=== PATIENT | female | born 1940 | race Caucasian/White ===

== ENCOUNTER 2016-10-26 10:37 | Inpatient (IN) | payer OTHER ==
[2016-10-26 11:14] VITALS: BMI 36.8
[2016-10-26 12:50] LABS: BASOPHILS % (AUTO) 0.5 % (0.0-3.0); EOSINOPHILS # (AUTO) 0.3 K/ul (0.0-0.7); HEMATOCRIT 30.8 % (37.0-47.0); HEMOGLOBIN 9.2 g/dl (12.0-16.0); IMMATURE GRANULOCYTE % (AUTO) 0.4 % (0.0-5.0); LYMPHOCYTES # (AUTO) 1.9 K/uL (0.60-3.4); LYMPHOCYTES % (AUTO) 23.7 (10.0-50.0); MEAN CORPUSCULAR HEMOGLOBIN 24.5 pg (27.0-31.0); MEAN CORPUSCULAR HGB CONC 29.9 (31.8-35.4); MEAN CORPUSCULAR VOLUME 81.9 fl (81.0-99.0); MONOCYTES # (AUTO) 0.5 K/uL (0.4-2.0); MONOCYTES % (AUTO) 6.1 (0-10); NEUTROPHILS # (AUTO) 5.4 K/ul (2.0-6.9); NEUTROPHILS % (AUTO) 66.3; PLATELET COUNT 232 10^3/uL (140-440); RED BLOOD COUNT 3.76 10^6/ul (4.20-5.40)
[2016-10-26 13:17] LABS: ALBUMIN 3.5 g/dL (3.4-5.0); ALBUMIN/GLOBULIN RATIO 0.73; ANION GAP 13.2; BILIRUBIN,TOTAL 0.58 mg/dL (0.00-1.20); BUN/CREATININE RATIO 16.3; CREATININE 0.92 mg/dL (0.60-1.30); POTASSIUM 4.2 mmol/L (3.5-5.10); TOTAL PROTEIN 8.3 g/dL (5.8-8.1)
--- NOTE | 2016-10-26 13:37 | DI ---
EXAM: Chest two view, frontal and lateral views. HISTORY: Shortness of air. COMPARISON: 05/10/2016. FINDINGS: The heart size is normal. There has been previous CABG. There is no pulmonary vascular congestion. The lungs are clear. No pleural effusion or pneumothorax is seen. No acute osseous ab normality identified. Since the prior study, there has been no significant interval change. IMPRESSION: No acute cardiopulmonary process.
--- NOTE | 2016-10-26 13:39 | DI ---
EXAM: Acute abdomen series. HISTORY: Abdominal pain. COMPARISON: CT 08/02/2015. TECHNIQUE: Supine and upright views of the abdomen. FINDINGS: Visualized lungs are clear. Air and stool noted throughout the colon. Staple line seen in the rectum. Air seen within a few mildly distended small bowel loops. No air-fluid levels or fr ee air identified. Calcifications seen over the right renal silhouette. Phleboliths noted in the l ower abdomen and pelvis. Degenerative changes present in the spine.. IMPRESSION: 1. Nonspecific bowel gas pattern. 2. Right nephrolithiasis.
[2016-10-26] MEDS ORDERED: NON-FORMULARY MEDICATION (Calcium Carbonate [Calcium] 500 MG) PO SCH (13:45)
[2016-10-26] MEDS ORDERED: NON-FORMULARY MEDICATION (Losartan Potassium [Losartan Potassium] 100 MG) PO SCH ×22 (13:45)
[2016-10-26] MEDS ORDERED: ASPIRIN EC PO SCH (14:00)
[2016-10-26 15:01] LABS: BILIRUBIN,URINE Negative (NEGATIVE); KETONES,URINE Negative (NEGATIVE); LEUKOCYTE ESTERASE ,URINE Negative (NEGATIVE); NITRITE,URINE Negative (NEGATIVE); PROTEIN,URINE Negative (NEGATIVE); URINE, BLOOD Negative (NEGATIVE)
[2016-10-26 15:15] LABS: ADD URINE MICROSCOPIC NO
[2016-10-26] MEDS: COZAAR PO SCH (15:34)
[2016-10-26] MEDS: CALCIUM 500 + VIT D 200 MG TABLET PO SCH (15:34)
[2016-10-26] MEDS: ASPIRIN EC PO SCH (15:34)
[2016-10-26] MEDS: LOPRESSOR PO SCH ×2 (15:34→21:01)
[2016-10-26] MEDS ORDERED: SITAGLIPTIN PHOS PO SCH (17:30)
[2016-10-26] MEDS ORDERED: [UNRECOGNIZED DRUG - OTHER] PO SCH (17:30)
[2016-10-26] MEDS ORDERED: METFORMIN HCL PO SCH (17:30)
[2016-10-26] MEDS ORDERED: LANTUS SUBCUT SCH ×2 (18:15→21:00)
[2016-10-26] MEDS: GLUCOPHAGE PO SCH (18:25)
[2016-10-26] MEDS: JANUVIA PO SCH (18:25)
[2016-10-26] MEDS ORDERED: MORPHINE 2 MG/ML SYRINGE IVP PRN (18:42)
[2016-10-26] MEDS ORDERED: PROTONIX IV IVP SCH (19:00)
[2016-10-26] MEDS ORDERED: POTASSIUM CHLORIDE 20 MEQ VIAL-ADDITIVE ONLY IV ONE (20:35)
[2016-10-26] MEDS ORDERED: PROTONIX IV ONE (20:35)
[2016-10-26] MEDS: POTASSIUM CHLORIDE 10 MEQ VIAL-ADDITIVE ONLY 20 MEQ in SODIUM CHLORIDE 1,000 ML IV SCH (20:45)
[2016-10-26] MEDS: CLARITIN PO SCH (21:00)
[2016-10-26] MEDS ORDERED: NAPROSYN PO SCH (21:00)
[2016-10-27 05:18] LABS: CHOL/HDL RATIO 7.3 (4.5-5.5)
[2016-10-27] MEDS: ASPIRIN EC PO SCH (08:58)
[2016-10-27] MEDS: LOPRESSOR PO SCH ×2 (08:58→21:43)
[2016-10-27] MEDS: CALCIUM 500 + VIT D 200 MG TABLET PO SCH (08:59)
[2016-10-27] MEDS: JANUVIA PO SCH ×2 (08:59→17:28)
[2016-10-27] MEDS: COZAAR PO SCH (08:59)
[2016-10-27] MEDS: GLUCOPHAGE PO SCH (08:59)
[2016-10-27] MEDS: POTASSIUM CHLORIDE 20 MEQ VIAL-ADDITIVE ONLY 20 MEQ in SODIUM CHLORIDE 1,000 ML IV SCH ×2 (09:35→23:39)
--- NOTE | 2016-10-27 09:59 | HP ---
CHIEF COMPLAINT: Epigastric and right upper quadrant pain. SOURCE OF HISTORY: Patient. HISTORY OF PRESENT ILLNESS: The patient, since about two weeks ago, had experienced aching epigastric pain upon waking up in the morning with increasing intensity towards evening. The patient had been eating less because of the exacerbation of the pain. The pain eases through the night since she takes two Aleve, which partly relieves the discomfort and pain. The pain has increased in intensity prompting her visit to the office today. The patient denied any fever and denied any change in bowel habits. She had no fever or chills. The patient on palpation of the stomach had a markedly tender epigastric area with a mass, which may be liver since she also has tenderness in the right subcostal area. The mass seemed to extend to the midportion of the area between the umbilicus and xiphoid process. The patient was then admitted and because of the abdominal pain and the palpation of the mass for further diagnosis. The patient also is diabetic and had been uncontrolled in the past and the patient was advised Insulin, but refuses to use Insulin and wanted a longer time to see if she can control it with the oral medication. The patient had lost about 4 pounds in a short length of time. 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 The patient had colonoscopy 2015. FAMILY HISTORY: Mother with some heart disease and some members of the family on the maternal side had stroke. Father had congestive heart failure and history of diabetes in the paternal side. Father's side also had diabetes mellitus. SOCIAL HISTORY: The patient is and resides with her . She never did smoke and does not drink any alcoholic beverages. MEDICATIONS: Prior to this admission. Naproxen 250 mg, two tablets at bedtime Losartan 100 mg tablet daily Loratadine 10 mg daily Metoprolol Tartrate 50 mg twice a day Aspirin 81 mg daily Janumet 50/500 mg one twice a day Calcium Carbonate 500 mg tablet daily ALLERGIES: Dilaudid, Penicillin, Sulfa and adhesive tape. REVIEW OF SYSTEMS: CONSTITUTIONAL: The patient has no fever or chills, but is fatigued. She had been feeling tired for sometime. 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 VISUAL: Denies any blurred vision, double vision or transient loss of vision. AUDITORY: The patient's hearing is adequate. No tinnitus, no pain or drainage. Hearing loss on the left side. RESPIRATORY: Denies any shortness of breath with usual exertion and no cough. CARDIOVASCULAR: Denies any chest pain. This patient is known to have coronary artery disease and had a bypass surgery 2009. GASTROINTESTINAL: The patient's appetite is maybe slightly less. The patient had not been eating since food aggravates the pain. She does have pain in the epigastric area, as well as right upper quadrant with marked tenderness to palpation and a palpable mass. The patient on the other parts of the abdomen causes discomfort in the epigastric and right upper quadrant. GENITOURINARY: The patient does have some frequency, but no pain and no urgency. MUSCULOSKELETAL: The patient does have some joint pains. ENDOCRINE: The patient is known to have diabetes mellitus for some time. INTEGUMENT: No rash or pruritus. HEMATOLOGIC: No history of prolonged bleeding. PSYCHIATRIC: Affect is normal. PHYSICAL EXAMINATION: GENERAL: We have a 75 year old female admitted to the hospital because of epigastric pain increasing in intensity with a palpable mass in the epigastric area. VITAL SIGNS: Temperature 97.4, pulse 79, blood pressure left 148/82, right 146/ 78, respiratory rate 18, oxygen saturation 97 on room air. 5'4", 214 pounds and 8 ounces, BMI 36.8. HEAD: Unremarkable. FACE: Symmetrical and equal with no facial weakness. No tenderness in the frontal or maxillary sinus areas to palpation under pressure. EYES: Pupils equal/reactive to light about 3 mm in size. Conjunctivae not pale. Sclerae not icteric. EARS: No drainage. The patient has hearing loss on the left side. MOUTH: Unremarkable. THROAT: No inflammation, no tumors or exudate. NECK: No masses. No bruit. No tenderness. No rigidity. CHEST: Symmetrical and equal with good expansion. No remarkable tenderness. LUNGS: Breath sounds are heard in both sides. No rales or wheezing. HEART: Audible and regular with good tones. No murmurs. ABDOMEN: Flat to slightly protuberant with marked tenderness in the epigastric area, as well as the right upper quadrant. A palpable mass in the epigastric, as well as the medial right subcostal. Mass in of unknown nature and could be liver. Palpation of the lower abdomen revealed no significant tenderness, but does produce discomfort in the upper quadrant of the abdomen. Scar from previous surgeries noted. EXTERNAL GENITALIA: Not examined. PELVIC AND RECTAL: Not done. LOWER EXTREMITIES: Symmetrical and equal and with some ankle edema. Posterior tibial pulses are present. Anterior tibials are absent. UPPER EXTREMITIES: Symmetrical and equal. ASSESSMENT: 1. EPIGASTRIC AND RIGHT UPPER QUADRANT PAIN WITH PALPABLE MASS NATURE UNDETERMINED 2. DIABETES MELLITUS, UNCONTROLLED 3. HYPERTENSION 4. CORONARY ARTERY DISEASE, STATUS POST BYPASS 2009 5. PERIPHERAL ARTERIAL DISEASE, ABSENT ANTERIOR TIBIAL PULSES 6. ELEVATED BMI 36.8 PLAN: 1. This patient will be placed on Insulin. 2. The patient also will have an ultrasound of the abdomen, particularly looking for the liver, pancreas and any abdominal masses in the upper abdomen. If this is not satisfactory, this patient should undergo a CT scan of the abdomen and pelvis with IV contrast. Her E GFR is 60. MTDD
--- NOTE | 2016-10-27 10:27 | US ---
EXAM: Ultrasound abdomen complete HISTORY: Abdominal pain and epigastric mass COMPARISON: None TECHNIQUE: Ultrasound abdomen complete was performed FINDINGS: Visualized pancreatic parenchyma appears normal. There is mild dilation of the pancreatic duct measuring up to 0.65 cm. Liver is coarsened in echogenicity with suggestion of nodular contou r. Liver is mildly enlarged. Gallbladder is fluid-filled without gallbladder wall thickening, aleaxndre cholecystic fluid, or shadowing gallstones. No biliary duct dilation with the common bile duct barbi uring 0.5 cm. Visualized portions aorta and inferior vena cava appear normal. Right kidney measure s 11.7 cm in length and left kidney measures 12.1 cm in length. Small echogenic focus left kidney , representing questionable left nephrolithiasis. No hydronephrosis. Spleen is enlarged, measures 1 4.3 cm in length. Bladder is only mildly distended and poorly evaluated. IMPRESSION: 1. Mild dilation of the pancreatic duct. This finding is indeterminate and CT with contrast is rec ommended for further evaluation. 2. Cirrhotic configuration of the liver suggested. Splenomegaly suggests portal hypertension. 3. Questionable left nephrolithiasis. No hydronephrosis.
[2016-10-27] MEDS: POTASSIUM CHLORIDE 10 MEQ VIAL-ADDITIVE ONLY 20 MEQ in SODIUM CHLORIDE 1,000 ML IV SCH (10:32)
[2016-10-27 12:05] LABS: ALBUMIN/GLOBULIN RATIO 0.75; ANION GAP 15.2; BILIRUBIN,DIRECT 0.22 mg/dL (0.00-0.30); BILIRUBIN,TOTAL 0.43 mg/dL (0.00-1.20); BUN/CREATININE RATIO 17.5; CALCIUM 9.2 mg/dL (8.2-10.2); CREATININE 0.8 mg/dL (0.60-1.30); POTASSIUM 4.2 mmol/L (3.5-5.10)
--- NOTE | 2016-10-27 15:05 | CT ---
EXAM: CT abdomen pelvis with contrast HISTORY: Abdominal pain COMPARISON: Ultrasound same day and CT 08/02/2015 TECHNIQUE: CT abdomen pelvis performed with intravenous contrast. Coronal and sagittal reformatted images obtained. The FINDINGS: Mild bibasilar atelectasis. No free air. No acute abnormalities of the bones. There i s degenerative change in the spine. Heart is normal in size. Liver is enlarged with enlargement o f the left hepatic lobe and caudate with nodular contour of the liver, suggesting cirrhotic configur ation. Gallbladder appears normal. Pancreas appears normal. No pancreatic duct dilation. The splee n is mildly enlarged. Adrenal glands appear normal. There are several small calculi in the right kidney measuring up to 3 mm. There is a 1 cm right renal cyst. No hydronephrosis. Bladder is only mildly distended and poorly evaluated, grossly unremarkable. Aorta normal in caliber with atherosc lerosis of the aorta and is branches. Small fat-containing umbilical hernia. Stomach appears alpesh l. No dilated loops small bowel. Appendix not visualized. There is colonic diverticulosis. There is a sigmoid anastomoses. Patient status post hysterectomy. There is suggestion of a recanalized p araumbilical vein. Redemonstration of stable prominent babak hepatic lymph nodes, grossly unchanged . IMPRESSION: 1. No acute inflammatory process identified in the abdomen or pelvis. 2. Pancreas appears normal without pancreatic duct dilation. The finding on ultrasound was likely t echnical/artifactual. 3. Configuration of the liver suggesting cirrhosis. Mild splenomegaly and suggestion of recanalize d paraumbilical vein suggests portal hypertension. Stable prominent babak hepatic lymph nodes, nons pecific, though likely related to underlying liver disease. 4. Colonic diverticulosis. 5. Right nephrolithiasis. 6. Sigmoid anastomoses.
[2016-10-27] MEDS: HUMALOG SUBCUT PRN ×2 (15:27→17:10)
[2016-10-27] MEDS: PRAVACHOL PO SCH (17:28)
[2016-10-27] MEDS ORDERED: MILK OF MAGNESIA PO STA (20:39)
[2016-10-27] MEDS: PROTONIX IV IVP SCH (20:52)
[2016-10-27] MEDS: LANTUS SUBCUT SCH (21:09)
[2016-10-27] MEDS: CLARITIN PO SCH (21:43)
[2016-10-28] MEDS: HUMALOG SUBCUT PRN ×4 (08:10→20:52)
[2016-10-28] MEDS: ASPIRIN EC PO SCH (09:30)
[2016-10-28] MEDS: CALCIUM 500 + VIT D 200 MG TABLET PO SCH (09:31)
[2016-10-28] MEDS: LOPRESSOR PO SCH ×2 (09:31→20:53)
[2016-10-28] MEDS: COZAAR PO SCH (09:31)
[2016-10-28] MEDS: JANUVIA PO SCH ×2 (09:32→16:54)
[2016-10-28] MEDS: MILK OF MAGNESIA PO SCH (09:33)
[2016-10-28 13:47] LABS: ALBUMIN 3.3 g/dL (3.4-5.0); ALBUMIN/GLOBULIN RATIO 0.72; ANION GAP 13.6; BILIRUBIN,DIRECT 0.24 mg/dL (0.00-0.30); BILIRUBIN,TOTAL 0.46 mg/dL (0.00-1.20); BUN/CREATININE RATIO 17.02; CREATININE 0.94 mg/dL (0.60-1.30); PHOSPHORUS 3.3 mg/dL (2.8-4.1); POTASSIUM 4.6 mmol/L (3.5-5.10); TOTAL PROTEIN 7.9 g/dL (5.8-8.1)
[2016-10-28] MEDS: PRAVACHOL PO SCH (16:54)
[2016-10-28] MEDS: LANTUS SUBCUT SCH (20:51)
[2016-10-28] MEDS: PROTONIX IV IVP SCH (20:52)
[2016-10-28] MEDS: CLARITIN PO SCH (20:53)
[2016-10-29 05:13] LABS: ALBUMIN/GLOBULIN RATIO 0.71; ANION GAP 13.1; BILIRUBIN,DIRECT 0.24 mg/dL (0.00-0.30); BILIRUBIN,TOTAL 0.53 mg/dL (0.00-1.20); BUN/CREATININE RATIO 18.82; CALCIUM 9.8 mg/dL (8.2-10.2); CREATININE 0.85 mg/dL (0.60-1.30); PHOSPHORUS 3.6 mg/dL (2.8-4.1); POTASSIUM 4.1 mmol/L (3.5-5.10); TOTAL PROTEIN 7.2 g/dL (5.8-8.1)
[2016-10-29] MEDS: JANUVIA PO SCH ×2 (08:36→16:32)
[2016-10-29] MEDS: ASPIRIN EC PO SCH (08:36)
[2016-10-29] MEDS: CALCIUM 500 + VIT D 200 MG TABLET PO SCH (08:36)
[2016-10-29] MEDS: MILK OF MAGNESIA PO SCH (08:37)
[2016-10-29] MEDS: LOPRESSOR PO SCH ×2 (08:37→20:15)
[2016-10-29] MEDS: COZAAR PO SCH (08:37)
[2016-10-29] MEDS: HUMALOG SUBCUT PRN ×4 (08:38→21:04)
[2016-10-29 13:00] LABS: H. PYLORI STOOL ANTIGEN NEGATIVE (NEGATIVE); H.PYLORI STOOL AG INTERNAL QC INTERNAL QC VALID
[2016-10-29] MEDS: PRAVACHOL PO SCH (16:32)
[2016-10-29] MEDS: GLUCOPHAGE PO SCH (17:04)
[2016-10-29] MEDS: CLARITIN PO SCH (20:15)
[2016-10-29] MEDS: PROTONIX IV IVP SCH (20:16)
[2016-10-29] MEDS: LANTUS SUBCUT SCH (20:17)
[2016-10-30 04:29] LABS: BASOPHILS % (AUTO) 0.6 % (0.0-3.0); EOSINOPHILS # (AUTO) 0.3 K/ul (0.0-0.7); EOSINOPHILS % (AUTO) 4.3 % (0.0-7.0); HEMATOCRIT 27.6 % (37.0-47.0); HEMOGLOBIN 8.3 g/dl (12.0-16.0); IMMATURE GRANULOCYTE % (AUTO) 0.3 % (0.0-5.0); LYMPHOCYTES # (AUTO) 1.8 K/uL (0.60-3.4); LYMPHOCYTES % (AUTO) 26.1 (10.0-50.0); MEAN CORPUSCULAR HEMOGLOBIN 24.6 pg (27.0-31.0); MEAN CORPUSCULAR HGB CONC 30.1 (31.8-35.4); MEAN CORPUSCULAR VOLUME 81.7 fl (81.0-99.0); MONOCYTES # (AUTO) 0.7 K/uL (0.4-2.0); MONOCYTES % (AUTO) 9.6 (0-10); NEUTROPHILS % (AUTO) 59.1; PLATELET COUNT 216 10^3/uL (140-440); RED BLOOD COUNT 3.38 10^6/ul (4.20-5.40); WHITE BLOOD COUNT 6.74 K/ul (4.6-10.2)
[2016-10-30 04:51] LABS: ALBUMIN/GLOBULIN RATIO 0.73; BILIRUBIN,TOTAL 0.48 mg/dL (0.00-1.20); BUN/CREATININE RATIO 20.68; CALCIUM 9.8 mg/dL (8.2-10.2); CHOL/HDL RATIO 6.4 (4.5-5.5); CREATININE 0.87 mg/dL (0.60-1.30); TOTAL PROTEIN 7.1 g/dL (5.8-8.1)
[2016-10-30] MEDS: HUMALOG SUBCUT PRN ×2 (08:00→12:20)
[2016-10-30] MEDS: ASPIRIN EC PO SCH (08:40)
[2016-10-30] MEDS: GLUCOPHAGE PO SCH (08:40)
[2016-10-30] MEDS: CALCIUM 500 + VIT D 200 MG TABLET PO SCH (08:41)
[2016-10-30] MEDS: JANUVIA PO SCH (08:41)
[2016-10-30] MEDS: COZAAR PO SCH (08:42)
[2016-10-30] MEDS: LOPRESSOR PO SCH (08:43)
--- NOTE | 2016-10-30 09:11 | PN ---
DATE OF VISIT: 10/29/16 SUBJECTIVE: The patient is alert, with a better humor today. I did tell her in the presents of her that her blood sugar is lower now below 200, 196. We will see how it is tomorrow. She does tell me that she knows how to give herself a shot with insulin and also knows about how much or how to draw the insulin from the vial. If her insurance would approve a FlexPen then we will prescribe her a FlexPen but we would need to know if the insurance would approve that and if not this patient will be given vials, plus needles but syringes in order to give herself insulin. Her appetite seems to be good. LABS: Chemistries today showed normal electrolytes, normal CO2, EGFR is 65, blood sugar fasting 196 from 278 yesterday and 221 the other day and was 368 on admission. [facility]
--- NOTE | 2016-10-30 09:16 | PN ---
DATE OF VISIT: 10/27/16 SUBJECTIVE: The patient is alert, oriented times four, not dyspneic or tachypneic. Her is present during the course of the conversation. I did tell her what we found on the ultrasound and CT scan. I told her that she has cirrhosis of the liver and most likely secondary to obesity since she doesn't drink alcohol. There is no indication of any tumor any inflammation in her abdomen. The liver is somewhat enlarged. I told her that the pain and tenderness in the pit of the stomach on the right side of the upper abdomen is due to the liver that is enlarged at this time. I informed her that the liver cirrhosis is most likely due to obesity. I did advise her that she needed to exercise and lose weight. We had discussed this for a long time previously. This patient had coronary artery disease and it is imperative also that she would need to lose some weight. She told me that she could not exercise because she gets short of breath and she has arthritic problems in the joints. I did tell her that the shortness of breath sometimes is due to multiple reasons, one most likely is deconditioning. We may have to start slowly and increasing. The asked me if an exercise gadget would help and I said yes. He was thinking about one that someone could just stand and move forward and backward like walking but not moving the legs and also using the arm at the same time. I did tell her that we probably will need to keep her for another 2 to 3 days to get a better handle on the diabetes. She now will be on insulin to get better control. Her diabetes is uncontrolled. The patient will be given diabetic teaching while in the hospital. OBJECTIVE: VITAL SIGNS: At 6 o'clock in the evening: Temperature 97.6, pulse 75, BP 108/62 , respiratory rate 20, oxygen saturation 95% on room air. MTDD
[2016-10-30] MEDS: MILK OF MAGNESIA PO SCH (09:17)
[2016-10-30 10:13] VITALS: BP 121/67; TEMP 97.8
--- NOTE | 2016-10-31 09:59 | DS ---
DATE OF ADMISSION: 10/26/16 DATE OF DISCHARGE: 10/30/16 PATIENT IDENTIFICATION: The patient is a 75 year old female was seen at the office complaining of epigastric pain for about 2 weeks. The pain begins upon waking up in the morning with increasing intensity towards the evening. She does take two Aleve to help the pain in the evening. The pain is increasing in intensity prompting the office visit. The patient during the examination is alert and oriented with movement of all extremities, not dyspneic or tachypneic and no obvious distress. Palpation of the abdomen revealed a mass beginning from the midline and extending about 4 fingerbreadths. It is markedly tender and the epigastric area is also tender. The patient has tenderness also on the subcostal area. The tenderness is elicited by palpating the palpable mass. The patient was then admitted to the hospital because of the persistent pain and the palpable mass with tenderness. HOSPITAL COURSE: The patient during this admission had the following investigation; CBC on admission and also on discharge 10/26 and 10/30 respectively or essentially unchanged showing moderate anemia 9.2hgb and 8.3 on discharge. MCV 81.9 and 81.7 , MCHC 24.5 and 24.6 respectively, RDW 15.9 and 15.9. Chemistries were ordered 10/26, 10/27, 10/28,10/29 and 10/30. Electrolytes and CO2 were essentially unremarkable and were normal. BUN was normal, Creatinine within normal, EGFR 60 to 70. Blood sugar on admission 368, hgb A1c 11.3. AST 51, ALT 50, Total protein 8.3 on admission but has decreased during the hospital stay probably secondary to hydration. Albumin 3.5 subsequently below normal at 3.0. Lipid is normal except for the markedly low HDL 22, ratio elevated 7.3. Amylase and Lipase normal. The patient's fasting blood sugar had gradually in a downward tend on 368, 221, 278, 196 and 200. This patient is receiving Lantus insulin and Humalog sliding scale. Chest X-ray on admission showed no acute cardiopulmonary process supine and abdominal x-rays non-specific gas bowel pattern and right nephrolithiasis. Abdominal ultrasound showed mild dilation of the pancreatic duct, finding is indeterminate and CT with contrast recommended, Cirrhotic configuration of the liver suggested. Splenomegaly suggests portal hypertension and Questionable left nephrolithiasis and Hydronephrosis. CAT scan of the abdomen and pelvis with IV contrast No acute inflammatory process identified in the abdomen and pelvis, pancreas appears normal without pancreatic duct dilation, configuration of the liver suggesting cirrhosis, mild splenomegaly and suggestion of recanalized paraumbilical vein suggesting protal hypertension, stable prominent babak hepatic lymph nodes, nonspecific though likely related to underlying liver disease, Colonic diverticulosis and Right nephrolithiasis. The patient during this hospital stay showed a normal temperature, blood pressure within normal and no wide fluctuation, pulse ranged from 69 to 80, respiratory rate 14 to 20 and oxygen saturation ranged from 94 to 97% at room air. The patient's BMI at this admission is 36.7. The patient's medication from home consisted on Naproxen 250mg two at night, Losartan 100mg daily, Loratadine 10mg daily, Metoprolol 50mg twice a day tartrate, Aspirin 81mg daily, Janumet 50-500mg one twice a day and Calcium carbonate 500mg daily. Drug Allergies: Hydromorphone, Penicillin, Sulfonamide and TAPE. The patient was continued on the home medication except the Naproxen and one half sodium Chloride 1,000cc pulse potassium 20meq running at 12 hours per 1, 000. She also was given Protonix intervenously daily and initiated on Lantus insulin at 10 units SUBCUT at bedtime increased to 30. The patient was also placed on sliding scale using the formula of blood sugar determined minus 100 divided by 20 equals the number of units to be given at breakfast, at lunch and at supper time. No coverage for the evening. The patient has tolerated the insulin injection and she was education on how to do the injection. She already does the Accu-check at home and the patient was instructed to have the Accu- check done before breakfast, before lunch and before supper. I did ask her to write down the numbers that she had obtained from testing. I did advise her to come and see me a week from today and should bring the number or the recordings. She was given a prescription of the Protonix 40mg daily, Pravastatin 40mg daily at bedtime, Lantus Solostar 30units SUBCUT at 9:00 in the evening and Humalog for sliding scale Kwikpen. Also prescribed is [employer] breeze test strips and Lancets for the sugar monitoring. The patient at discharge is alert, ambulatory with movement of all extremities and cheerful with no facial weakness. LUNGS: clear to auscultation in both side HEART: Audible and regular with good tones ABDOMEN: Markedly less tender including the mass which is the liver enlargement. The was present in the course of the instruction. I did advise the patient to pursue a slow increasing exercise to be done several times a day and to avoid simple carbohydrates such as bread, white potato or anything that has wheat. Diet should consist mostly of vegetables, meat and fish. Calories should also be limited to about 1,800. She is advised to drink water instead of any soda either diet or non-diet. To resume the Janumet. FINAL DIAGNOSES: 1. Mass GIBSON (non-alcoholic steatohepatitis) 2. Diabetes Mellitus, uncontrolled 3. Elevated BMI 4. Coronary artery disease, post bypass MTDD
--- NOTE | 2017-01-11 08:47 | PN ---
DATE OF VISIT: 10/28/16 The patient's blood sugar this morning is 278. The AST is slightly higher than admission 62 from 51. The GFR has fluctuated and it was 60 and then on the second day was 70 and now down to 58. VITALS SIGNS: At 5:32 p.m. 10/28/2016 showed a temperature of 97, pulse 72, blood pressure 127/66, respiratory rate 18, oxygen saturation 97 at room air. The patient is able to consume about 100% of her snack, as well as lunch. Accuchecks were 242 and 248 respectively. LUNGS: Breath sounds are heard in both sides. No rales or wheezing. HEART: Audible and regular with good tones. No murmurs. ABDOMEN: No tenderness. LOWER EXTREMITIES: No tenderness in the calf muscles. Condition: Stable. MTDD
== END 2016-10-30 14:49 | disposition home or self-care (01) | DRG 442 ==
LOC: MEDSURG B 10:37
PROVIDERS: ADMIT General Practice; ATTEND General Practice
DX: K75.81 Nonalcoholic steatohepatitis (NASH) (principal); K76.6 Portal hypertension; E11.65 Type 2 diabetes mellitus with hyperglycemia; R63.8 Other symptoms and signs concerning food and fluid intake; I25.10 Atherosclerotic heart disease of native coronary artery without angina pectoris; N20.0 Calculus of kidney; K74.60 Unspecified cirrhosis of liver; R16.1 Splenomegaly, not elsewhere classified; K57.30 Diverticulosis of large intestine without perforation or abscess without bleeding; E66.9 Obesity, unspecified; Z79.84 Long term (current) use of oral hypoglycemic drugs; Z95.1 Presence of aortocoronary bypass graft; Z79.899 Other long term (current) drug therapy; Z71.89 Other specified counseling
CPT/HCPCS: 36415; 80053; 80061; 81001; 82150; 82248; 82378; 82962; 83036; 83519; 83525; 83690; 84100; 84681; 85025; 87338; 97802; 99223; 99232; 99239

== ENCOUNTER 2016-12-29 16:46 | Emergency (ER) ==
[2016-12-29] MEDS ORDERED: ASPIRIN CHEWABLE ONE (16:50)
[2016-12-29] MEDS ORDERED: ASPIRIN CHEWABLE PO STA ×2 (16:59→17:34)
[2016-12-29 17:00] VITALS: BP 178/84; TEMP 98.5; BMI 30.9
[2016-12-29] MEDS ORDERED: LOPRESSOR IVP STA (17:00)
[2016-12-29 17:06] LABS: BASOPHILS % (AUTO) 0.3 % (0.0-3.0); EOSINOPHILS # (AUTO) 0.2 K/ul (0.0-0.7); EOSINOPHILS % (AUTO) 2.4 % (0.0-7.0); HEMOGLOBIN 9.2 g/dl (12.0-16.0); IMMATURE GRANULOCYTE % (AUTO) 0.3 % (0.0-5.0); LYMPHOCYTES % (AUTO) 22.1 (10.0-50.0); MEAN CORPUSCULAR HEMOGLOBIN 24.1 pg (27.0-31.0); MEAN CORPUSCULAR HGB CONC 30.7 (31.8-35.4); MEAN CORPUSCULAR VOLUME 78.7 fl (81.0-99.0); MONOCYTES # (AUTO) 0.7 K/uL (0.4-2.0); MONOCYTES % (AUTO) 7.7 (0-10); NEUTROPHILS # (AUTO) 5.9 K/ul (2.0-6.9); NEUTROPHILS % (AUTO) 67.2; PLATELET COUNT 228 10^3/uL (140-440); RED BLOOD COUNT 3.81 10^6/ul (4.20-5.40); WHITE BLOOD COUNT 8.85 K/ul (4.6-10.2)
--- NOTE | 2016-12-29 17:14 | ED.PDOC ---
General ED Provider: Dr. GREYSON JIMENEZ Chief Complaint: Chest Pain Stated Complaint: chest pain Time Seen by Physician: 16:50 (chest pain) Information Source: Patient Exam Limitations: No limitations [facility] and Triage Documentation Reviewed and Agree: Yes (took one asprin 81mg this morning) Cardiovascular Complaint Exam - Chest Pain Complaint/Exam Onset: Sudden Duration: 2 hrs ago Symptoms Are: Still present (but resolved about 5pm) Timing: Intermittent Initial Severity: Moderate Current Severity: None Location: Reports: Midsternal Pain Radiates: Reports: None Character: Reports: Aching Aggravating: Reports: None Alleviating: Reports: Rest, Spontaneous resolution Associated Signs and Symptoms: Denies: Diaphoresis, Nausea, Vomiting, Fever, Palpitations, Cough, Hemoptysis, Back pain, Abdominal pain, Dizziness, Short of air, Calf pain, Calf swelling AMI/ACS Risk Factors: Reports: Sedentary, Diabetes, Hypertension, Dyslipidemia TAD Risk Factors: Reports: Hypertension Pulmonary Embolism Risk Factors: Reports: None Prior Care for this Complaint: No Recent Stress Test: No Recent Echo/LV Function: No JVD Present: No Subcutaneous Emphysema Present: No Diminshed Breath Sounds: No Reproducible Chest Wall Pain: No Bilateral Pulses Present: No Unequal Pulses Noted: No If Risk Factors for AMI/ACS Consider: EKG, Cardiac Enzymes Differential Diagnoses: Acute VT Quality Indicators For Acute VT or Cardiac Chest Pain: EKG in 10min. Review of Systems - Review Of Systems Constitutional: Reports: No symptoms Eyes: Reports: No symptoms Ears, Nose, Mouth, Throat: Reports: No symptoms Respiratory: Reports: No symptoms Cardiac: Reports: Chest pain GI: Reports: No symptoms : Reports: No symptoms Musculoskeletal: Reports: No symptoms Skin: Reports: No symptoms Neurological: Reports: No symptoms Endocrine: Reports: No symptoms Hematologic/Lymphatic: Reports: No symptoms All Other Systems: Reviewed and Negative Past Medical History - Past Medical History Previously Healthy: No Endocrine: Reports: DM 2, Dyslipidemia Cardiovascular: Reports: CAD, Hypertension Respiratory: Reports: None Hematological: Reports: None Gastrointestinal: Reports: None Genitourinary: Reports: None Neuro/Psych: Reports: None Musculoskeletal: Reports: None Cancer: Reports: None Last Menstrual Period: unknown - Surgical History General Surgical History: Reports: CABG, Unknown (colon surgery for diverticular disease ) - Family History Family History: Reports: Unknown - Social History Smoking Status: Never smoker Hx Substance Use: No Alcohol Screening: None Physical Exam - Physical Exam Appearance: Well-appearing, No pain distress, Well-nourished Eyes: RENATA, EOMI, Conjunctiva clear ENT: Ears normal, Nose normal, Oropharynx normal Respiratory: Airway patent, Breath sounds clear, Breath sounds equal, Respirations nonlabored Cardiovascular: RRR, Pulses normal, No rub, No murmur GI/: Soft, Nontender, No masses, Bowel sounds normal, No Organomegaly Musculoskeletal: Normal strength, ROM intact, No edema, No calf tenderness Skin: Warm, Dry, Normal color Neurological: Sensation intact, Motor intact, Reflexes intact, Cranial nerves intact, Alert, Oriented Psychiatric: Affect appropriate, Mood appropriate Interpretation - Radiology Interpretation Radiology Interpretation By: Radiologist (normal sinus with st elevation anterior leads) Critical Care Note - Critical Care Note Total Time (mins): 1 Course - Course Hematology/Chemistry: 12/29/16 16:45 Orders, Labs, Meds: Lab Review 12/29/16 16:45 WBC 8.85 RBC 3.81 L Hgb 9.2 L Hct 30.0 L MCV 78.7 L MCH 24.1 L MCHC 30.7 L RDW Coeff of Tawanna 17.0 H Plt Count 228 Immature Gran % (Auto) 0.3 Neut % (Auto) 67.2 Lymph % (Auto) 22.1 [place] % (Auto) 7.7 Eos % (Auto) 2.4 Baso % (Auto) 0.3 Immature Gran # (Auto) 0.0 Neut # 5.9 Lymph # 2.0 [place] # 0.7 Eos # 0.2 Baso # 0.0 Orders Category Date Time Status EKG-(ED ONLY) Stat CARDIO 12/29/16 16:59 Ordered ED IV/MEDIPORT/POWERPORT .ONCE EMERGENCY 12/29/16 16:58 Active CBC W/ AUTO DIFF Stat LAB 12/29/16 16:45 Completed COMPREHENSIVE METABOLIC PANEL Stat LAB 12/29/16 16:45 Received CREATINE KINASE Stat LAB 12/29/16 16:45 Received PARTIAL THROMBOPLASTIN TIME Stat LAB 12/29/16 16:45 Received PT WITH INR Stat LAB 12/29/16 16:45 Received TROPONIN I Stat LAB 12/29/16 16:45 Received 0.9 % Sodium Chloride [Saline Flush] MEDS 12/29/16 16:58 Ordered 1 syr IVF PRN PRN Aspirin [Aspirin Chewable] MEDS 12/29/16 16:50 Discontinued 324 mg .ROUTE .STK-MED ONE Aspirin [Aspirin Chewable] MEDS 12/29/16 16:59 Discontinued 324 mg PO ONCE STA Metoprolol Tartrate [Lopressor] MEDS 12/29/16 17:00 Discontinued 5 mg IVP ONCE STA CHEST, 1V AP ONLY Stat RADS 12/29/16 16:58 Ordered Medications Generic Name Dose Route Start Last Admin Trade Name Freq PRN Reason Stop Dose Admin Sodium Chloride 1 syr 12/29/16 16:58 Saline Flush IVF PRN PRN To flush IV Discontinued Medications Generic Name Dose Route Start Last Admin Trade Name Freq PRN Reason Stop Dose Admin Aspirin 324 mg 12/29/16 16:59 Aspirin Chewable PO 12/29/16 17:00 ONCE STA Metoprolol Tartrate 5 mg 12/29/16 17:00 Lopressor IVP 12/29/16 17:01 ONCE STA Vital Signs: Temp Pulse Resp BP Pulse Ox 12/29/16 16:47 98.5 F 79 20 178/84 H 98 DRAGAN Risk Score DRAGAN Risk Score: Risk Score Odds of by 30D 0 0.1 (0.1-0.2) 1 0.3 (0.2-0.3) 2 0.4 (0.3-0.5) 3 0.7 (0.6-0.9) 4 1.2 (1.0-1.5) 5 2.2 (1.9-2.6) 6 3.0 (2.5-3.6) 7 4.8 (3.8-6.1) Departure - Departure Time of Disposition: 17:00 Disposition: TSF SHORT-TRM HOSP Discharge Problem: Chest pain, Acute VT Instructions: Chest Pain (ED) Condition: Good Pt referred to PMD for follow-up: Yes ([facility] [employer]SF[employer] TO [employer]) Allergies/Adverse Reactions: Allergies hydromorphone HCl [From Dilaudid] Allergy (Unverified 11/06/16 14:09) Flushed and very nauseated, dizzy. Penicillins Allergy (Unverified 11/06/16 14:09) Sulfa (Sulfonamide Antibiotics) Allergy (Unverified 11/06/16 14:09) TAPE Adverse Reaction (Uncoded 10/25/15 15:15) Home Medications: Ambulatory Orders Aspirin [Aspir 81] 81 mg PO DAILY 08/02/15 Loratadine [Allergy Relief] 10 mg PO BEDTIME 08/02/15 Losartan Potassium 100 mg PO DAILY 08/02/15 Metoprolol Tartrate 50 mg PO BID 08/02/15 Sitagliptin Phos/Metformin HCl [Janumet 50-500 mg Tablet] 1 each PO BID #60 tab- cap 08/18/15 Calcium Carbonate [Calcium] 500 mg PO DAILY 10/26/16 Insulin Glargine,Hum.rec.anlog [Lantus Solostar] 30 unit SQ BEDTIME #1 insuln.pen 10/30/16 Insulin Lispro [Humalog Kwikpen] 100 unit SQ TIDWM #1 insuln.pen 10/30/16 Pantoprazole Sodium [Protonix] 40 mg PO QDAC #30 tablet. 10/30/16 Pravastatin Sodium [Pravachol] 40 mg PO QPM #30 tablet 10/30/16 Disposition Discussed With: Patient
[2016-12-29 17:18] LABS: PARTIAL THROMBOPLASTIN TIME 23.9 SEC (23.9-40.0); PROTHROMBIN TIME 11.2 SEC (9.3-11.0)
[2016-12-29 17:27] LABS: ALBUMIN 3.7 g/dL (3.4-5.0); ALBUMIN/GLOBULIN RATIO 0.8; ANION GAP 11.8; BILIRUBIN,TOTAL 0.45 mg/dL (0.00-1.20); BUN/CREATININE RATIO 18.36; CALCIUM 10.1 mg/dL (8.2-10.2); CREATININE 0.98 mg/dL (0.60-1.30); POTASSIUM 3.8 mmol/L (3.5-5.10); TOTAL PROTEIN 8.3 g/dL (5.8-8.1); TROPONIN I 0.015 ng/ml (0.0000-0.4000)
--- NOTE | 2016-12-29 17:36 | DI ---
Examination: Single radiographic image of the chest. Comparison: 10/26/2016. Reason for study: Pain. FINDINGS: No pneumothorax, pleural effusion, or focal consolidation. The cardiac silhouette is pro minent in size. Operative changes are seen after midline sternotomy. Increased lung markings are see n in both lung bases likely accentuated by summation and positioning. Impression: Cardiomegaly with increased lung markings bilaterally consistent with pulmonary edema. Findings may be accentuated by positioning and summation artifact.
== END 2016-12-29 17:59 | disposition short-term general hospital (02) ==
LOC: ED 16:46
DX: I21.3 ST elevation (STEMI) myocardial infarction of unspecified site (principal); I10 Essential (primary) hypertension; E11.9 Type 2 diabetes mellitus without complications; E78.5 Hyperlipidemia, unspecified; I25.810 Atherosclerosis of coronary artery bypass graft(s) without angina pectoris; Z79.899 Other long term (current) drug therapy
CPT/HCPCS: 36415; 80053; 82550; 84484; 85025; 85610; 85730; 93005; 93010; 96374; 99285

== ENCOUNTER 2016-12-29 17:57 | Outpatient (CLI) ==
[2016-12-29 17:00] VITALS: BMI 30.9
== END 2016-12-29 17:58 ==
LOC: AMBL 17:57
PROVIDERS: ATTEND Internal Medicine
DX: R07.9 Chest pain, unspecified (principal); R94.31 Abnormal electrocardiogram [ECG] [EKG]

== ENCOUNTER 2017-01-07 05:13 | Emergency (ER) ==
[2017-01-07 05:32] VITALS: BP 168/81; TEMP 98.9; BMI 34.3
[2017-01-07 05:49] LABS: BASOPHILS % (AUTO) 0.3 % (0.0-3.0); EOSINOPHILS # (AUTO) 0.3 K/ul (0.0-0.7); EOSINOPHILS % (AUTO) 2.3 % (0.0-7.0); HEMATOCRIT 34.8 % (37.0-47.0); IMMATURE GRANULOCYTE % (AUTO) 0.4 % (0.0-5.0); LYMPHOCYTES # (AUTO) 1.4 K/uL (0.60-3.4); LYMPHOCYTES % (AUTO) 12.4 (10.0-50.0); MEAN CORPUSCULAR HEMOGLOBIN 25.2 pg (27.0-31.0); MEAN CORPUSCULAR HGB CONC 31.6 (31.8-35.4); MEAN CORPUSCULAR VOLUME 79.6 fl (81.0-99.0); MONOCYTES # (AUTO) 0.6 K/uL (0.4-2.0); MONOCYTES % (AUTO) 5.3 (0-10); NEUTROPHILS # (AUTO) 8.8 K/ul (2.0-6.9); NEUTROPHILS % (AUTO) 79.3; PLATELET COUNT 236 10^3/uL (140-440); RED BLOOD COUNT 4.37 10^6/ul (4.20-5.40); WHITE BLOOD COUNT 11.09 K/ul (4.6-10.2)
[2017-01-07 05:53] LABS: BILIRUBIN,URINE Negative (NEGATIVE); KETONES,URINE Negative (NEGATIVE); LEUKOCYTE ESTERASE ,URINE Negative (NEGATIVE); NITRITE,URINE Negative (NEGATIVE); PROTEIN,URINE Negative (NEGATIVE); URINE, BLOOD 3+ (NEGATIVE)
[2017-01-07 05:58] LABS: ADD URINE MICROSCOPIC YES
--- NOTE | 2017-01-07 06:01 | CT ---
EXAM: CT of the abdomen and pelvis without contrast. HISTORY: Flank pain. PROCEDURE: Contiguous axial CT images of the abdomen and pelvis without contrast with coronal and s agittal reformats. FINDINGS: The liver is normal in appearance. The gallbladder is enlarged measuring 4.7 cm in diamet er. The pancreas, spleen, adrenal glands and left kidney are normal in appearance. There is a 0.4 c m calcification in the distal right ureter just proximal to the ureterovesicle junction with mild ri ght hydronephrosis and hydroureter. There are nonobstructive calcifications in the right kidney. T he abdominal aorta is within normal limits in diameter. There is diverticulosis of the colon with no evidence of diverticulitis. There are surgical sutures along the margin of the sigmoid colon. The a ppendix is not visualized. No free fluid or free air in the abdomen or pelvis. The bladder is minim ally filled which limits the evaluation. Uterus is surgically absent. There is a small umbilical h ernia containing only fat. There are degenerative changes in the spine. There is minimal stranding o f the subcutaneous fat in the right inguinal region. Impression: Right ureterolithiasis as described with mild right hydronephrosis and hydroureter. Nonobstructive right nephrolithiasis. Enlarged gallbladder as described. Diverticulosis of the colon. Small umbilical hernia as described. Hysterectomy. Minimal inflammatory stranding of the subcutaneous fat in the right inguinal region.
[2017-01-07] MEDS ORDERED: TORADOL IM STA (06:06)
[2017-01-07 06:10] LABS: ALBUMIN 3.2 g/dL (3.4-5.0); ALBUMIN/GLOBULIN RATIO 0.73; ANION GAP 13.6; BILIRUBIN,TOTAL 0.55 mg/dL (0.00-1.20); BUN/CREATININE RATIO 15.05; CALCIUM 10.3 mg/dL (8.2-10.2); CREATININE 0.93 mg/dL (0.60-1.30); POTASSIUM 4.6 mmol/L (3.5-5.10); TOTAL PROTEIN 7.6 g/dL (5.8-8.1)
[2017-01-07 06:21] LABS: ERYTHROCYTE SEDIMENTATION RATE 60 mm/hr (0-20); ESR INTERNAL QC INTERNAL QC VALID
--- NOTE | 2017-01-07 06:51 | ED.PDOC ---
General ED Provider: Dr. KARLOS MEREDITH-ER Chief Complaint: Urinary Problem Stated Complaint: im hurting--i think i have a kidney stone Time Seen by Physician: 05:25 Mode of Arrival: Walk-In Information Source: Patient Exam Limitations: No limitations Primary [facility] Nursing and Triage Documentation Reviewed and Agree: Yes GI Complaint Exam - Abdominal Pain Complaint/Exam Onset: Gradual Duration: 4hrs Symptoms Are: Still present Timing: Constant Initial Severity: Mild Current Severity: Moderate Location of Pain: Discrete, RLQ Radiates To: Reports: Flank, RLQ Character: Reports: Dull, Aching Aggravating: Reports: None Alleviating: Reports: None Associated Signs and Symptoms: Reports: Back pain, Nausea. Denies: Diaphoresis , Fever, Cough, Chest pain, Dizziness, Constipation, Blood in stool, Dysuria, Urinary frequency, Decreased urine output, Decreased appetite, Vaginal bleeding , Vaginal discharge, Vomiting, Diarrhea, Sore throat Related History: Reports: Similar episode Patient Rh Status: Unknown Abdominal Findings: Present: None Differential Diagnoses: Renal Colic, Ureteral Stone Review of Systems - Review Of Systems Constitutional: Reports: No symptoms Eyes: Reports: No symptoms Ears, Nose, Mouth, Throat: Reports: No symptoms Respiratory: Reports: No symptoms Cardiac: Reports: No symptoms GI: Reports: Abdominal pain, Nausea : Reports: No symptoms Musculoskeletal: Reports: No symptoms Skin: Reports: No symptoms Neurological: Reports: No symptoms Endocrine: Reports: No symptoms Hematologic/Lymphatic: Reports: No symptoms All Other Systems: Reviewed and Negative Past Medical History - Past Medical History Previously Healthy: No Endocrine: Reports: DM 2, Dyslipidemia Cardiovascular: Reports: CAD, Hypertension Respiratory: Reports: None Hematological: Reports: None Gastrointestinal: Reports: None Genitourinary: Reports: None Neuro/Psych: Reports: None Musculoskeletal: Reports: None Cancer: Reports: None Last Menstrual Period: post menopausal - Surgical History General Surgical History: Reports: CABG, Unknown (colon surgery for diverticular disease ) - Family History Family History: Reports: Unknown - Social History Smoking Status: Never smoker Hx Substance Use: No Alcohol Screening: None Lives: With family - Immunizations Tetanus Shot up to Date: Yes Physical Exam - Physical Exam Appearance: Well-appearing, No pain distress, Well-nourished Pain Distress: Moderate Eyes: RENATA, EOMI, Conjunctiva clear ENT: Ears normal, Nose normal, Oropharynx normal Neck: Supple Respiratory: Airway patent Cardiovascular: RRR, Pulses normal, No rub, No murmur GI/: Soft, Nontender, No masses, Bowel sounds normal, No Organomegaly Musculoskeletal: Normal strength, ROM intact, No edema, No calf tenderness Skin: Warm, Dry, Normal color Neurological: Sensation intact, Motor intact, Reflexes intact, Cranial nerves intact, Alert, Oriented Psychiatric: Affect appropriate Interpretation - Radiology Interpretation Radiology Interpretation By: Radiologist Radiology Results: Positive Exam Interpreted: CT Scan ("right ureteral stone") Re-Evaluation - Re-Evaluation Time of Re-Evaluation: 06:51 Status: Improved Vital Signs Stable: Yes Pain Level: 1 Appearance: NAD Lungs: Clear Skin: Warm and Dry Neuro: Alert and Oriented X3 CV: RRR Critical Care Note - Critical Care Note Total Time (mins): 0 Course - Course Hematology/Chemistry: 01/07/17 05:48 01/07/17 05:48 Orders, Labs, Meds: Lab Review 01/07/17 01/07/17 05:41 05:48 WBC 11.09 H RBC 4.37 Hgb 11.0 L Hct 34.8 L MCV 79.6 L MCH 25.2 L MCHC 31.6 L RDW Coeff of Tawanna 18.7 H Plt Count 236 Immature Gran % (Auto) 0.4 Neut % (Auto) 79.3 Lymph % (Auto) 12.4 [place] % (Auto) 5.3 Eos % (Auto) 2.3 Baso % (Auto) 0.3 Immature Gran # (Auto) 0.0 Neut # 8.8 H Lymph # 1.4 [place] # 0.6 Eos # 0.3 Baso # 0.0 ESR 60 H Sodium 138 Potassium 4.6 Chloride 103 Carbon Dioxide 26 Anion Gap 13.6 BUN 14 Creatinine 0.93 Estimated GFR (MDRD) 59.00 BUN/Creatinine Ratio 15.05 Glucose 126 H Calcium 10.3 H Total Bilirubin 0.55 AST 25 ALT 25 Alkaline Phosphatase 80 Total Protein 7.6 Albumin 3.2 L Globulin 4.4 Albumin/Globulin Ratio 0.73 Amylase 41 Lipase 78 Urine Color Yellow Urine Clarity Slightly Urine pH 5.0 Ur Specific [place] 1.015 Urine Protein Negative Urine Glucose (UA) Negative Urine Ketones Negative Urine Blood 3+ Urine Nitrite Negative Urine Bilirubin Negative Urine Urobilinogen 0.2 Ur Leukocyte Esterase Negative Urine Microscopic RBC 50-100 Urine Microscopic WBC 0-2 Ur Squamous Epith Cells 0-2 Orders Category Date Time Status AMYLASE Stat LAB 01/07/17 05:48 Completed CBC W/ AUTO DIFF Stat LAB 01/07/17 05:48 Completed COMPREHENSIVE METABOLIC PANEL Stat LAB 01/07/17 05:48 Completed ESR Stat LAB 01/07/17 05:48 Completed LIPASE Stat LAB 01/07/17 05:48 Completed URINALYSIS C & S IF INDICATED Stat LAB 01/07/17 05:41 Completed Ketorolac Tromethamine [Toradol] MEDS 01/07/17 06:06 Discontinued 60 mg IM ONCE STA CT ABDOMEN/PELVIS WO CONTRAST Stat RADS 01/07/17 05:15 Completed Medications Discontinued Medications Generic Name Dose Route Start Last Admin Trade Name Freq PRN Reason Stop Dose Admin Ketorolac Tromethamine 60 mg 01/07/17 06:06 01/07/17 06:15 Toradol IM 01/07/17 06:07 60 mg ONCE STA Administration Vital Signs: Temp Pulse Resp BP Pulse Ox 01/07/17 05:22 98.9 F 68 20 168/81 H 98 Departure - Departure Time of Disposition: 06:52 Disposition: HOME SELF-CARE Discharge Problem: Ureteral stone Instructions: Ureteral Stones (ED), Renal Colic (ED) Condition: Good Pt referred to PMD for follow-up: Yes Additional Instructions: strain all urine--norco 7.mg q 4hrs prn pain #10--flomax 0.4mg q daily #3-- fluids--recheck in pcp in 48hrs if not passed Allergies/Adverse Reactions: Allergies hydromorphone HCl [From Dilaudid] Allergy (Verified 01/07/17 05:32) Flushed and very nauseated, dizzy. Penicillins Allergy (Verified 01/07/17 05:32) Sulfa (Sulfonamide Antibiotics) Allergy (Verified 01/07/17 05:32) TAPE Adverse Reaction (Uncoded 01/07/17 05:32) Home Medications: Ambulatory Orders Aspirin [Aspir 81] 81 mg PO DAILY 08/02/15 Loratadine [Allergy Relief] 10 mg PO BEDTIME 08/02/15 Losartan Potassium 100 mg PO DAILY 08/02/15 Metoprolol Tartrate 50 mg PO BID 08/02/15 Sitagliptin Phos/Metformin HCl [Janumet 50-500 mg Tablet] 1 each PO BID #60 tab- cap 08/18/15 Insulin Lispro [Humalog Kwikpen] 100 unit SQ TIDWM #1 insuln.pen 10/30/16 Pantoprazole Sodium [Protonix] 40 mg PO QDAC #30 tablet. 10/30/16 Pravastatin Sodium [Pravachol] 40 mg PO QPM #30 tablet 10/30/16 Calcium Carbonate/Vitamin D3 [Calcium 600-Vit D3 800 Tablet] 600 - 800 mg PO DAILY 01/07/17 Ferrous Sulfate 325 mg PO DAILY 01/07/17 Isosorbide Mononitrate [Isosorbide Mononitrate ER] 60 mg PO DAILY 01/07/17 Disposition Discussed With: Patient, Family
[2017-01-07] MEDS ORDERED: FLOMAX PO STA (06:54)
== END 2017-01-07 07:07 | disposition home or self-care (01) ==
LOC: ED 05:13
DX: N20.1 Calculus of ureter (principal); E11.9 Type 2 diabetes mellitus without complications; E78.5 Hyperlipidemia, unspecified; I25.810 Atherosclerosis of coronary artery bypass graft(s) without angina pectoris; I10 Essential (primary) hypertension; Z79.899 Other long term (current) drug therapy
CPT/HCPCS: 36415; 80053; 81001; 82150; 83690; 85025; 85651; 96372; 99283

== ENCOUNTER 2017-01-29 09:40 | Outpatient (RCR) ==
[2017-01-29 10:04] VITALS: BP 106/52; TEMP 97.9
== END 2017-02-04 ==
LOC: CAR.REHAB 09:40
PROVIDERS: ATTEND Internal Medicine
DX: I21.3 ST elevation (STEMI) myocardial infarction of unspecified site (principal); Z95.1 Presence of aortocoronary bypass graft

== ENCOUNTER 2017-02-05 12:26 | Outpatient (RCR) ==
[2017-03-07 10:49] VITALS: BP 112/62
== END 2017-03-07 ==
LOC: CAR.REHAB 12:26
PROVIDERS: ATTEND Internal Medicine
DX: Z95.1 Presence of aortocoronary bypass graft (principal); I21.3 ST elevation (STEMI) myocardial infarction of unspecified site
CPT/HCPCS: 93798

== ENCOUNTER 2017-03-08 11:05 | Outpatient (RCR) ==
[2017-04-06 11:03] VITALS: BP 118/52
== END 2017-04-06 ==
LOC: CAR.REHAB 11:05
PROVIDERS: ATTEND Internal Medicine
DX: I21.3 ST elevation (STEMI) myocardial infarction of unspecified site (principal); Z95.1 Presence of aortocoronary bypass graft
CPT/HCPCS: 93798

== ENCOUNTER 2017-03-15 09:13 | Outpatient (CLI) | payer OTHER ==
[2017-03-15 14:23] LABS: BILIRUBIN,URINE Negative (NEGATIVE); KETONES,URINE Negative (NEGATIVE); LEUKOCYTE ESTERASE ,URINE Negative (NEGATIVE); NITRITE,URINE Negative (NEGATIVE); PH,URINE 5.5 (5-9); PROTEIN,URINE Negative (NEGATIVE); URINE, BLOOD Negative (NEGATIVE)
[2017-03-15 14:25] LABS: BASOPHILS % (AUTO) 0.6 % (0.0-3.0); EOSINOPHILS # (AUTO) 0.2 K/ul (0.0-0.7); EOSINOPHILS % (AUTO) 2.4 % (0.0-7.0); HEMATOCRIT 33.2 % (37.0-47.0); HEMOGLOBIN 10.4 g/dl (12.0-16.0); IMMATURE GRANULOCYTE % (AUTO) 0.2 % (0.0-5.0); LYMPHOCYTES # (AUTO) 1.4 K/uL (0.60-3.4); MEAN CORPUSCULAR HEMOGLOBIN 26.3 pg (27.0-31.0); MEAN CORPUSCULAR HGB CONC 31.3 (31.8-35.4); MEAN CORPUSCULAR VOLUME 83.8 fl (81.0-99.0); MONOCYTES # (AUTO) 0.5 K/uL (0.4-2.0); MONOCYTES % (AUTO) 7.5 (0-10); NEUTROPHILS # (AUTO) 4.5 K/ul (2.0-6.9); NEUTROPHILS % (AUTO) 68.3; PLATELET COUNT 211 10^3/uL (140-440); RED BLOOD COUNT 3.96 10^6/ul (4.20-5.40); WHITE BLOOD COUNT 6.56 K/ul (4.6-10.2)
[2017-03-15 14:29] LABS: ADD URINE MICROSCOPIC NO
[2017-03-15 14:36] LABS: ALBUMIN 3.8 g/dL (3.4-5.0); ALBUMIN/GLOBULIN RATIO 0.84; ANION GAP 11.8; BILIRUBIN,TOTAL 0.57 mg/dL (0.00-1.20); BUN/CREATININE RATIO 19.27; CALCIUM 10.5 mg/dL (8.2-10.2); CHOL/HDL RATIO 4.4 (4.5-5.5); CREATININE 0.83 mg/dL (0.60-1.30); PHOSPHORUS 3.2 mg/dL (2.8-4.1); POTASSIUM 3.8 mmol/L (3.5-5.10); TOTAL PROTEIN 8.3 g/dL (5.8-8.1)
== END 2017-03-15 09:14 | disposition home or self-care (01) ==
LOC: LAB 09:13
PROVIDERS: ATTEND General Practice
DX: E11.9 Type 2 diabetes mellitus without complications (principal); I10 Essential (primary) hypertension; I21.3 ST elevation (STEMI) myocardial infarction of unspecified site; N20.0 Calculus of kidney; Z79.899 Other long term (current) drug therapy
CPT/HCPCS: 36415; 80053; 80061; 81001; 83036; 84100; 85025

== ENCOUNTER 2017-04-09 07:01 | Outpatient (RCR) ==
[2017-05-07 10:59] VITALS: BP 122/58
== END 2017-05-07 ==
LOC: CAR.REHAB 07:01
PROVIDERS: ATTEND Internal Medicine
DX: I21.3 ST elevation (STEMI) myocardial infarction of unspecified site (principal); Z95.1 Presence of aortocoronary bypass graft
CPT/HCPCS: 93798

== ENCOUNTER 2017-04-23 15:58 | Outpatient (CLI) | END 2017-04-23 15:59 | disposition home or self-care (01) | LOC: LAB 15:58 | PROVIDERS: ATTEND General Practice | DX: J02.9 Acute pharyngitis, unspecified (principal) | CPT/HCPCS: 87651; 87880 ==

== ENCOUNTER 2017-05-08 08:07 | Outpatient (RCR) ==
[2017-06-06 10:47] VITALS: BP 116/58
== END 2017-06-07 ==
LOC: CAR.REHAB 08:07
PROVIDERS: ATTEND Internal Medicine
DX: Z95.1 Presence of aortocoronary bypass graft (principal); I25.2 Old myocardial infarction
CPT/HCPCS: 93798

== ENCOUNTER 2017-05-22 15:41 | Outpatient (CLI) | payer OTHER ==
[2017-05-22 15:56] LABS: BASOPHILS % (AUTO) 0.6 % (0.0-3.0); EOSINOPHILS # (AUTO) 0.2 K/ul (0.0-0.7); EOSINOPHILS % (AUTO) 2.4 % (0.0-7.0); HEMATOCRIT 31.9 % (37.0-47.0); HEMOGLOBIN 10.2 g/dl (12.0-16.0); IMMATURE GRANULOCYTE % (AUTO) 0.2 % (0.0-5.0); LYMPHOCYTES # (AUTO) 1.9 K/uL (0.60-3.4); MEAN CORPUSCULAR HEMOGLOBIN 25.6 pg (27.0-31.0); MEAN CORPUSCULAR VOLUME 80.2 fl (81.0-99.0); MONOCYTES # (AUTO) 0.4 K/uL (0.4-2.0); MONOCYTES % (AUTO) 6.5 (0-10); NEUTROPHILS # (AUTO) 4.1 K/ul (2.0-6.9); NEUTROPHILS % (AUTO) 62.3; PLATELET COUNT 179 10^3/uL (140-440); RED BLOOD COUNT 3.98 10^6/ul (4.20-5.40); WHITE BLOOD COUNT 6.61 K/ul (4.6-10.2)
[2017-05-22 15:59] LABS: BILIRUBIN,URINE Negative (NEGATIVE); KETONES,URINE Negative (NEGATIVE); LEUKOCYTE ESTERASE ,URINE Negative (NEGATIVE); NITRITE,URINE Negative (NEGATIVE); PH,URINE 5.5 (5-9); PROTEIN,URINE Negative (NEGATIVE); URINE, BLOOD Negative (NEGATIVE)
[2017-05-22 16:04] LABS: ADD URINE MICROSCOPIC NO
[2017-05-22 16:13] LABS: ALBUMIN 3.6 g/dL (3.4-5.0); ALBUMIN/GLOBULIN RATIO 0.82; ANION GAP 14.1; BILIRUBIN,TOTAL 0.44 mg/dL (0.00-1.20); BUN/CREATININE RATIO 16.86; CHOL/HDL RATIO 4.3 (4.5-5.5); CREATININE 0.83 mg/dL (0.60-1.30); POTASSIUM 4.1 mmol/L (3.5-5.10)
--- NOTE | 2017-05-22 16:16 | CT ---
EXAM: CT chest without contrast HISTORY: Productive cough for multiple months COMPARISON: Multiple prior chest x-rays most recent 01/01/2017 TECHNIQUE: Serial axial images of the chest were obtained from the lung apices to the upper abdomen without contrast. These were viewed in multiple planes. FINDINGS: The thyroid is normal. Sternotomy wires are in place. The visualized vessels demonstrat e mild atherosclerotic disease without aneurysm or stenosis. The heart is normal in size without pe ricardial effusion. There are calcifications of the coronary arteries. There are no pathologically enlarged mediastinal or hilar lymph nodes. There is no pneumothorax or pleural effusion. There is no consolidation, nodule or mass. The airway s are patent. There is no abnormal ground-glass. The soft tissues in the upper abdomen are unremarkable. There is mild scattered degenerative diseas e of the spine. IMPRESSION: 1. No acute cardiopulmonary process or abnormality to account for patient's symptoms. 2. Changes consistent with previous cardiothoracic surgery.
== END 2017-05-22 15:42 | disposition home or self-care (01) ==
LOC: RAD 15:41
PROVIDERS: ATTEND General Practice
DX: I10 Essential (primary) hypertension (principal); Z79.899 Other long term (current) drug therapy; R06.02 Shortness of breath; R05 Cough; E11.9 Type 2 diabetes mellitus without complications
CPT/HCPCS: 36415; 80053; 80061; 81001; 83036; 83880; 85025

== ENCOUNTER 2017-06-08 07:28 | Outpatient (RCR) ==
[2017-06-08 11:29] VITALS: BP 126/58
== END 2017-06-13 12:29 | disposition home or self-care (01) ==
LOC: CAR.REHAB 07:28
PROVIDERS: ATTEND Internal Medicine
DX: Z95.1 Presence of aortocoronary bypass graft (principal); I25.2 Old myocardial infarction
CPT/HCPCS: 93798

== ENCOUNTER 2017-11-05 08:56 | Outpatient (CLI) ==
--- NOTE | 2017-11-05 09:54 | US ---
EXAM: Right upper quadrant abdominal ultrasound. History: Liver cirrhosis. Comparison: CT abdomen pelvis 01/07/2017 Technique: Multiple sonographic images through the abdomen were obtained. Color duplex Doppler was used to interrogate vascular flow. Findings: Nodular cirrhotic liver. No focal liver lesions identified sonographically. No abdominal ascites. Visualized pancreas demonstrates no gross abnormality. No shadowing gallstones. Gallbladd er wall is not thickened. Common bile duct measures 0.4 cm in caliber. Limited visualization of the right kidney demonstrates no evidence for hydronephrosis. There is antegrade flow within the main p ortal vein. Impression: Cirrhotic liver. No focal liver lesions identified sonographically.
== END 2017-11-05 08:57 | disposition home or self-care (01) ==
LOC: RAD 08:56
PROVIDERS: ATTEND Nurse Practitioner Family
DX: K74.69 Other cirrhosis of liver (principal)

== ENCOUNTER 2017-11-16 13:28 | Emergency (ER) ==
[2017-11-16 13:28] VITALS: BMI 34.3
[2017-11-16 13:37] VITALS: BP 126/71; TEMP 98.7
--- NOTE | 2017-11-16 14:34 | DI ---
EXAM: Two views of the chest. History: Cough. Comparison: Chest radiograph 12/29/2016, chest CT 05/22/2017 Findings: Heart size is upper limits of normal. Sternotomy wires. No focal consolidation. No appr eciable pleural fluid and no pneumothorax. No acute osseous abnormalities. Impression: No acute cardiopulmonary process.
--- NOTE | 2017-11-16 15:35 | ED.PDOC ---
General ED Provider: Dr. GREYSON JIMENEZ Chief Complaint: Non-specific Complaint Stated Complaint: CHEST PAIN Time Seen by Physician: 13:30 (PT IS REPORTING JAW PAIN WELL X 5 DAYS RATED 8 /10 ) Mode of Arrival: Walk-In Information Source: Patient Exam Limitations: No limitations Primary Care Provider: TRUPTI GILBERT Referred to ED by: Other (TOOK 1 81 MG ASPRIN TODAY) Nursing and Triage Documentation Reviewed and Agree: Yes Reviewed sepsis parameters & appropriate labs ordered?: Yes System Inflammatory Response Syndrome: Not Applicable Sepsis Protocol: For patient's 13 years and over: Temp is 96.8 and below OR 101 and greater Pulse >90 BPM Resp >20/minute Acutely Altered Mental Status Are patient's symptoms suggestive of a new infection, such as: -Pneumonia -Skin, Soft Tissue -Endocarditis -UTI -Bone, Joint Infection -Implantable Device -Acute Abdominal Infection -Wound Infection -Meningitis -Blood Stream Catheter Infection -Unknown System Inflammatory Response Syndrome: Not Applicable Cardiovascular Complaint Exam - Chest Pain Complaint/Exam Onset: Gradual Duration: 5 DAYS Symptoms Are: Still present Timing: Intermittent Length of Chest Pain Episodes: ALL DAY DULL BUT MAINLY HAS RIGHT SIDED JAW PAIN NO TRAUMA Initial Severity: Moderate Current Severity: Mild Location: Reports: Discrete, Midsternal Pain Radiates: Reports: Jaw (PAIN MORE THAN CHEST PAIN) Character: Reports: Dull Aggravating: Reports: None Alleviating: Reports: None Associated Signs and Symptoms: Denies: Diaphoresis, Nausea, Vomiting, Fever, Palpitations, Cough, Hemoptysis, Back pain, Abdominal pain, Dizziness, Short of air, Calf pain, Calf swelling Related History: Reports: Similar episode Related Surgical History: Reports: None History of Healthcare-Acquired Pneumonia: Reports: No AMI/ACS Risk Factors: Reports: Myocardial Infarction, Sedentary, Diabetes, Obesity, Hypertension, Dyslipidemia TAD Risk Factors: Reports: Hypertension Pulmonary Embolism Risk Factors: Reports: None Prior Care for this Complaint: No Recent Stress Test: No Recent Echo/LV Function: No JVD Present: No Subcutaneous Emphysema Present: No Diminshed Breath Sounds: No Reproducible Chest Wall Pain: No Bilateral Pulses Present: No If Risk Factors for AMI/ACS Consider: EKG, Cardiac Enzymes Differential Diagnoses: ACS, Unstable Angina Quality Indicator For Non-Traumatic Chest Pain/Syncope: EKG Performed Review of Systems - Review Of Systems Constitutional: Reports: No symptoms Eyes: Reports: No symptoms Ears, Nose, Mouth, Throat: Reports: No symptoms Respiratory: Reports: Cough Cardiac: Reports: Chest pain GI: Reports: No symptoms : Reports: No symptoms Musculoskeletal: Reports: No symptoms Skin: Reports: No symptoms Neurological: Reports: No symptoms Endocrine: Reports: No symptoms Hematologic/Lymphatic: Reports: No symptoms All Other Systems: Reviewed and Negative Past Medical History - Past Medical History Previously Healthy: No Endocrine: Reports: DM 2, Dyslipidemia Cardiovascular: Reports: CAD, Hypertension Respiratory: Reports: None Hematological: Reports: None Gastrointestinal: Reports: None Genitourinary: Reports: None Neuro/Psych: Reports: None Musculoskeletal: Reports: None Cancer: Reports: None Last Menstrual Period: NA - Surgical History General Surgical History: Reports: CABG, Unknown (colon surgery for diverticular disease ) - Family History Family History: Reports: Unknown - Social History Smoking Status: Never smoker Hx Substance Use: No Alcohol Screening: None Physical Exam - Physical Exam Appearance: Well-appearing, No pain distress, Well-nourished Eyes: RENATA, EOMI, Conjunctiva clear ENT: Ears normal, Nose normal, Oropharynx normal Respiratory: Airway patent, Breath sounds clear, Breath sounds equal, Respirations nonlabored Cardiovascular: RRR, Pulses normal, No rub, No murmur GI/: Soft, Nontender, No masses, Bowel sounds normal, No Organomegaly Musculoskeletal: Normal strength, ROM intact, No edema, No calf tenderness Skin: Warm, Dry, Normal color Neurological: Sensation intact, Motor intact, Reflexes intact, Cranial nerves intact, Alert, Oriented Psychiatric: Affect appropriate, Mood appropriate Interpretation - Radiology Interpretation Radiology Interpretation By: Radiologist Radiology Results: No 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 Rate: Normal Rhythm: Sinus (T[place] CARROLL ON THE avl on second ekg t inversion in the inf leads noted) - EKG Interpretation Rate: Normal Rhythm: Sinus Physician Notification - Case Discussed Physician Notified: KIRILL ALEXANDRA Time of Notification: 16:14 Critical Care Note - Critical Care Note Total Time (mins): 0 Course - Course Hematology/Chemistry: 11/16/17 14:00 11/16/17 14:00 Orders, Labs, Meds: Lab Review 11/16/17 11/16/17 11/16/17 14:00 14:00 14:00 WBC 6.95 RBC 3.88 L Hgb 9.3 L Hct 30.4 L MCV 78.4 L MCH 24.0 L MCHC 30.6 L RDW Coeff of Tawanna 16.3 H Plt Count 183 Immature Gran % (Auto) 0.3 Neut % (Auto) 61.3 Lymph % (Auto) 27.2 [place] % (Auto) 8.3 Eos % (Auto) 2.3 Baso % (Auto) 0.6 Immature Gran # (Auto) 0.0 Neut # 4.3 Lymph # 1.9 [place] # 0.6 Eos # 0.2 Baso # 0.0 D-Dimer (Manual) Sodium 140 Potassium 4.2 Chloride 106 Carbon Dioxide 27 Anion Gap 11.2 BUN 16 Creatinine 0.77 Estimated GFR (MDRD) 73.00 BUN/Creatinine Ratio 20.77 Glucose 122 H Calcium 9.9 Total Bilirubin 0.5 AST 24 ALT 21 Alkaline Phosphatase 94 Total Creatine Kinase 43 Troponin I Total Protein 7.6 Albumin 3.4 Globulin 4.2 Albumin/Globulin Ratio 0.81 11/16/17 11/16/17 14:00 14:00 WBC RBC Hgb Hct MCV MCH MCHC RDW Coeff of Tawanna Plt Count Immature Gran % (Auto) Neut % (Auto) Lymph % (Auto) [place] % (Auto) Eos % (Auto) Baso % (Auto) Immature Gran # (Auto) Neut # Lymph # [place] # Eos # Baso # D-Dimer (Manual) 362.00 Sodium Potassium Chloride Carbon Dioxide Anion Gap BUN Creatinine Estimated GFR (MDRD) BUN/Creatinine Ratio Glucose Calcium Total Bilirubin AST ALT Alkaline Phosphatase Total Creatine Kinase Troponin I < 0.0100 Total Protein Albumin Globulin Albumin/Globulin Ratio Orders Category Date Time Status EKG-(ED ONLY) Stat CARDIO 11/16/17 13:42 Completed EKG-(ED ONLY) Stat CARDIO 11/16/17 14:35 Completed ED IV/MEDIPORT/POWERPORT .ONCE EMERGENCY 11/16/17 15:41 Active CBC W/ AUTO DIFF Stat LAB 11/16/17 14:00 Completed COMPREHENSIVE METABOLIC PANEL Stat LAB 11/16/17 14:00 Completed CREATINE KINASE Stat LAB 11/16/17 14:00 Completed D-DIMER Stat LAB 11/16/17 14:00 Completed TROPONIN I Stat LAB 11/16/17 14:00 Completed 0.9 % Sodium Chloride [Saline Flush] MEDS 11/16/17 15:41 Active 1 syr IVF PRN PRN Aspirin [Aspirin Chewable] MEDS 11/16/17 15:40 Discontinued 243 mg PO ONCE STA CHEST, 2 VIEWS PA & LAT Stat RADS 11/16/17 13:42 Completed Medications Generic Name Dose Route Start Last Admin Trade Name Freq PRN Reason Stop Dose Admin Sodium Chloride 1 syr 11/16/17 15:41 Saline Flush IVF PRN PRN To flush IV Discontinued Medications Generic Name Dose Route Start Last Admin Trade Name Freq PRN Reason Stop Dose Admin Aspirin 243 mg 11/16/17 15:40 11/16/17 15:53 Aspirin Chewable PO 11/16/17 15:41 243 mg ONCE STA Administration Vital Signs: Temp Pulse Resp BP Pulse Ox 11/16/17 13:31 98.7 F 67 16 126/71 97 DRAGAN Risk Score DRAGAN Risk Score: Risk Score Odds of by 30D 0 0.1 (0.1-0.2) 1 0.3 (0.2-0.3) 2 0.4 (0.3-0.5) 3 0.7 (0.6-0.9) 4 1.2 (1.0-1.5) 5 2.2 (1.9-2.6) 6 3.0 (2.5-3.6) 7 4.8 (3.8-6.1) Departure - Departure Time of Disposition: 16:20 (KIRILL ALEXANDRA ACCEPTED PT WHILE AT [facility] PT STABLE) Disposition: TSF SHORT-TRM HOSP Discharge Problem: Angina at rest Anemia Qualifiers: Anemia type: unspecified type Qualified Code(s): D64.9 - Anemia, unspecified Instructions: Angina (ED), Chest Pain (ED) Condition: Good Pt referred to PMD for follow-up: Yes IPMP verified?: No Additional Instructions: Please call your Family Physician as soon as possible to schedule a follow-up appointment. Allergies/Adverse Reactions: Allergies hydromorphone HCl [From Dilaudid] Allergy (Unverified 11/16/17 13:30) Flushed and very nauseated, dizzy. Penicillins Allergy (Unverified 11/16/17 13:30) Sulfa (Sulfonamide Antibiotics) Allergy (Unverified 11/16/17 13:30) TAPE Adverse Reaction (Uncoded 11/16/17 13:30) Home Medications: Ambulatory Orders Aspirin [Aspir 81] 81 mg PO DAILY 10/26/15 Loratadine [Allergy Relief] 10 mg PO BEDTIME 08/02/15 Insulin Lispro [Humalog Kwikpen] 100 unit SQ TIDWM #1 insuln.pen 10/30/16 Pantoprazole Sodium [Protonix] 40 mg PO QDAC #30 tablet. 10/30/16 Calcium Carbonate/Vitamin D3 [Calcium 600-Vit D3 800 Tablet] 600 - 800 mg PO DAILY 01/07/17 Ferrous Sulfate 325 mg PO DAILY 01/07/17 Isosorbide Mononitrate [Isosorbide Mononitrate ER] 60 mg PO DAILY 01/07/17 Disposition Discussed With: Patient
[2017-11-16] MEDS ORDERED: ASPIRIN CHEWABLE PO STA (15:40)
== END 2017-11-16 16:50 | disposition short-term general hospital (02) ==
LOC: ED 13:28
DX: I20.9 Angina pectoris, unspecified (principal); I11.9 Hypertensive heart disease without heart failure; D64.9 Anemia, unspecified; E78.5 Hyperlipidemia, unspecified; I25.810 Atherosclerosis of coronary artery bypass graft(s) without angina pectoris; E11.9 Type 2 diabetes mellitus without complications; I25.2 Old myocardial infarction; E66.9 Obesity, unspecified; R05 Cough; Z79.899 Other long term (current) drug therapy; R68.84 Jaw pain
CPT/HCPCS: 36415; 80053; 82550; 84484; 85025; 85379; 93005; 93010; 99285

== ENCOUNTER 2018-01-01 14:09 | Outpatient (CLI) ==
--- NOTE | 2018-01-01 14:40 | DI ---
EXAM: CHEST FRONTAL AND LATERAL VIEWS HISTORY: Cough. COMPARISON: 11/16/2017 FINDINGS: Heart size is within normal limits. Sternotomy wires are noted. There appears to be at l east mild aortic atherosclerosis. No acute infiltrates are seen. No vascular congestion. There is n o consolidation, visible pleural fluid or pneumothorax. Bones reveal no acute fracture. IMPRESSION: No acute cardiopulmonary process.
== END 2018-01-01 14:10 | disposition home or self-care (01) ==
LOC: RAD 14:09
PROVIDERS: ATTEND General Practice
DX: R05 Cough (principal); J02.9 Acute pharyngitis, unspecified; M79.1 Myalgia; R51 Headache; R68.83 Chills (without fever)
CPT/HCPCS: 36415; 80053; 85025; 86710; 87651; 87804

== ENCOUNTER 2018-04-12 10:07 | Outpatient (CLI) | payer OTHER | END 2018-04-12 10:08 | disposition home or self-care (01) | LOC: FCC-LAB 10:07 | PROVIDERS: ATTEND General Practice | DX: E11.9 Type 2 diabetes mellitus without complications (principal); I10 Essential (primary) hypertension; K75.81 Nonalcoholic steatohepatitis (NASH); D50.9 Iron deficiency anemia, unspecified; Z79.899 Other long term (current) drug therapy | CPT/HCPCS: 36415; 80053; 80061; 81001; 83036; 85025 ==

== ENCOUNTER 2018-06-12 11:37 | Outpatient (CLI) | payer OTHER | END 2018-06-12 11:38 | disposition home or self-care (01) | LOC: FCC-LAB 11:37 | PROVIDERS: ATTEND General Practice | DX: E11.9 Type 2 diabetes mellitus without complications (principal); I10 Essential (primary) hypertension | CPT/HCPCS: 36415; 80069; 83036; 85008; 85025 ==

== ENCOUNTER 2019-01-08 20:16 | Emergency (ER) ==
[2019-01-08 20:21] VITALS: BMI 37.0
--- NOTE | 2019-01-08 21:33 | CT ---
EXAM: CT of the chest without contrast History: Fever and chest pain, left lateral chest pain. Comparison: Chest radiograph 06/17/2018, chest CT 05/22/2017 Technique: Multiplanar CT images through the thorax were obtained without the administration of IV c ontrast Findings: Heart size is normal. Coronary calcifications. No pericardial effusion. Dense mitral selin ve calcifications. No pathologically enlarged thoracic lymph nodes. No thoracic aortic aneurysm. N o consolidation. No pleural fluid and no pneumothorax. Sternotomy wires. No suspicious lung masses or lung nodules. Subsegmental atelectasis seen within the lower lungs. Within the visualized upper abdomen, nodular cirrhotic liver. No acute osseous abnormalities. Impression: 1. No acute intrathoracic process. 2. Coronary artery disease and valvular calcifications of the heart. 3. Cirrhotic liver
--- NOTE | 2019-01-08 22:00 | ED.PDOC ---
General ED Provider: Dr. KARLOS MEREDITH-ER Chief Complaint: Fever Stated Complaint: my chest hurts Time Seen by Physician: 21:58 Mode of Arrival: Walk-In Information Source: Patient Exam Limitations: No limitations Primary Care Provider: [facility] Nursing and Triage Documentation Reviewed and Agree: Yes Does patient meet sepsis criteria?: No System Inflammatory Response Syndrome: Not Applicable Sepsis Protocol: For patient's 13 years and over: Temp is 96.8 and below OR 101 and greater Pulse >90 BPM Resp >20/minute Acutely Altered Mental Status Are patient's symptoms suggestive of a new infection, such as: -Pneumonia -Skin, Soft Tissue -Endocarditis -UTI -Bone, Joint Infection -Implantable Device -Acute Abdominal Infection -Wound Infection -Meningitis -Blood Stream Catheter Infection -Unknown Cardiovascular Complaint Exam - Chest Pain Complaint/Exam Onset: Gradual Duration: several days Symptoms Are: Still present Initial Severity: Mild Current Severity: Mild Location: Reports: Discrete, Left anterior Character: Reports: Dull, Aching Alleviating: Reports: Oxygen Associated Signs and Symptoms: Denies: Diaphoresis, Nausea, Vomiting, Fever, Palpitations, Cough, Hemoptysis, Back pain, Abdominal pain, Dizziness, Short of air, Calf pain, Calf swelling Prior Care for this Complaint: No Recent Stress Test: No Recent Echo/LV Function: No JVD Present: No Subcutaneous Emphysema Present: No Reproducible Chest Wall Pain: Yes Bilateral Pulses Present: Yes Unequal Pulses Noted: No Differential Diagnoses: Acute ME, ACS Quality Indicator For Non-Traumatic Chest Pain/Syncope: EKG Performed Review of Systems - Review Of Systems Constitutional: Reports: Fever Eyes: Reports: No symptoms Ears, Nose, Mouth, Throat: Reports: No symptoms Respiratory: Reports: No symptoms Cardiac: Reports: Chest pain GI: Reports: No symptoms : Reports: No symptoms Musculoskeletal: Reports: No symptoms Skin: Reports: No symptoms Neurological: Reports: No symptoms Endocrine: Reports: No symptoms Hematologic/Lymphatic: Reports: No symptoms All Other Systems: Reviewed and Negative Past Medical History - Past Medical History Previously Healthy: No Endocrine: Reports: DM 2, Dyslipidemia Cardiovascular: Reports: CAD, Hypertension Respiratory: Reports: None Hematological: Reports: None Gastrointestinal: Reports: None Genitourinary: Reports: None Neuro/Psych: Reports: None Musculoskeletal: Reports: None Cancer: Reports: None Last Menstrual Period: none - Surgical History General Surgical History: Reports: CABG, Unknown (colon surgery for diverticular disease ) - Family History Family History: Reports: Unknown - Social History Smoking Status: Never smoker Hx Substance Use: No Alcohol Screening: None Physical Exam - Physical Exam Appearance: Well-appearing, No pain distress, Well-nourished Pain Distress: Mild Eyes: RENATA ENT: Ears normal, Nose normal, Oropharynx normal Neck: Supple Respiratory: Airway patent, Breath sounds clear, Breath sounds equal, Respirations nonlabored Cardiovascular: RRR, Pulses normal, No rub, No murmur GI/: Soft, Nontender, No masses, Bowel sounds normal, No Organomegaly Musculoskeletal: Normal strength Skin: Warm, Dry, Normal color Neurological: Sensation intact, Motor intact, Reflexes intact, Cranial nerves intact, Alert, Oriented Psychiatric: Affect appropriate, Mood appropriate Interpretation - Radiology Interpretation Radiology Interpretation By: Radiologist Radiology Results: Negative Exam Interpreted: CT Scan - EKG Interpretation Time of EKG #1: 21:59 Rate: Normal Rhythm: Sinus Ectopy: None Sutton: NL ST Segment: Normal Interpretation: nsr Critical Care Note - Critical Care Note Total Time (mins): 0 Course - Course Hematology/Chemistry: 01/08/19 20:23 01/08/19 20:23 Orders, Labs, Meds: Lab Review 01/08/19 01/08/19 01/08/19 20:23 20:23 20:38 WBC 10.40 H RBC 3.78 L Hgb 8.8 L Hct 29.2 L MCV 77.2 L MCH 23.3 L MCHC 30.1 L RDW Coeff of Tawanna 17.3 H Plt Count 192 Immature Gran % (Auto) 0.3 Neut % (Auto) 75.5 Lymph % (Auto) 14.5 [place] % (Auto) 7.8 Eos % (Auto) 1.6 Baso % (Auto) 0.3 Immature Gran # (Auto) 0.0 Neut # (Auto) 7.9 H Lymph # (Auto) 1.5 [place] # (Auto) 0.8 Eos # (Auto) 0.2 Baso # (Auto) 0.0 ESR 54 H Sodium 137.2 Potassium 4.23 Chloride 104.1 Carbon Dioxide 23.4 Anion Gap 13.93 BUN 15.6 Creatinine 0.66 Estimated GFR (MDRD) 87.00 BUN/Creatinine Ratio 23.63 Glucose 186.9 H Lactic Acid Calcium 9.71 Total Bilirubin 0.50 AST 37.0 H ALT 23.1 Alkaline Phosphatase 114.3 Total Creatine Kinase Troponin I Total Protein 7.88 Albumin 4.42 Globulin 3.46 Albumin/Globulin Ratio 1.27 Procalcitonin Urine Color Urine Clarity Urine pH Ur Specific [place] Urine Protein Urine Glucose (UA) Urine Ketones Urine Blood Urine Nitrite Urine Bilirubin Urine Urobilinogen Ur Leukocyte Esterase Urine Microscopic WBC Ur Squamous Epith Cells Ur Transition Epith Cell Hyaline Casts Influ A Molecular Assay Negative by naat Influ B Molecular Assay Negative by naat 01/08/19 01/08/19 01/08/19 20:43 20:43 20:43 WBC RBC Hgb Hct MCV MCH MCHC RDW Coeff of Tawanna Plt Count Immature Gran % (Auto) Neut % (Auto) Lymph % (Auto) [place] % (Auto) Eos % (Auto) Baso % (Auto) Immature Gran # (Auto) Neut # (Auto) Lymph # (Auto) [place] # (Auto) Eos # (Auto) Baso # (Auto) ESR Sodium Potassium Chloride Carbon Dioxide Anion Gap BUN Creatinine Estimated GFR (MDRD) BUN/Creatinine Ratio Glucose Lactic Acid 1.40 Calcium Total Bilirubin AST ALT Alkaline Phosphatase Total Creatine Kinase 52.1 Troponin I 0.335 H Total Protein Albumin Globulin Albumin/Globulin Ratio Procalcitonin 0.13 Urine Color Urine Clarity Urine pH Ur Specific [place] Urine Protein Urine Glucose (UA) Urine Ketones Urine Blood Urine Nitrite Urine Bilirubin Urine Urobilinogen Ur Leukocyte Esterase Urine Microscopic WBC Ur Squamous Epith Cells Ur Transition Epith Cell Hyaline Casts Influ A Molecular Assay Influ B Molecular Assay 01/08/19 20:54 WBC RBC Hgb Hct MCV MCH MCHC RDW Coeff of Tawanna Plt Count Immature Gran % (Auto) Neut % (Auto) Lymph % (Auto) [place] % (Auto) Eos % (Auto) Baso % (Auto) Immature Gran # (Auto) Neut # (Auto) Lymph # (Auto) [place] # (Auto) Eos # (Auto) Baso # (Auto) ESR Sodium Potassium Chloride Carbon Dioxide Anion Gap BUN Creatinine Estimated GFR (MDRD) BUN/Creatinine Ratio Glucose Lactic Acid Calcium Total Bilirubin AST ALT Alkaline Phosphatase Total Creatine Kinase Troponin I Total Protein Albumin Globulin Albumin/Globulin Ratio Procalcitonin Urine Color Yellow Urine Clarity Clear Urine pH 6.5 Ur Specific [place] 1.010 Urine Protein Negative Urine Glucose (UA) Negative Urine Ketones Negative Urine Blood Negative Urine Nitrite Negative Urine Bilirubin Negative Urine Urobilinogen 0.2 Ur Leukocyte Esterase Trace Urine Microscopic WBC 2-5 Ur Squamous Epith Cells 5-10 Ur Transition Epith Cell 2-5 Hyaline Casts 0-2 Influ A Molecular Assay Influ B Molecular Assay Orders Category Date Time Status EKG-(ED ONLY) Stat CARDIO 01/08/19 20:26 Completed TRANSFER TO OUTSIDE FACILITY .TO [facility] ( CARE 01/08/19 22:01 Active ALEX RUBALCAVA) WRITE TRANSFER/SBAR NOTE ONCE CARE 01/08/19 22:01 Completed DISCHARGE ASSESSMENT ONCE DISCHARGE 01/08/19 22:01 Completed WRITE DISCHARGE NOTE ONCE DISCHARGE 01/08/19 22:01 Completed Distribution Center Associate [ED TOWING PILOT APPLIED] .ONCE EMERGENCY 01/08/19 20:31 Active ED IV/MEDIPORT/POWERPORT .ONCE EMERGENCY 01/08/19 20:26 Active BLOOD CULTURE (ED ONLY) Stat LAB 01/08/19 20:43 Received CBC W/ AUTO DIFF Stat LAB 01/08/19 20:23 Completed COMPREHENSIVE METABOLIC PANEL Stat LAB 01/08/19 20:23 Completed CREATINE KINASE Stat LAB 01/08/19 20:43 Completed ESR Stat LAB 01/08/19 20:23 Completed FLU A/B MOLECULAR Stat LAB 01/08/19 20:38 Completed LACTIC ACID Stat LAB 01/08/19 20:43 Completed MOLECULAR GROUP A STREP Stat LAB 01/08/19 20:38 Completed PROCALCITONIN Stat LAB 01/08/19 20:43 Completed TROPONIN I Stat LAB 01/08/19 20:43 Completed URINALYSIS C & S IF INDICATED Stat LAB 01/08/19 20:54 Completed 0.9 % Sodium Chloride [Saline Flush] MEDS 01/08/19 20:26 Discontinued 1 syr IVF PRN PRN CT CHEST W/O CONTRAST Stat RADS 01/08/19 20:28 Completed Medications Discontinued Medications Generic Name Dose Route Start Last Admin Trade Name Freq PRN Reason Stop Dose Admin Sodium Chloride 1 syr 01/08/19 20:26 Saline Flush IVF PRN PRN To flush IV Vital Signs: Temp Pulse Resp BP Pulse Ox 01/08/19 22:50 100.9 F H 96 H 24 137/69 99 01/08/19 22:14 98.9 F 95 H 18 111/66 99 01/08/19 20:18 101.6 F H 104 H 20 166/74 H 96 DRAGAN Risk Score DRAGAN Risk Score: Risk Score Odds of by 30D 0 0.1 (0.1-0.2) 1 0.3 (0.2-0.3) 2 0.4 (0.3-0.5) 3 0.7 (0.6-0.9) 4 1.2 (1.0-1.5) 5 2.2 (1.9-2.6) 6 3.0 (2.5-3.6) 7 4.8 (3.8-6.1) Departure - Departure Time of Disposition: 22:00 Disposition: TSF SHORT-TRM HOSP Discharge Problem: Elevated troponin Chest pain Qualifiers: Chest pain type: other chest pain Qualified Code(s): R07.89 - Other chest pain Instructions: Chest Pain (ED) Condition: Good Pt referred to PMD for follow-up: Yes IPMP verified?: No Allergies/Adverse Reactions: Allergies hydromorphone HCl [From Dilaudid] Allergy (Verified 01/08/19 20:21) Flushed and very nauseated, dizzy. iron Allergy (Verified 01/08/19 20:21) Penicillins Allergy (Verified 01/08/19 20:21) Sulfa (Sulfonamide Antibiotics) Allergy (Verified 01/08/19 20:21) TAPE Adverse Reaction (Uncoded 11/16/17 13:30) Home Medications: Ambulatory Orders Aspirin [Aspir 81] 81 mg PO DAILY 08/02/15 Loratadine [Allergy Relief] 10 mg PO BEDTIME 08/02/15 Calcium Carbonate/Vitamin D3 [Calcium 600-Vit D3 800 Tablet] 600 - 800 mg PO BID 01/07/17 Isosorbide Mononitrate [Isosorbide Mononitrate ER] 60 mg PO DAILY 01/07/17 Insulin Aspart [Novolog Flexpen] See Protocol SQ TID 01/08/19 Insulin Glargine,Hum.rec.anlog [Lantus] 40 unit SQ BEDTIME 01/08/19 Transfer Form Completed: Yes Disposition Discussed With: Patient, Family
[2019-01-08 22:51] VITALS: BP 137/69; TEMP 100.9
== END 2019-01-08 23:06 | disposition short-term general hospital (02) ==
LOC: ED 20:16
DX: R07.89 Other chest pain (principal); R79.89 Other specified abnormal findings of blood chemistry; R50.9 Fever, unspecified; E11.9 Type 2 diabetes mellitus without complications; E78.5 Hyperlipidemia, unspecified; I10 Essential (primary) hypertension; I25.810 Atherosclerosis of coronary artery bypass graft(s) without angina pectoris; Z79.4 Long term (current) use of insulin; R00.0 Tachycardia, unspecified
CPT/HCPCS: 36415; 80053; 81001; 82550; 83605; 84145; 84484; 85025; 85651; 87040; 87502; 87651; 93005; 93010; 99285

== ENCOUNTER 2019-01-08 23:16 | Outpatient (CLI) | payer OTHER ==
[2019-01-08 20:21] VITALS: BMI 37.0
== END 2019-01-08 23:35 | disposition short-term general hospital (02) ==
LOC: AMBL 23:16
PROVIDERS: ATTEND Family Medicine
DX: R07.9 Chest pain, unspecified (principal); R50.9 Fever, unspecified; R79.89 Other specified abnormal findings of blood chemistry; R00.0 Tachycardia, unspecified

== ENCOUNTER 2019-02-22 08:48 | Observation (INO) ==
[2019-02-22 09:29] VITALS: BMI 36.4
[2019-02-22] MEDS ORDERED: NON-FORMULARY MEDICATION (Nitroglycerin [Nitroglycerin] 0.4 MG) SL PRN (10:45)
[2019-02-22] MEDS ORDERED: INSULIN ASPART SQ PRN ×3 (10:56→17:27)
[2019-02-22] MEDS ORDERED: INSULIN ASPART SQ SCH (12:00)
--- NOTE | 2019-02-22 12:12 | DI ---
EXAM: Chest two views HISTORY: Shortness of air COMPARISON: 06/17/2018 TECHNIQUE: Two views of the chest were performed FINDINGS: Heart is enlarged, unchanged. Mediastinal contour unchanged. Median sternotomy wires. N o visible pneumothorax. Small left pleural effusion. Linear subsegmental atelectasis left mid lung. Possible mild pulmonary vascular congestion. IMPRESSION: Cardiomegaly with possible mild pulmonary vascular congestion. Small left pleural effus ion.
[2019-02-22] MEDS ORDERED: NON-FORMULARY MEDICATION (Pravastatin Sodium [Pravastatin Sodium] 40 MG) PO SCH (17:00)
[2019-02-22] MEDS ORDERED: INSULIN GLARGINE HUM REC ANLOG 40 UNIT SQ SCH (21:00)
[2019-02-22] MEDS ORDERED: NON-FORMULARY MEDICATION (Pravastatin Sodium [Pravachol] 40 MG) PO SCH (21:00)
[2019-02-22] MEDS ORDERED: NON-FORMULARY MEDICATION (Losartan Potassium [Cozaar] 50 MG) PO SCH (21:00)
[2019-02-22] MEDS: VITAMIN D3 PO SCH (21:48)
[2019-02-22] MEDS: CALCIUM CARBONATE PO SCH (21:48)
[2019-02-22] MEDS: [UNRECOGNIZED DRUG - OTHER] PO SCH (21:48)
[2019-02-22] MEDS: NON-FORMULARY MEDICATION (Metoprolol Tartrate [Metoprolol Tartrate] 50 MG) PO SCH (21:50)
[2019-02-22] MEDS: NON-FORMULARY MEDICATION (Apixaban [Eliquis] 5 MG) PO SCH (21:52)
[2019-02-23] MEDS ORDERED: NON-FORMULARY MEDICATION (Pantoprazole Sodium [Pantoprazole Sodium] 40 MG) PO SCH (06:30)
[2019-02-23] MEDS: NON-FORMULARY MEDICATION (Apixaban [Eliquis] 5 MG) PO SCH (08:15)
[2019-02-23] MEDS: VITAMIN D3 PO SCH (08:16)
[2019-02-23] MEDS: [UNRECOGNIZED DRUG - OTHER] PO SCH (08:16)
[2019-02-23] MEDS: CALCIUM CARBONATE PO SCH (08:16)
[2019-02-23] MEDS: NON-FORMULARY MEDICATION (Metoprolol Tartrate [Metoprolol Tartrate] 50 MG) PO SCH (08:17)
[2019-02-23] MEDS ORDERED: NON-FORMULARY MEDICATION (Ascorbate Calcium [Vitamin C] 500 MG) PO SCH (09:00)
[2019-02-23] MEDS ORDERED: ISOSORBIDE MONONITRATE 30 MG PO SCH (09:00)
[2019-02-23] MEDS ORDERED: NON-FORMULARY MEDICATION (Clopidogrel Bisulfate [Clopidogrel] 75 MG) PO SCH (09:00)
[2019-02-23 13:23] VITALS: BP 119/64; TEMP 97.8
[2019-02-23] MEDS ORDERED: NON-FORMULARY MEDICATION (Pravastatin Sodium [Pravachol] 40 MG) PO SCH (21:00)
--- NOTE | 2019-02-25 15:14 | HP ---
DATE OF SERVICE: 02/22/19 CHIEF COMPLAINT: Generalized weakness, legs not holding up very well, fatigue, shortness of breath on exertion. HISTORY OF PRESENT ILLNESS: The patient had been to the lighting technician last , three days ago, and did a blood test. The hemoglobin was noted to be 7.7 and the lighting technician office touch base with us yesterday at the clinic telling us about the low hemoglobin and hematocrit and they were somewhat concerned. This patient had been complaining of weakness and that her legs are not holding her up and concerned about falling and shortness of breath with just minimal exertion and extreme fatigue. She denies any chest pain. This patient had been to the lighting technician and had a cardiac catheterization and stent application. She also had congestive heart failure and was given a diuretic prior to that. Because of the patient's symptoms and low hemoglobin, the patient is admitted under observation for initial work-up and possibly blood transfusion. The patient denied any chest pain. PAST PERSONAL HISTORY: On 06/17/2018 the patient was admitted because of severe anemia, fatigue and chest pain. She was kept for a day 06/17/2018 and transferred on 06/18/2018 and transfused blood when her hemoglobin was 10.5 on discharge with a hematocrit of 34.2. 01/08/2019 because of chest pain. She also had edema of both lower extremities. She was given a diagnosis of atrial fibrillation. The new medications after that admission on 01/08/2019 consisted of Apixaban or Eliquis 5 mg twice a day, Plavix 75 mg daily, Digoxin 0.125 mg daily, Diltiazem 60 mg every 8 hours, Vitamin C 500 mg daily. The patient had a Stew scan done 12/25/2018 and there was no evidence of ischemia both exercise and rest. The patient on 02/07/2019 at [facility] had a left lower lobe pneumonia and was admitted to the hospital. CTA of chest done 02/07/2019 showed small to moderate left pleural effusion with compressive atelectasis. No pulmonary emboli. A previous coronary artery bypass graft, tonsillectomy, appendectomy, hysterectomy and colon resection secondary to diverticulitis and diverticular disease. Her last colonoscopy 2016. She also has osteoarthritis and hepatitis B positive with liver cirrhosis. The alpha fetoprotein measure was normal. FAMILY HISTORY: Brother of cancer, mother had congestive heart failure, as well as heart disease and diabetes. History of diabetes in the family both maternal and paternal sides. History of cerebral vascular accident in the family. SOCIAL HISTORY: The patient is and resides with her . All of the children are grown. She does not smoke, nor drink any alcoholic beverages. MEDICATIONS: Prior to this admission: Calcium 600 mg plus Vitamin D Isosorbide Mononitrate 60 mg reduced to 30 mg daily Nitroglycerin 0.4 mg prn SL times three, if no better go to the emergency room Pravastatin 40 mg daily Pantoprazole 40 mg daily Metoprolol Tartrate 50 mg twice a day Lantus 40 units subcutaneously at bedtime Eliquis 5 mg twice a day Plavix 75 mg daily Vitamin C 500 mg daily Losartan 25 mg, 50 mg at bedtime daily The patient's Cardizem was reduced from 60 to 30 and the Digoxin was discontinued to be resumed later. The Cardizem was discontinued completely. ALLERGIES: Hydromorphone, iron, Penicillin, Sulfa. REVIEW OF SYSTEMS: CONSTITUTIONAL: No fever, no chills, but extreme fatigue. 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 No syncopal episode, no seizure events. VISUAL: Denies any blurred vision, transient loss of vision or double vision. AUDITORY: The patient has hearing aid. She denies any tinnitus, pain or drainage. RESPIRATORY: Shortness of breath with minimal exertion. No hemoptysis. No significant cough. CARDIOVASCULAR: She denies any chest pain. She had a recent stent put in and this patient is on anticoagulant medication, plus antiplatelet aggregator. GASTROINTESTINAL: The patient had been experiencing nausea and some of the medications were discontinued hoping that this would relieve some of the nausea according to the lighting technician and helper. Most of the medications were discontinued because of the hypotension that this patient has. She denies any dysphagia or abdominal pain. No gross blood in the stool or in the urine. GENITOURINARY: The patient denies any pain or burning on urination or urgency or blood in the urine. MUSCULOSKELETAL: The patient does have some joint pain secondary to osteoarthritis. The patient's legs are markedly weak, but no pain. ENDOCRINE: The patient has diabetes mellitus with elevated BMI, but no polyuria or polydipsia. INTEGUMENT: Denies any rash, pruritus or ecchymosis. HEMATOLOGIC: The patient has severe anemia, but denies any prolonged bleeding or spontaneous bleeding. PSYCHIATRIC: Affect is normal and judgement is normal or good. PHYSICAL EXAMINATION: GENERAL: We have a 78 year old female admitted to the hosptial because of shortness of breath with exertion, extreme fatigue, severe anemia. The patient was seen by the lighting technician three days prior to this admission. We were advised about the low hemoglobin and hematocrit 02/21/2019. The patient was advised admission to the hospital because of the severe anemia, shortness of breath on exertion, extreme fatigue and nausea. The patient was alert, oriented, not dyspneic, nor tachypneic at rest and cooperative. She has no cyanosis. VITAL SIGNS: At 09:07 a.m. on 02/22/2019 showed a temperature 97.7, pulse 66, blood pressure left 136/61, respiratory rate 20, oxygen saturation 97 on room air. 5'4", 212 pounds and 4 ounces. HEAD: Unremarkable. Scalp with no active dermatitis. Face symmetrical and equal with no facial weakness. Some tenderness to palpation in the maxillary and frontal sinus areas, but not severe. There is no redness on the sides. EYES: Pupils equal/reactive to light about 3 mm in size and round. Conjunctivae pale. Sclerae not icteric. MOUTH: Unremarkable. THROAT: No inflammation, tumors or exudates. NECK: No masses. No bruit. No tenderness. No rigidity. CHEST: Symmetrical and equal with good expansion with no tenderness. LUNGS: Breath sounds are heard in both sides. No rales or wheezing. HEART: Audible and regular with good tones with a soft systolic ejection murmur , apical. ABDOMEN: Slightly protuberant, soft with no remarkable tenderness. No guarding. Bowel sounds are active. No masses palpable. No bruit. EXTERNAL GENITALIA: Not examined. PELVIC AND RECTAL: Not performed. LOWER EXTREMITIES: 1+ pitting edema on both legs. The posterior tibial on the right is palpable, but the rest are not. UPPER EXTREMITIES: Symmetrical and equal. ASSESSMENT: 1. SEVERE ANEMIA 2. FATIGUE SECONDARY PROBABLY TO #1 3. EXERTIONAL DYSPNEA PROBABLY SECONDARY TO #1 4. HISTORY OF CORONARY ARTERY DISEASE, STATUS POST BYPASS 5. RECENT CARDIAC CATHETERIZATION SHOWING CORONARY ARTERY STENOSIS TREATED WITH STENT 6. TYPE II DIABETES MELLITUS OR 1 ONE AND A HALF 7. ELEVATED BMI, PERSISTENT 8. PERIPHERAL ARTERIAL DISEASE, ABSENT RIGHT ANTERIOR TIBIAL LEFT ANTERIOR AND POSTERIOR TIBIALS 9. BILATERAL LEG EDEMA PROBABLY SECONDARY TO DEPENDENCY 10. HEPATITIS B, CHRONIC 11. LIVER CIRRHOSIS WITH NORMAL TOYA FETOPROTEIN. PLAN: 1. The patient will be continued on the same medication. 2. Labs were reviewed and she had a hemoglobin 7.2, hematocrit 25. BUN is elevated, so the numbers for the hemoglobin and hematocrit with hydration would probably be much lower. Coagulation profile is normal. Electrolytes normal. BUN 17.2, elevated, creatinine 0.66 and E GFR 87. Blood sugar 144. Total kinase normal. Troponin normal at less than 0.012. NT-Pro BNP borderline 671. 3. Probably will give a Lasix in the evening after the blood transfusion. We will transfuse 1 unit now and 1 unit tomorrow. We need to look at the records from Dr. Mcmahon. I certainly could not find it today as to whether she had a colonoscopy and endoscopy to find the source of the anemia. TIME SPENT: GREATER THAN 65 MINUTES MTDD
--- NOTE | 2019-02-26 13:27 | DS ---
DATE OF SERVICE: 02/23/19 PATIENT IDENTIFICATION: 78 year old female complaining of extreme fatigue and exertional dyspnea. The patient had seen her risk control manager last , three days prior to admission and their blood test did show severe anemia, 7.7. The patient was advised admission to observation plus blood transfusion because of the exertional dyspnea and fatigue. The patient on admission was alert, oriented times four, not dyspneic or tachypneic at rest. LUNGS: clear HEART: Normal sinus rhythm PUPILS: Conjunctivae palpebral markedly pale, sclerae icteric. ABDOMEN: Protuberant, soft with no remarkably tenderness. LOWER EXTREMITIES: She does have some 1+ pitting edema. VITALS SIGNS: Temperature 97.7, pulse 66, blood pressure 136/61, respiratory rate 20, oxygen saturation 97% at room air. 5'4, 212 pounds and 4.8 ounces. HOSPITAL COURSE: The patient's CBC showed normal WBC 7.2 on admission, Plt count 205,000, chemistries had some slight abnormalities but not clinically significant, BUN slightly elevated 17.2, blood sugar 144, GFR 87, CK 29.8, Troponin less than 0.012, NT Pro BNP 671, total protein normal. Urinalysis normal. Serum digoxin level 0.45 or subtherapeutic. The patient on the day of discharge after the second unit was finished had a hgb 9.5. The patient is alert, oriented times four, not dyspneic or tachypneic at rest and claimed to be feeling better. She had seen Dr. Mcmahon and since then had surgery to the hemorrhoid and no further bleeding done by Dr. Vigil. In spite of the fact that the patient had the hemorrhoid surgery which was blamed as the reason for the anemia and during that time the hgb was down to 6.2 and did received three units of transfusion. This patient had a recent stent deployed about a month ago and this patient is now on Eliquis as well as Plavix. No aspirin. Coagulation profile was normal. Chest x-ray done on admission showed cardiomegaly with possible mild pulmonary vascular congestion, small left pleural effusion. The patient just before discharge again was alert and ambulator with movement of all extremities. LUNGS: Clear to auscultation HEART: Audible and regular with good tones VITAL SIGNS: Temperature 97.8, pulse 77, blood pressure 119/64, respiratory rate 18 and oxygen saturation 95% at room air. The patient weighs 207 pounds and 10 ounces. She lost approximately 4.75 pounds. The patient had not been given a diuretic but had a good urine output probably accounting for the weight loss. The patient is advised to resume all her previous medications. I did advise them that I would get in touch with Dr. Mcmahon because of the recurrent anemia in spite of the surgery to the hemorrhoid. The patient always claims that it was her hemorrhoid that was the reason for the anemia. The patient's stool is brown in color and never had any blood or any dark stool at all during this period since the surgery to the hemorrhoids. It seems that the anemia is secondary to iron deficiency. Microcytic hypochromic. MCV 76.2, MCH 22. MCHC low 28.8 and RDW elevated 16.6. FINAL DIAGNOSES: 1. Severe Anemia, source undetermined microcytic hypochromic 2. Coronary artery disease, status post bypass 3. Recent chest pain with cardiac catheterization and stent deployment one month ago 4. Type 2 Diabetes Mellitus 5. Hypertension 6. GERD 7. Elevated BMI PROGNOSIS: Guarded TIME SPENT: GREATER THAN 30 MINUTES MTDD
== END 2019-02-23 17:13 | disposition home or self-care (01) ==
LOC: MEDSURG B 08:48
PROVIDERS: ADMIT General Practice; ATTEND General Practice
DX: D64.9 Anemia, unspecified (principal); I25.10 Atherosclerotic heart disease of native coronary artery without angina pectoris; E11.9 Type 2 diabetes mellitus without complications; I10 Essential (primary) hypertension; K21.9 Gastro-esophageal reflux disease without esophagitis; R53.83 Other fatigue; R06.00 Dyspnea, unspecified; I73.9 Peripheral vascular disease, unspecified; R60.0 Localized edema; K74.60 Unspecified cirrhosis of liver; B18.1 Chronic viral hepatitis B without delta-agent
CPT/HCPCS: 36415; 36430; 80053; 80162; 81001; 82550; 82962; 83880; 84484; 85008; 85014; 85018; 85025; 85610; 85730; 86850; 86900; 86922; 93005; 93010

== ENCOUNTER 2019-03-04 09:47 | Day surgery (SDC) ==
[2019-03-04 11:14] VITALS: TEMP 98.6
[2019-03-04] MEDS ORDERED: LIDOCAINE 1% 20 ML MDV ID STA (11:15)
[2019-03-04] MEDS ORDERED: LIDOCAINE HCL 2% LUER-JET ONE (12:00)
[2019-03-04] MEDS ORDERED: DIPRIVAN 20 ML VIAL IVP ONE (12:00)
[2019-03-04] MEDS ORDERED: VERSED ONE (12:00)
[2019-03-04] MEDS ORDERED: EPINEPHRINE 1 MG/10 ML SYRINGE IV STA (12:37)
[2019-03-05 10:33] VITALS: BP 124/68
--- NOTE | 2019-03-05 11:31 | OP ---
INDICATIONS FOR PROCEDURE: 78 year old female presents for endoscopy evaluation. She has a long history of chronic anemia. Recently her hgb dropped to 7.7 on 02/20. It had been as low as 7.6 on 01/02 and was 8.3 on 02/10. She was transfused two units of packed RBC by Dr. Malone and her hgb afterwards was 9.5. The patient had a stent placed at [facility] in December and has been on Plavix and Eliquis since then. She has moderate aortic stenosis. She presents today for endoscopy for evaluation of anemia. MEDICATIONS: SEE ANESTHESIA NOTES. PROCEDURE: ENDOSCOPY. BIOPSY. EPINEPHRINE INJECTION. REPORT: The risks, benefits, alternatives and limitations were discussed in detail with the patient. Informed consent was obtained. After adequate sedation was achieved, the video endoscope was introduced in the posterior pharynx and esophagus under direct vision and easily advanced down to the second portion of the duodenum. I then slowly withdrew. The duodenal mucosa appeared unremarkable in the bulb there was a small 6mm raised polyp. It appeared benign. I withdrew the scope back into the antrum. There is minimal erythema suggesting minimal portal hypertensive gastropathy. There was a small antral superficial nodule. The body appeared unremarkable. The scope was retroflexed to look at the cardia and fundus which was unremarkable. The scope was anteflexed and withdrawn back through the esophagus. In the distal 1/3 of the esophagus there was small 1+ varices. These were no bigger than 5mm in size. I advanced the scope back down the gastric lumen and to the duodenum bulb. I decision was made to obtain a small biopsy of the polyp even then she was on Plavix. It was decided to obtain the biopsy for histological review and treat with epinephrine injection to control bleeding. The biopsy was done and 1cc of epinephrine was injection into the base of the biopsy. I would estimate that there was less than 2ml of bleeding noted. This area was watched and no blood was coming into view with observation. There was no signs of bleeding. Therefore the duodenum was decompressed, the stomach decompressed and the scope withdrawn. The patient tolerated the procedure well with stable vital signs and pulse oximetry throughout. IMPRESSION: 1. Small distal esophageal varices 2. Small 6mm polyp in the bulb, biopsied as above 3. Small benign appearing antral nodule 4. Minima portal hypertensive gastropathy. 5. No obvious to account for her anemia but she does have a chronic history of anemia which maybe secondary done to underline liver disease and blood loss anemia. She is at increased risk for blood loss anemia with anticoagulation used. RECOMMENDATIONS: 1. Await pathology results. If the polyp is benign and adenomatous then I recommend polypectomy when she can come off Plavix. This have to wait 10 months due to recent stenting. 2. With her underline cirrhosis felt to be due to GIBSON, weight loss once again stressed 3. We will see her in the office in 6 months 4. She is not a candidate for colonoscopy examination secondary need for anticoagulation per cardiology recommendation 5. She will continue to followup with primary care regarding her anemia CC: Dr. Faisal JJ
== END 2019-03-04 13:15 | disposition home or self-care (01) ==
LOC: SURG 09:47
PROVIDERS: ATTEND Internal Medicine Gastroenterology
DX: D64.9 Anemia, unspecified (principal); I85.00 Esophageal varices without bleeding; K31.7 Polyp of stomach and duodenum; K76.6 Portal hypertension; K31.89 Other diseases of stomach and duodenum

== ENCOUNTER 2019-03-24 12:40 | Outpatient (CLI) | END 2019-03-24 12:41 | disposition home or self-care (01) | LOC: RHC-LAB 12:40 | PROVIDERS: ATTEND General Practice | DX: D50.9 Iron deficiency anemia, unspecified (principal); E11.9 Type 2 diabetes mellitus without complications; I10 Essential (primary) hypertension | CPT/HCPCS: 36415; 83037 ==

== ENCOUNTER 2019-06-16 08:53 | Outpatient (CLI) | payer OTHER | END 2019-06-16 08:54 | disposition home or self-care (01) | LOC: RHC-LAB 08:53 | PROVIDERS: ATTEND General Practice | DX: E11.9 Type 2 diabetes mellitus without complications (principal); I10 Essential (primary) hypertension; K21.9 Gastro-esophageal reflux disease without esophagitis; Z79.899 Other long term (current) drug therapy | CPT/HCPCS: 36415; 80053; 80061; 81001; 83036; 85025 ==

== ENCOUNTER 2025-04-30 11:59 | Inpatient (IN) ==
[2025-04-30] MEDS ORDERED: DUONEB NEB STA (12:17)
[2025-04-30] MEDS ORDERED: SOLU-MEDROL 125 MG IVP ONE (12:17)
--- NOTE | 2025-04-30 12:19 | ED.PDOC ---
General [facility] ED Provider: Dr. EVELIN PLUMMER MD Chief Complaint: Respiratory Complaint Stated Complaint: Patient is an 84-year-old female that reported to the emergency department for nausea and vomiting. Patient stated that this has been going on for the past day. Patient stated that she has also not been feeling well. Patient stated that a week ago she was discharged from the ER with a diagnosis of pneumonia and was treated with Levaquin and given albuterol treatments. Patient stated that since that time she just not felt well and now has started having nausea and vomiting. Patient stated that she has not been outside the country recently. Patient stated that she has not drink from any impure water sources. Patient denied being around any other sick contacts recently. Patient stated that she has had some chills and has felt feverish however she has not checked her temperature. Patient denies any other acute symptoms at the current time. Patient's vital signs are stable. Patient's GCS is 15. Patient is alert and oriented person, place, and time. Time Seen by Provider: 04/30/25 12:06 Mode of Arrival: Walk-In Information Source: Patient Exam Limitations: No limitations Primary Care Provider: JANNETH STACY MD Nursing and Triage Documentation Reviewed and Agree: Yes Opioid Naive vs. Tolerant What is Opioid Naive?: *Opioid Naive implies the patient is not already taking opioids or not chronically receiving opioids on a daily basis. *PRN dosing is not "usually" associated with tolerance. *Patients are at higher risk of over-sedation and aspiration. What is Opioid Tolerant?: *Opioid Tolerance implies less than the expected response to an opioid. *Acquired tolerance is defined by the patient taking 60mg of oral morphine daily (or equianalgesic dose of another opioid) for 1 week or more. *Often associated with chronic pain. *May take more than usual dose to achieve desired pain control. Review of Systems Review Of Systems Constitutional: Reports No symptoms Respiratory: Reports Shortness of Breath GI: Reports Nausea and Vomiting All Other Systems: Reviewed and Negative [facility] Medical History Myocardial infarction 12/29/16 I21.9 - Acute myocardial infarction, unspecified (ICD-10) Lumbar pain M54.5 - Low back pain (ICD-10) CAD (coronary artery disease) I25.10 - Atherosclerotic heart disease of [place] coronary artery without angina pectoris (ICD-10) Family History Mother , overdose of medication No problems noted. FATHER , in his sleep CHF (congestive heart failure) BROTHER , Cancer Lung cancer BROTHER , heart failure Cancer BROTHER , cancer and substance abuse Cancer Social History Smoking and tobacco status: Never smoker Passive smoking exposure: No Second hand smoke exposure: No Alcohol intake: never Counseling given: No Substance use type: does not use Counseling given: No Aye/moravian: NONE Agree to transfusion: Yes Adopted: No Caregiver/support person: No Foster care: No Household members: spouse Housing: house Marital status: M Lives independently: Yes Number of children: 3 Number of grandchildren: 3 Highest education level completed: high school graduate service: No Current occupational status: retired Current occupational exposures/hazards: No 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 Pets and animals: Yes (one old female dog) Leisure activites: other History of recent travel: No Sexually active: No Do you think of yourself as: straight/heterosexual Current gender identity: female Seatbelt use: always Drives intoxicated or rides with intoxicated car pick up driver: No Current diet type/program: regular Well-balanced diet: about half the time Caffeine: Yes Eating out: 1-3 times/week Reads food labels: sometimes During the past year weight has: remained stable Water heater temperature set < 120 degrees: Yes Working smoke detector in home: Yes Fire extinguisher in home: Yes Carbon monoxide detector in home: Yes Firearms in home: Yes What type of physical activity do you participate in?: none Physical activity functional status: independent ambulation How many days of moderate to strenuous exercise, like a brisk walk, did you do in the last 7 days: 0 Surgical History H/O: hemorrhoidectomy Z98.890 - Other specified postprocedural states (ICD-10) H/O colonoscopy with polypectomy Z98.890 - Other specified postprocedural states (ICD-10) Z86.010 - Personal history of colonic polyps (ICD-10) 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 - Presence of xenogenic heart valve (ICD-10) H/O coronary artery bypass surgery Z95.1 - Presence of aortocoronary bypass graft (ICD-10) H/O colectomy Z90.49 - Acquired absence of other specified parts of digestive tract (ICD- 10) History of cardiac cath Z98.890 - Other specified postprocedural states (ICD-10) endoscopy (03/04/19) Status post tonsillectomy Z90.89 - Acquired absence of other organs (ICD-10) Status post hysterectomy Z90.710 - Acquired absence of both cervix and uterus (ICD-10) Status post appendectomy Z90.49 - Acquired absence of other specified parts of digestive tract (ICD- 10) Female Reproductive History Menstrual Age of Menarche: 14 Hx Hysterectomy: Yes (roughly > 30+ years ago) Hx Tubal Ligation: No Physical Exam Physical Exam Appearance: Reports Ill-appearing and Obese Ill-appearing: None Eyes: Reports RENATA, EOMI and Conjunctiva clear ENT: Reports Nose normal and Oropharynx normal Neck: Supple Respiratory: Reports Airway patent, Breath sounds clear, Breath sounds equal and Respirations nonlabored Cardiovascular: Reports RRR, Pulses normal, No rub and No murmur GI/: Reports Soft, Nontender, No masses and Bowel sounds normal Musculoskeletal: Reports Normal strength, ROM intact and No edema Skin: Reports Warm and Normal color Neurological: Reports Sensation intact, Motor intact, Alert and Oriented Psychiatric: Reports Affect appropriate Physician Progress Note Physician Progress Note: Patient is an 84-year-old female that reported to the emergency department for nausea and vomiting. Patient stated that this has been going on for the past day. Patient stated that she has also not been feeling well. Patient stated that a week ago she was discharged from the ER with a diagnosis of pneumonia and was treated with Levaquin and given albuterol treatments. Patient stated that since that time she just not felt well and now has started having nausea and vomiting. Patient stated that she has not been outside the country recently. Patient stated that she has not drink from any impure water sources. Patient denied being around any other sick contacts recently. Patient stated that she has had some chills and has felt feverish however she has not checked her temperature. Patient denies any other acute symptoms at the current time. Patient's vital signs are stable. Patient's GCS is 15. Patient is alert and oriented person, place, and time. - Will order IV normal saline 1 L bolus for dehydration. - Will order IV Reglan 10 mg for nausea and vomiting. - Will order chest x-ray due to patient's mild shortness of breath and recent history of pneumonia. - Will order baseline labs. - Will order an EKG and a troponin and proBNP. - Will order COVID, RSV, strep, and flu test. -Will replace patient's potassium with 20 mEq of potassium IV. - Chest x-ray shows stable pneumonia versus atelectasis of the left base, and small left pleural effusion. This radiograph was interpreted by the ER physician and over read by radiology. - Will give the patient IV doxycycline 100 mg for pneumonia. Will give the patient IV methylprednisolone 125 mg. Will contact hospitalist for admission. -(1400) spoke to hospitalistCamryn who is agreed to accept this patient for pneumonia to be placed in observational admission. Patient has failed outpatient treatment for pneumonia. Patient stable at time of admission. Course Course 04/30/25 13:39 04/30/25 13:39 Orders, Labs, Meds: Lab Review 04/30/25 04/30/25 12:35 13:39 WBC 4.59 L RBC 4.05 L Hgb 11.4 L Hct 38.1 MCV 94.1 MCH 28.1 MCHC 29.9 L RDW Coeff of [place] 15.6 H Plt Count 100 L Immature Gran % (Auto) 0.2 Neut % (Auto) 66.8 Lymph % (Auto) 20.9 [place] % (Auto) 9.2 Eos % (Auto) 2.2 Baso % (Auto) 0.7 Neut # (Auto) 3.1 Lymph # (Auto) 1.0 [place] # (Auto) 0.4 Eos # (Auto) 0.1 Baso # (Auto) 0.0 Immature Gran # (Auto) 0.0 Sodium 141.5 Potassium 3.04 L Chloride 104.3 Carbon Dioxide 28.3 Anion Gap 11.94 BUN 8.7 Creatinine 0.66 Estimated GFR (MDRD) 85.00 BUN/Creatinine Ratio 13.18 Glucose 162.0 H Lactic Acid 1.26 Calcium 9.83 Magnesium 2.06 Total Bilirubin 1.52 H AST 49.8 H ALT 22.9 Alkaline Phosphatase 83.2 Troponin I Pending NT-Pro-B Natriuret Pep Pending Total Protein 7.29 Albumin 3.54 Globulin 3.75 Albumin/Globulin Ratio 0.94 Influ A Molecular Assay Negative by naat Influ B Molecular Assay Negative by naat RSV Antigen Negative by naat SARS CoV-2 RNA Rapid DEB Negative Orders Category Date Time Status EKG-(ED ONLY) Stat CARDIO 04/30/25 12:19 Completed CBC W/ AUTO DIFF Stat LAB 04/30/25 13:39 Completed CMP [COMPREHENSIVE METABOLIC PANEL] Stat LAB 04/30/25 13:39 Results COVID [SARS COV-2 RNA RAPID DEB] Stat LAB 04/30/25 12:35 Completed FLU A & B MOLECULAR [FLU A/B MOLECULAR] Stat LAB 04/30/25 12:35 Completed LACTIC ACID Stat LAB 04/30/25 13:39 Completed MAGNESIUM Stat LAB 04/30/25 13:39 Results NT-PROBNP(ED) Stat LAB 04/30/25 13:39 Results RAPID STREP SCREEN [MOLECULAR GROUP A STREP] Stat LAB 04/30/25 12:35 Completed RSV Stat LAB 04/30/25 12:35 Completed TROPONIN I Stat LAB 04/30/25 13:39 Results Doxycycline Hyclate Inj [Doxy-100] 100 mg Meds 04/30/25 13:58 Active 0.9 % Sodium Chloride [Sodium Chloride 100Ml] 100 ml IV ONCE Methylprednisolone Sod Succ/Pf [Solu-Medrol 125 mg] Meds 04/30/25 13:58 Discontinued 125 mg IVP ONCE ONE Metoclopramide HCl [Reglan] Meds 04/30/25 12:26 Discontinued 10 mg IVP ONCE STA Potassium Chloride [Potassium Chloride 20 Meq/100 ml Meds 04/30/25 14:01 Active Premix] 20 meq in 100 ml IV ONCE Sodium Chloride 0.9% [Sodium Chloride] 1,000 ml Meds 04/30/25 12:26 Discontinued IV BOLUS CHEST, 2 VIEWS PA & LAT Stat RADS 04/30/25 12:14 Completed Medications Generic Name Dose Route Start Last Admin Trade Name Freq PRN Reason Stop Dose Admin Doxycycline Hyclate 100 mg/ 100 mls @ 50 mls/hr 04/30/25 13:58 Sodium Chloride IV 04/30/25 15:57 ONCE ONE Potassium Chloride 20 meq in 100 mls @ 50 mls/hr 04/30/25 14:01 Potassium Chloride 20 Meq/100 Ml Premix IV 04/30/25 16:00 ONCE ONE Discontinued Medications Generic Name Dose Route Start Last Admin Trade Name Mariana PRN Reason Stop Dose Admin Sodium Chloride 1,000 mls @ 1,000 mls/hr 04/30/25 12:26 04/30/25 13:29 Sodium Chloride IV 04/30/25 13:25 1,000 mls/hr BOLUS ONE Administration Methylprednisolone Sodium Succinate 125 mg 04/30/25 13:58 Methylprednisolone Sod Succ/Pf 125 Mg/2 Ml Vial IVP 04/30/25 13:59 ONCE ONE Metoclopramide HCl 10 mg 04/30/25 12:26 04/30/25 13:29 Metoclopramide Hcl 10 Mg/2 Ml IVP 04/30/25 12:27 10 mg ONCE STA Administration Vital Signs: Temp Pulse Resp BP Pulse Ox 04/30/25 12:22 96.0 F L 63 16 167/76 H 96 Discharge Plan Discharge Patient Disposition: PLACED OBSERVATION Discharge Problem: Hypokalemia, Dehydration CAP (community acquired pneumonia) Qualifiers: Laterality: left Lung location: lower lobe of lung Qualified Code(s): J18.9 - Pneumonia, unspecified organism Did you review [place] [employer] for ALL controlled substances?: Not Applicable ED Provider: EVELIN PLUMMER Condition: Stable
[2025-04-30 12:56] LABS: MOLECULAR FLU A NEGATIVE BY NAAT (NEGATIVE); MOLECULAR FLU B NEGATIVE BY NAAT (NEGATIVE); RSV MOLECULAR NEGATIVE BY NAAT (NEGATIVE); SARS COV-2 RNA RAPID NAAT NEGATIVE (NEGATIVE)
[2025-04-30] MEDS: REGLAN IVP STA (13:29)
[2025-04-30] MEDS: SODIUM CHLORIDE 1,000 ML IV ONE (13:29)
[2025-04-30 13:41] LABS: IMMATURE GRANULOCYTE # (AUTO) 0.0 (0.0-1.0); IMMATURE GRANULOCYTE % (AUTO) 0.2 % (0.0-5.0); RDW COEFFICIENT OF VARIATION 15.6 % (11.6-14.8)
[2025-04-30 13:52] LABS: CREATININE 0.66 mg/dL (0.60-1.30)
--- NOTE | 2025-04-30 13:54 | DI ---
EXAM: CHEST RADIOGRAPH TECHNIQUE: Two views. Frontal and lateral. HISTORY: Pneumonia. COMPARISON: 04/20/2025 and older studies. FINDINGS: The patient is rotated to the right. Sternotomy, CABG, and prosthetic heart valve with stent, again noted. Stable pneumonia versus atelectasis of the left base, and small left pleural effusion. No pleural effusion or pneumothorax is seen. Stable cardiomegaly. Coarse calcification of the mitral valve annulus, again noted. No acute displaced rib fractures are identified. IMPRESSION: 1. Stable pneumonia versus atelectasis of the left base, and small left pleural effusion.
--- NOTE | 2025-04-30 14:06 | PCM ---
Date of Service Date Seen by Provider: 04/30/25 Time Seen by Provider: 14:10 Admit Day/Time Admission Date: 04/30/25 Admission Time: 14:07 Reason for Admission Chief Complaint: COMMUNITY ACQUIRED PNEUMONIA, DEHYDRATION Hospital Provider Hospital Provider: Isaias Rosenberg PA-C, [facility] Primary Care Physician Primary Care Physician: JANNETH STACY MD History of Present Illness History of Present Illness: Patient is an 84 year old from home who presents to ER with overall not feeling well. She was diagnosed with left sided pneumonia on 04/20. Was prescribed 7 days of levaquin, which she states she finished. However she's continued to not feel well, has a cough, no fever. Has had some n/v associated. States sometimes diarrhea but this is not unusual for her. Feet have been more swollen, was started on lasix by pcp recently as well. In ER, CXR showing LLL pneumonia. K 3.0. She was given potassium and doxy. Will admit to [facility] for pneumonia with failed outpatient antibiotics. Case Discussed With Case Discussed With: Patient's case was discussed with the ER Physicians, Dr. Alves. [facility] Medical History Myocardial infarction 12/29/16 I21.9 - Acute myocardial infarction, unspecified (ICD-10) Lumbar pain M54.5 - Low back pain (ICD-10) CAD (coronary artery disease) I25.10 - Atherosclerotic heart disease of [place] coronary artery without angina pectoris (ICD-10) Surgical History H/O: hemorrhoidectomy Z98.890 - Other specified postprocedural states (ICD-10) H/O colonoscopy with polypectomy Z98.890 - Other specified postprocedural states (ICD-10) Z86.010 - Personal history of colonic polyps (ICD-10) 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 - Presence of xenogenic heart valve (ICD-10) H/O coronary artery bypass surgery Z95.1 - Presence of aortocoronary bypass graft (ICD-10) H/O colectomy Z90.49 - Acquired absence of other specified parts of digestive tract (ICD- 10) History of cardiac cath Z98.890 - Other specified postprocedural states (ICD-10) endoscopy (03/04/19) Status post tonsillectomy Z90.89 - Acquired absence of other organs (ICD-10) Status post hysterectomy Z90.710 - Acquired absence of both cervix and uterus (ICD-10) Status post appendectomy Z90.49 - Acquired absence of other specified parts of digestive tract (ICD- 10) Family History Mother , overdose of medication No problems noted. FATHER , in his sleep CHF (congestive heart failure) BROTHER , Cancer Lung cancer BROTHER , heart failure Cancer BROTHER , cancer and substance abuse Cancer Social History Smoking and tobacco status: Never smoker Passive smoking exposure: No Second hand smoke exposure: No Alcohol intake: never Counseling given: No Substance use type: does not use Counseling given: No Aye/pentecostal: NONE Agree to transfusion: Yes Adopted: No Caregiver/support person: No Foster care: No Household members: spouse Housing: house Marital status: M Lives independently: Yes Number of children: 3 Number of grandchildren: 3 Highest education level completed: high school graduate service: No Current occupational status: retired Current occupational exposures/hazards: No 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 Pets and animals: Yes (one old female dog) Leisure activites: other History of recent travel: No Sexually active: No Do you think of yourself as: straight/heterosexual Current gender identity: female Seatbelt use: always Drives intoxicated or rides with intoxicated pizza 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: No Current diet type/program: regular Well-balanced diet: about half the time Caffeine: Yes Eating out: 1-3 times/week Reads food labels: sometimes During the past year weight has: remained stable Water heater temperature set < 120 degrees: Yes Working smoke detector in home: Yes Fire extinguisher in home: Yes Carbon monoxide detector in home: Yes Firearms in home: Yes What type of physical activity do you participate in?: none Physical activity functional status: independent ambulation How many days of moderate to strenuous exercise, like a brisk walk, did you do in the last 7 days: 0 Allergies Allergies Allergy/AdvReac Type Severity Reaction Status Date / Time Penicillins Allergy Mild Unknown Verified 04/22/25 11:02 hydromorphone HCl (From Allergy Flushing, Verified 04/22/25 11:02 Dilaudid) Nauseated, Dizzy iron Allergy Diarrhea Verified 04/22/25 11:02 Sulfa (Sulfonamide Allergy Unknown Verified 04/22/25 11:02 Antibiotics) morphine AdvReac jittery Verified 04/22/25 11:02 TAPE Allergy Mild Unknown Uncoded 04/22/25 11:02 Current Medications Home Medications Acetaminophen (Acetaminophen 325 Mg Tablet) 650 mg PO Q4H PRN PRN Reason: Mild Pain Albuterol/Ipratropium (Ipratropium/Albuterol Vial.Neb) 3 ml NEB RTQ6H PRN PRN Reason: Wheezing Dextrose (Dextrose 50 % In Water 50 Ml Disp.Syrin) 50 ml IVP ONCE PRN; Protocol PRN Reason: Unconscious Hypoglycemia Doxycycline Hyclate (Doxycycline Hyclate 100 Mg Capsule) 100 mg PO Q12HR YANET Stop: 05/03/25 20:59 Doxycycline Hyclate 100 mg/ (Sodium Chloride) 100 mls @ 50 mls/hr IV ONCE ONE Stop: 04/30/25 15:57 Last Admin: 04/30/25 15:01 Dose: 50 mls/hr Potassium Chloride (Potassium Chloride 20 Meq/100 Ml Premix) 20 meq in 100 mls @ 50 mls/hr IV ONCE ONE Stop: 04/30/25 16:00 CEFTRIAXONE/D5W 1 GM PREMIX (Rocephin 1 Gm/50 Ml D5w) 1 gm in 50 mls @ 100 mls/hr IV DAILY YANET Stop: 05/03/25 14:24 Potassium Chloride (Potassium Chloride 20 Meq/100 Ml Premix) 20 meq in 100 mls @ 50 mls/hr IV ONCE ONE Stop: 04/30/25 16:27 Ondansetron HCl (Ondansetron Hcl/Pf 4 Mg/2 Ml Sdv) 4 mg IVP Q6H PRN PRN Reason: Nausea / Vomiting apixaban 5 mg tablet (Eliquis) 5 mg PO BID 30 days #60 tab-caps 04/21/19 [Rx Confirmed 04/30/25] nitroglycerin 0.4 mg sublingual tablet 0.4 mg sublingual PRN chest pain #60 tab-caps 03/21/23 [Rx Confirmed 04/30/25] lancets 30 gauge (ZertoTouch Delica Plus Lancet) #100 ea 02/11/24 [Rx Confirmed 04/30/25] diclofenac sodium 1 % topical gel (Arthritis Pain (diclofenac)) 2 g topical QID #100 grams 06/06/24 [Rx Confirmed 04/30/25] pen needle, diabetic 31 gauge x 3/16" (BD Ultra-Fine Mini Pen Needle) #200 ea 11/24/24 [Rx Confirmed 04/30/25] blood sugar diagnostic ([employer] Ultra Test strips) #100 strips 11/25/24 [Rx Confirmed 04/30/25] rosuvastatin 40 mg tablet See Rx Instructions .Route .COMPLEX #90 tabs 12/16/24 [Rx Confirmed 04/30/25] losartan 25 mg tablet 25 mg PO QDAY #90 tabs 01/20/25 [Rx Confirmed 04/30/25] triamcinolone acetonide 0.1 % topical cream 1 applic topical BID #80 grams 01/20/25 [Rx Confirmed 04/30/25] lidocaine 5 % topical patch 2 patch topical QDAY #30 ea 03/19/25 [Rx Confirmed 04/30/25] insulin glargine 100 unit/mL (3 mL) subcutaneous pen (Basaglar KwikPen U-100 Insulin) See Rx Instructions subcut BID #30 mL 03/23/25 [Rx Confirmed 04/30/25] albuterol sulfate 2.5 mg/0.5 mL solution for nebulization 2.5 mg (0.5 mL) inhalation 3-4XD PRN shortness of breath or wheezing #30 ea 04/20/25 [Rx Confirmed 04/30/25] nebulizer accessories #1 ea 04/20/25 [Rx Confirmed 04/30/25] nebulizer and compressor #1 ea 04/20/25 [Rx Confirmed 04/30/25] furosemide 20 mg tablet (Lasix) 20 mg PO QAM #30 tabs 04/22/25 [Rx Confirmed 04/30/25] nadolol 40 mg tablet 40 mg PO DAILY #30 tabs 04/22/25 [Rx Confirmed 04/30/25] potassium chloride 10 mEq capsule,extended release 10 meq PO QDAY #30 caps 04/22/25 [Rx Confirmed 04/30/25] sucralfate 1 gram tablet (Carafate) 1 g PO BID #60 tabs 04/22/25 [Rx Confirmed 04/30/25] Opioid Naive vs. Tolerant Does Patient Take Opioids?: No Is Patient Opioid Naive?: Yes What is Opioid Naive?: *Opioid Naive implies the patient is not already taking opioids or not chronically receiving opioids on a daily basis. *PRN dosing is not "usually" associated with tolerance. *Patients are at higher risk of over-sedation and aspiration. Is Patient Opioid Tolerant?: No What is Opioid Tolerant?: *Opioid Tolerance implies less than the expected response to an opioid. *Acquired tolerance is defined by the patient taking 60mg of oral morphine daily (or equianalgesic dose of another opioid) for 1 week or more. *Often associated with chronic pain. *May take more than usual dose to achieve desired pain control. Review of Systems Constitutional: Reports Fatigue, Weakness and Loss of appetite; Denies Fever Head: Reports Normocephalic and Atraumatic Cardiovascular: Reports Edema; Denies Chest pain or Chest Pressure Respiratory: Reports Cough and Shortness of air Gastrointestinal: Reports Nausea, Vomiting and Diarrhea; Denies Abdominal pain or Melena Genitourinary: Denies Dysuria or Frequency Neurological: Reports Weakness; Denies Dizziness or Syncope Physical examination Most Recent Vital Signs: Most Recent Vital Signs Temperature 96.0 F L 04/30/25 12:22 Temperature Source Temporal Artery Scan 04/30/25 12:22 Pulse Rate 63 04/30/25 12:22 Respiratory Rate 16 04/30/25 12:22 Blood Pressure 167/76 H 04/30/25 12:22 O2 Sat by Pulse Oximetry 96 04/30/25 12:22 Height 5 ft 4 in 04/30/25 12:22 Weight 97.6 kg 04/30/25 12:22 Telemetry Heart Rate 58 L 04/30/20 10:31 Appearance: Positive Alert and Oriented x3 and Ill-Appearing Skin: Positive Grubbs, Warm, Good Turgor and Good Color HEENT: Positive Normocephalic and Atraumatic Neck: Positive Midline Trachea Chest/Lungs: Positive Clear to Auscultation Bilaterally; Negative Rales, Rhonci or Wheezes Heart: Positive RRR GI/: Positive Soft, Nontender, Bowel Sounds Normal and No Distention Extremities: Positive Edema (1+ edema of feet severo ) Neurological: Positive Cranial Nerves Intact, Alert, Oriented and Other (+generalized weakness ) Psychiatric: Positive Oriented x4, Appropriate Mood and Appropriate Affect Labs This Visit Labs This Visit: Labs This Visit 04/30/25 04/30/25 12:35 13:39 WBC 4.59 L RBC 4.05 L Hgb 11.4 L Hct 38.1 MCV 94.1 MCH 28.1 MCHC 29.9 L RDW Coeff of [place] 15.6 H Plt Count 100 L Immature Gran % (Auto) 0.2 Neut % (Auto) 66.8 Lymph % (Auto) 20.9 [place] % (Auto) 9.2 Eos % (Auto) 2.2 Baso % (Auto) 0.7 Neut # (Auto) 3.1 Lymph # (Auto) 1.0 [place] # (Auto) 0.4 Eos # (Auto) 0.1 Baso # (Auto) 0.0 Immature Gran # (Auto) 0.0 Sodium 141.5 Potassium 3.04 L Chloride 104.3 Carbon Dioxide 28.3 Anion Gap 11.94 BUN 8.7 Creatinine 0.66 Estimated GFR (MDRD) 85.00 BUN/Creatinine Ratio 13.18 Glucose 162.0 H Lactic Acid 1.26 Calcium 9.83 Magnesium 2.06 Total Bilirubin 1.52 H AST 49.8 H ALT 22.9 Alkaline Phosphatase 83.2 Troponin I < 0.012 NT-Pro-B Natriuret Pep 704 H Total Protein 7.29 Albumin 3.54 Globulin 3.75 Albumin/Globulin Ratio 0.94 Influ A Molecular Assay Negative by naat Influ B Molecular Assay Negative by naat RSV Antigen Negative by naat SARS CoV-2 RNA Rapid DEB Negative Microbiology This Visit 04/30/25 12:35 Throat Group A Strep Molecular Assay - Final Imaging Imaging: EXAM: CHEST RADIOGRAPH TECHNIQUE: Two views. Frontal and lateral. HISTORY: Pneumonia. COMPARISON: 04/20/2025 and older studies. FINDINGS: The patient is rotated to the right. Sternotomy, CABG, and prosthetic heart valve with stent, again noted. Stable pneumonia versus atelectasis of the left base, and small left pleural effusion. No pleural effusion or pneumothorax is seen. Stable cardiomegaly. Coarse calcification of the mitral valve annulus, again noted. No acute displaced rib fractures are identified. IMPRESSION: 1. Stable pneumonia versus atelectasis of the left base, and small left pleural effusion. EXAM: CHEST RADIOGRAPH TECHNIQUE: Single frontal chest radiograph. HISTORY: Shortness of breath. COMPARISON: 05/14/2024 FINDINGS: Or sternotomy and prosthetic heart valve, again noted. Oxygen tubing projects over the patient's chest. Mild pneumonia versus atelectasis of the left base and small left pleural effusion. No visible pneumothorax. Stable cardiomegaly. Coarse calcification of the mitral valve annulus, again noted. No acute displaced rib fractures are identified. IMPRESSION: 1. Mild pneumonia versus atelectasis of the left base, with small left pleural effusion. 2. Stable cardiomegaly. Review Statement Review Statement: I have independently reviewed and interpreted the labs/EKGs/imaging that were ordered by the ER provider. I have reviewed all outside records that are available currently in our EMR including imaging/notes/labs from previous visits. Plan Plan: 1. CAP, left, failed outpatient antibiotics - PSI 104, risk class IV, hospitalization recommended. Completed 7 days of levaquin. Will do doxy and rocephin. Duonebs prn. Add legionella due to GI symptoms, will check mrsa and strep pneumo as well. 2. Elevated BNP and left pleural effusion - Lasix 20 mg IVP x1 given, pt recently started on oral lasix outpatient. Had TTE on 07/31 showing EF 55-60%, severely dilated atrium. Will repeat echo. 3. Hypokalemia - in setting of n/v/d and recent lasix use, replace with 40 meq IV. Mag normal. 4. 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 Mcmahon. She is s/p variceal banding. 5. DMT2 - clear liquid diet for now, progress to diabetic diet, accuchecks achs. Will add sliding scale if needed. 6. Hypertension - Cont home meds 7. Hyperlipidemia - Cont home meds 8. GERD - Cont home meds 9. Severe aortic stenosis s/p TAVR (02/09/21) - Cont outpt f/u, sees Dr. Dominguez 10. PAF - Cont eliquis 11. CAD s/p CABG (2009) - Cont home meds 12. Thrombocytopenia, due to liver disease, chronic - Follows up with oncology at [facility]. DVT Prophylaxis: Eliquis Time Spent: Greater than 80 minutes spent with patient, 50% of the time spent with this patient was devoted to counseling and coordination of care. [facility] minutes spent discussing advance care planning. Admit to: Make inpatient Discussed Plan of Care with Dr. Yaritza Acevedo. Medications Medication Orders: Medications Ordered Category Date Time Status Doxycycline Hyclate Inj [Doxy-100] 100 mg Meds 04/30/25 13:58 Active 0.9 % Sodium Chloride [Sodium Chloride 100Ml] 100 ml IV ONCE Potassium Chloride [Potassium Chloride 20 Meq/100 ml Meds 04/30/25 14:01 Active Premix] 20 meq in 100 ml IV ONCE
[2025-04-30] MEDS ORDERED: DEXTROSE 50%-WATER ABBOJECT IVP PRN (14:21)
[2025-04-30] MEDS ORDERED: DUONEB NEB PRN (14:24)
[2025-04-30] MEDS: SOLU-MEDROL 125 MG IVP ONE (15:01)
[2025-04-30] MEDS: DOXY-100 100 MG in SODIUM CHLORIDE 100ML 100 ML IV ONE (15:01)
[2025-04-30] MEDS: LASIX IVP ONE (16:14)
[2025-04-30] MEDS: ZOFRAN SDV IVP PRN (16:18)
[2025-04-30 17:16] VITALS: BMI 41.4
[2025-04-30] MEDS: ROCEPHIN 1 GM/50 ML D5W 1 GM/50 ML BAG IV SCH (18:05)
[2025-04-30] MEDS: POTASSIUM CHLORIDE 20 MEQ/100 ML PREMIX 20 MEQ/100 ML BAG IV ONE (19:40)
[2025-04-30] MEDS: CARAFATE PO SCH (21:12)
[2025-04-30] MEDS: CRESTOR PO SCH (21:12)
[2025-04-30] MEDS: VIBRAMYCIN PO SCH (21:12)
[2025-04-30] MEDS: ELIQUIS PO SCH (21:12)
[2025-04-30] MEDS: TYLENOL PO PRN (21:17)
[2025-04-30] MEDS: HUMALOG (10 ML VIAL) SUBCUT PRN (22:29)
[2025-05-01] MEDS: POTASSIUM CHLORIDE 20 MEQ/100 ML PREMIX 20 MEQ/100 ML BAG IV ONE ×2 (03:45)
[2025-05-01 05:36] LABS: IMMATURE GRANULOCYTE # (AUTO) 0.0 (0.0-1.0); IMMATURE GRANULOCYTE % (AUTO) 0.3 % (0.0-5.0); RDW COEFFICIENT OF VARIATION 15.1 % (11.6-14.8)
[2025-05-01 06:09] LABS: CREATININE 0.57 mg/dL (0.60-1.30)
[2025-05-01] MEDS: MICRO-K CAP PO SCH (08:39)
[2025-05-01] MEDS: LASIX TAB PO SCH (08:40)
[2025-05-01] MEDS: CORGARD PO SCH ×2 (10:39→20:56)
--- NOTE | 2025-05-01 14:07 | PCM.PROG ---
Date/Time Seen Date Seen by Provider: 05/01/25 Time Seen by Provider: 08:30 Provider Provider: [facility] Chief Complaint Chief Complaint: COMMUNITY ACQUIRED PNEUMONIA, DEHYDRATION Subjective Subjective: Patient reports feeling better than yesterday. No vomiting or diarrhea. Breathing is "ok". Did not sleep well. Echo today. Objective Appearance: Positive No Apparent Distress and Alert and Oriented x3 Chest/Lungs: Positive Clear to Auscultation Bilaterally; Negative Rales, Rhonci or Wheezes Heart: Positive RRR GI/: Positive Soft, Nontender, Bowel Sounds Normal and No Distention Neurological: Positive Cranial Nerves Intact, Alert, Oriented and Other (+generalized weakness ) Additional Findings: 1+ pitting edema of feet severo Vital Signs Vital Signs: Vital Signs: Last 24 Hours 04/30/25 15:52 04/30/25 16:12 04/30/25 16:13 Temperature 97.2 F L Temperature Source Temporal Artery Scan Pulse Rate 62 Respiratory Rate 16 Blood Pressure Blood Pressure Mean Blood Pressure Left Arm 183/96 Blood Pressure Location Blood Pressure Position Sitting O2 Sat by Pulse Oximetry 97 Oxygen Delivery Method Room Air Room Air Height 5 ft Weight 96.2 kg Telemetry Type Remote Telemetry Telemetry Monitoring Started Irregular Telemetry Rate (Approximate) 60-70 BPM Telemetry Heart Rate EKG GA Interval 0.20 EKG QRS Interval 0.12 H Telemetry Strip Reading Sinus Arrhythmia with BBB and PAC's 04/30/25 18:00 04/30/25 19:00 04/30/25 20:00 Temperature 96.1 F L Temperature Source Temporal Artery Scan Pulse Rate 68 Respiratory Rate 16 Blood Pressure 140/78 Blood Pressure Mean 98 Blood Pressure Left Arm Blood Pressure Location Left Arm Blood Pressure Position O2 Sat by Pulse Oximetry 95 Oxygen Delivery Method Room Air Room Air Height Weight Telemetry Type Remote Telemetry Telemetry Monitoring Continues Irregular Telemetry Rate (Approximate) Telemetry Heart Rate 69 EKG GA Interval 0.22 H EKG QRS Interval 0.08 Telemetry Strip Reading SR WITH 1ST DEGREE AVB & PAC'S 04/30/25 21:17 05/01/25 00:50 05/01/25 02:00 Temperature 97.1 F L 97.6 F Temperature Source Temporal Artery Scan Temporal Artery Scan Pulse Rate 71 61 Respiratory Rate 18 19 Blood Pressure 151/71 H 138/59 L Blood Pressure Mean 97 85 Blood Pressure Left Arm Blood Pressure Location Left Arm Left Arm Blood Pressure Position Supine Supine O2 Sat by Pulse Oximetry 95 97 Oxygen Delivery Method Room Air Room Air Height Weight Telemetry Type Remote Telemetry Telemetry Monitoring Continues Irregular Telemetry Rate (Approximate) Telemetry Heart Rate 67 EKG GA Interval 0.22 H EKG QRS Interval 0.06 Telemetry Strip Reading SR WITH 1ST DEGREE AVB 05/01/25 04:35 05/01/25 09:37 Temperature 97.3 F L 97.8 F Temperature Source Temporal Artery Scan Temporal Artery Scan Pulse Rate 72 69 Respiratory Rate 20 18 Blood Pressure 155/83 H 149/79 H Blood Pressure Mean 107 102 Blood Pressure Left Arm Blood Pressure Location Left Arm Left Arm Blood Pressure Position Supine Supine O2 Sat by Pulse Oximetry 97 97 Oxygen Delivery Method Room Air Room Air Height Weight Telemetry Type Telemetry Monitoring Irregular Telemetry Rate (Approximate) Telemetry Heart Rate EKG GA Interval EKG QRS Interval Telemetry Strip Reading Lab Results Lab Results: Lab Results: Last 24 Hours 05/01/25 05:20 WBC 3.99 L RBC 4.12 L Hgb 11.7 L Hct 38.3 MCV 93.0 MCH 28.4 MCHC 30.5 L RDW Coeff of [place] 15.1 H Plt Count 96 L Immature Gran % (Auto) 0.3 Neut % (Auto) 81.3 H Lymph % (Auto) 16.3 [place] % (Auto) 1.8 Eos % (Auto) 0.0 Baso % (Auto) 0.3 Neut # (Auto) 3.3 Lymph # (Auto) 0.7 [place] # (Auto) 0.1 L Eos # (Auto) 0.0 Baso # (Auto) 0.0 Immature Gran # (Auto) 0.0 Sodium 139.4 Potassium 3.52 Chloride 103.4 Carbon Dioxide 25.1 Anion Gap 14.42 BUN 9.8 Creatinine 0.57 L Estimated GFR (MDRD) 101.00 BUN/Creatinine Ratio 17.19 Glucose 264.7 H D Calcium 9.63 Total Bilirubin 1.28 AST 44.9 H ALT 25.0 Alkaline Phosphatase 77.7 Total Protein 6.87 Albumin 3.32 L Globulin 3.55 Albumin/Globulin Ratio 0.93 Additional Comments Additional Comments: I have independently reviewed and interpreted the labs/EKGs/imaging ordered during this hospital stay. I have reviewed outside records that are available in our EMR that pertain to medical stay including imaging/notes/labs from previous visits. Active Medications Active Medications: Medications Generic Name Dose Route Start Last Admin Trade Name Freq PRN Reason Stop Dose Admin Acetaminophen 650 mg 04/30/25 14:21 04/30/25 21:17 Acetaminophen 325 Mg Tablet PO 650 mg Q4H PRN Administration Mild Pain Albuterol/Ipratropium 3 ml 04/30/25 14:24 Ipratropium/Albuterol Vial.Neb NEB RTQ6H PRN Wheezing Apixaban 5 mg 04/30/25 21:00 05/01/25 08:40 Apixaban 5 Mg Tab PO 5 mg BID YANET Administration Dextrose 50 ml 04/30/25 14:21 Dextrose 50 % In Water 50 Ml Disp.Syrin IVP ONCE PRN Unconscious Hypoglycemia Protocol Doxycycline Hyclate 100 mg 04/30/25 21:00 05/01/25 08:39 Doxycycline Hyclate 100 Mg Capsule PO 05/03/25 20:59 100 mg Q12HR YANET Administration Furosemide 20 mg 05/01/25 09:00 05/01/25 08:40 Furosemide 20 Mg Tablet PO 20 mg QAM YANET Administration CEFTRIAXONE/D5W 1 GM PREMIX 1 gm in 50 mls @ 100 mls/hr 04/30/25 14:25 05/01/25 09:39 Rocephin 1 Gm/50 Ml D5w IV 05/03/25 14:24 100 mls/hr DAILY YANET Administration Insulin Human Lispro 0 unit 04/30/25 21:56 05/01/25 12:03 Insulin Lispro 100 Unit/Ml (10 Ml Vial) SUBCUT 2 unit PRN PRN Administration Hyperglycemia Protocol Nadolol 40 mg 05/01/25 09:00 05/01/25 10:39 Nadolol 40 Mg Tablet PO Not Given DAILY YANET Ondansetron HCl 4 mg 04/30/25 14:21 05/01/25 10:40 Ondansetron Hcl/Pf 4 Mg/2 Ml Sdv IVP 4 mg Q6H PRN Administration Nausea / Vomiting Potassium Chloride 10 meq 05/01/25 09:00 05/01/25 08:39 Potassium Chloride 10 Meq Capsule.Er PO 10 meq DAILY YANET Administration Rosuvastatin Calcium 40 mg 04/30/25 18:30 04/30/25 21:12 Rosuvastatin Calcium 10 Mg Tablet PO 40 mg QPM YANET Administration Sucralfate 1 gm 04/30/25 21:00 05/01/25 08:40 Sucralfate 1 Gm Tablet PO 1 gm BID YANET Administration Plan Plan: 1. CAP, left, failed outpatient antibiotics - PSI 104, risk class IV, hospitalization recommended. Completed 7 days of levaquin. Cont doxy and rocephin. Duonebs prn. Add legionella due to GI symptoms, will check mrsa and strep pneumo as well. 2. Elevated BNP and left pleural effusion - Lasix 20 mg IVP x1 given, pt recently started on oral lasix outpatient. Had TTE on 07/31 showing EF 55-60%, severely dilated atrium. Will repeat echo. 3. Hypokalemia - Resolved. Mag normal. 4. 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 Mcmahon. She is s/p variceal banding. 5. DMT2 - Progress diet today 6. Hypertension - Cont home meds 7. Hyperlipidemia - Cont home meds 8. GERD - Cont home meds 9. Severe aortic stenosis s/p TAVR (02/09/21) - Cont outpt f/u, sees Dr. Dominguez 10. PAF - Cont eliquis 11. CAD s/p CABG (2009) - Cont home meds 12. Thrombocytopenia, due to liver disease, chronic - Follows up with oncology at [facility]. DVT Prophylaxis: Sacha Dispo: Potential dc tomorrow pending medically stable Review Statement Review Statement: I have personally discussed and reviewed the patient's visit/currently labs/imaging/decision making with Dr. Acevedo, my supervising attending. Greater that 50 minutes spent with patient, 50% of the time spent with this patient was devoted to counseling and coordination of care.
[2025-05-01 20:16] VITALS: RESP 18
[2025-05-01] MEDS: BENADRYL PO ONE (20:55)
[2025-05-01] MEDS: FLONASE NAS SCH (20:55)
[2025-05-02 05:05] LABS: IMMATURE GRANULOCYTE # (AUTO) 0.0 (0.0-1.0); IMMATURE GRANULOCYTE % (AUTO) 0.1 % (0.0-5.0); RDW COEFFICIENT OF VARIATION 15.3 % (11.6-14.8)
[2025-05-02 05:16] VITALS: BP 118/77; PULSE 52; TEMP 97.5
[2025-05-02 05:18] LABS: CREATININE 0.84 mg/dL (0.60-1.30)
[2025-05-02] MEDS: MICRO-K CAP PO SCH (08:58)
[2025-05-02] MEDS: LASIX TAB PO SCH (09:02)
[2025-05-02] MEDS: CARAFATE PO SCH (09:02)
[2025-05-02] MEDS: K-DUR PO ONE (09:30)
--- NOTE | 2025-05-02 10:07 | DCSUM ---
Admission Date Admission Date: 04/30/25 Discharge Date Discharge Date: 05/02/25 Admission Diagnosis Admission Diagnosis: 1. CAP, left, failed outpatient antibiotics 2. Elevated BNP and left pleural effusion 3. Hypokalemia Discharge Diagnosis Discharge Diagnosis: 1. CAP, left, failed outpatient antibiotics 2. Elevated BNP and left pleural effusion 3. Hypokalemia - Resolved. 4. 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 Mcmahon. She is s/p variceal banding. 5. DMT2 6. Hypertension 7. Hyperlipidemia 8. GERD 9. Severe aortic stenosis s/p TAVR (02/09/21) 10. PAF 11. CAD s/p CABG (2009) 12. Thrombocytopenia, due to liver disease, chronic Hospital Provider Hospital Provider: ISAI[facility] ROS[facility]BERG [facility]-C, [facility] Physician Primary Care Physician: JANNETH STACY MD Summary of History and Physical Summary of History and Physical: Patient is an 84 year old from home who presents to ER with overall not feeling well. She was diagnosed with left sided pneumonia on 04/20. Was prescribed 7 days of levaquin, which she states she finished. However she's continued to not feel well, has a cough, no fever. Has had some n/v associated. States sometimes diarrhea but this is not unusual for her. Feet have been more swollen, was started on lasix by pcp recently as well. In ER, CXR showing LLL pneumonia. K 3.0. She was given potassium and doxy. Will admit to [facility] for pneumonia with failed outpatient antibiotics. Hospital Course Subjective: Patient's PSI 104 class IV, hospitalization recommended. Treated with rocephin and doxy. Mrsa negative. Legionella and strep pneumo still pending. Patient has remained on RA. Due to her comorbities she was kept an additional night on 05/01. Diet progressed, patient has had no more dry heaving or diarrhea. Echo performed by Dr. Juliette Acevedo, report still pending, however seems unchanged since echo last year. EF preserved. Today she looks good, sitting to side of bed, has been ambulatory. She feels well enough to go home. Will discharge on cefuroxime and doxy. F/u with pcp this coming week for recheck. Offered home health but she declines. Appearance: Pleasant, No Apparent Distress and Alert HEENT: MMM CVS: Other (RRR) Abdomen: Soft, Non-Tender and No Distention Respiratory: No Accessory Muscle Use Extremities: Other (1+ pitting edema ) Vital Signs: Most Recent Vital Signs Temperature 97.5 F L 05/02/25 05:15 Temperature Source Temporal Artery Scan 05/02/25 05:15 Temperature Source Temporal Artery Scan 04/30/25 12:22 Pulse Rate 52 L 05/02/25 05:15 Respiratory Rate 18 05/02/25 05:15 Blood Pressure 118/77 05/02/25 05:15 Blood Pressure Mean 90 05/02/25 05:15 Blood Pressure Left Arm 183/96 04/30/25 16:12 Blood Pressure Location Left Arm 05/02/25 05:15 Blood Pressure Position Sitting 05/02/25 05:15 O2 Sat by Pulse Oximetry 94 L 05/02/25 05:15 Oxygen Delivery Method Room Air 05/02/25 05:15 Height 5 ft 04/30/25 16:12 Weight 96.2 kg 04/30/25 16:12 Telemetry Type Remote Telemetry 05/02/25 07:00 Telemetry Monitoring Continues 05/02/25 07:00 Irregular Telemetry Rate (Approximate) 50-60 BPM 05/02/25 07:00 Telemetry Heart Rate 54 L 05/02/25 07:00 EKG ME Interval 0.16 05/02/25 07:00 EKG QRS Interval 0.06 05/02/25 07:00 Telemetry Strip Reading SB 05/02/25 07:00 Imaging: EXAM: CHEST RADIOGRAPH TECHNIQUE: Two views. Frontal and lateral. HISTORY: Pneumonia. COMPARISON: 04/20/2025 and older studies. FINDINGS: The patient is rotated to the right. Sternotomy, CABG, and prosthetic heart valve with stent, again noted. Stable pneumonia versus atelectasis of the left base, and small left pleural effusion. No pleural effusion or pneumothorax is seen. Stable cardiomegaly. Coarse calcification of the mitral valve annulus, again noted. No acute displaced rib fractures are identified. IMPRESSION: 1. Stable pneumonia versus atelectasis of the left base, and small left pleural effusion. EXAM: CHEST RADIOGRAPH TECHNIQUE: Single frontal chest radiograph. HISTORY: Shortness of breath. COMPARISON: 05/14/2024 FINDINGS: Or sternotomy and prosthetic heart valve, again noted. Oxygen tubing projects over the patient's chest. Mild pneumonia versus atelectasis of the left base and small left pleural effusion. No visible pneumothorax. Stable cardiomegaly. Coarse calcification of the mitral valve annulus, again noted. No acute displaced rib fractures are identified. IMPRESSION: 1. Mild pneumonia versus atelectasis of the left base, with small left pleural effusion. 2. Stable cardiomegaly. Echo report pending Lab Results Last 24 Hours: 05/02/25 04:57 WBC 7.27 RBC 3.61 L Hgb 10.4 L Hct 34.5 L MCV 95.6 MCH 28.8 MCHC 30.1 L RDW Coeff of Tawanna 15.3 H Plt Count 98 L Immature Gran % (Auto) 0.1 Neut % (Auto) 77.0 H Lymph % (Auto) 15.0 [place] % (Auto) 6.9 Eos % (Auto) 0.7 Baso % (Auto) 0.3 Neut # (Auto) 5.6 Lymph # (Auto) 1.1 [place] # (Auto) 0.5 Eos # (Auto) 0.1 Baso # (Auto) 0.0 Immature Gran # (Auto) 0.0 Sodium 141.9 Potassium 3.46 L Chloride 105.0 Carbon Dioxide 29.3 Anion Gap 11.06 BUN 12.9 Creatinine 0.84 Estimated GFR (MDRD) 65.00 BUN/Creatinine Ratio 15.35 Glucose 208.9 H D Calcium 9.89 Total Bilirubin 0.69 AST 48.0 H ALT 25.1 Alkaline Phosphatase 73.0 Total Protein 6.36 Albumin 3.09 L Globulin 3.27 Albumin/Globulin Ratio 0.94 Discharge Instructions Discharge Planning: Discharge Planning > [address] Yaritza Acevedo. Discharge Medications: Medications at Discharge (Home Meds & RX) apixaban 5 mg tablet (Eliquis) 5 mg PO BID 30 days #60 tab-caps 04/21/19 nitroglycerin 0.4 mg sublingual tablet 0.4 mg sublingual PRN chest pain #60 tab-caps 03/21/23 lancets 30 gauge (addwishuch Delica Plus Lancet) #100 ea 02/11/24 pen needle, diabetic 31 gauge x 3/16" (BD Ultra-Fine Mini Pen Needle) #200 ea 11/24/24 blood sugar diagnostic (addwishuch Ultra Test strips) #100 strips 11/25/24 rosuvastatin 40 mg tablet See Rx Instructions .Route .COMPLEX #90 tabs 12/16/24 triamcinolone acetonide 0.1 % topical cream 1 applic topical BID #80 grams 01/20/25 lidocaine 5 % topical patch 2 patch topical QDAY #30 ea 03/19/25 insulin glargine 100 unit/mL (3 mL) subcutaneous pen (Basaglar KwikPen U-100 Ins ulin) See Rx Instructions subcut BID #30 mL 03/23/25 albuterol sulfate 2.5 mg/0.5 mL solution for nebulization 2.5 mg (0.5 mL) inhalation 3-4XD PRN shortness of breath or wheezing #30 ea 04/20/25 nebulizer accessories #1 ea 04/20/25 nebulizer and compressor #1 ea 04/20/25 furosemide 20 mg tablet (Lasix) 20 mg PO QAM #30 tabs 04/22/25 nadolol 40 mg tablet 40 mg PO DAILY #30 tabs 04/22/25 potassium chloride 10 mEq capsule,extended release 10 meq PO QDAY #30 caps 04/22/25 sucralfate 1 gram tablet (Carafate) 1 g PO BID #60 tabs 04/22/25 diclofenac sodium 1 % topical gel (Arthritis Pain (diclofenac)) 2 g topical QID PRN Arthritis pain 04/30/25 cefuroxime axetil 500 mg tablet 500 mg PO BID #5 tabs 05/02/25 doxycycline hyclate 100 mg capsule 100 mg PO Q12HR #5 caps 05/02/25 Discharge Plan Discharge Discharge Orders: Discharge Patient (ONCE); Ordered 05/02/25 Ordered By: ISAIAS ROSENBERG Activity Restrictions/Additional Instructions: DISCHARGE TO HOME DX: PNEUMONIA PHARMACY: [facility] DIET: DIABETIC FOLLOW UP WITH PCP WITHIN 1 WEEK RETURN WITH WORSENING SYMPTOMS Care Plan Goals: Problem: Activity Intolerance Goal: Demonstrate increased activity intolerance Instructions: Determine cause of activity intolerance Change positions slowly Gradually increase activity Report intolerances to provider Problem: Risk for falls Goal: No falls or injury Instructions: Have no throw rugs on the floor Make sure pathway is clear of all objects Use assistance devices if applicable Patient Disposition: HOME SELF-CARE Prescriptions: New cefuroxime axetil 500 mg tablet 500 mg PO BID Qty: 5 0RF Rx Instructions: START TONIGHT 05/02 doxycycline hyclate 100 mg Capsule 100 mg PO Q12HR Qty: 5 0RF Rx Instructions: START TONIGHT 05/02 Continued Eliquis 5 MG tablet 5 mg PO BID 30 Days Qty: 60 2RF Rx Instructions: On hold for valve replacement rosuvastatin 40 mg tablet See Rx Instructions .ROUTE .COMPLEX Qty: 90 3RF Dose Instruction: TAKE ONE (1) TABLET (40 MG) BY MOUTH EVERY EVENING Rx Instructions: TAKE ONE (1) TABLET (40 MG) BY MOUTH EVERY EVENING insulin glargine [Basaglar KwikPen U-100 Insulin] 100 unit/mL (3 mL) insulin pen See Rx Instructions subcut BID Qty: 30 1RF Rx Instructions: 40 units in the AM and 20 units in the PM subcutaneously twice a day; albuterol sulfate 2.5 mg/0.5 mL solution for nebulization 2.5 mg inhalation 3-4XD PRN (Reason: shortness of breath or wheezing) Qty: 30 0RF diclofenac sodium [Arthritis Pain (diclofenac)] 1 % gel 2 g topical QID PRN (Reason: Arthritis pain) Rx Instructions: apply to single elbow, wrist or hand; for hand includes palm/fingers/back of hand potassium chloride 10 mEq capsule, extended release 10 meq PO QDAY Qty: 30 0RF furosemide [Lasix] 20 mg tablet 20 mg PO QAM Qty: 30 0RF sucralfate [Carafate] 1 gram tablet 1 g PO BID Qty: 60 0RF nadolol 40 mg tablet 40 mg PO DAILY Qty: 30 1RF nitroglycerin 0.4 mg tablet, sublingual 0.4 mg sublingual PRN Qty: 60 0RF lidocaine 5 % adhesive patch,medicated 2 patch topical QDAY Qty: 30 3RF Rx Instructions: leave on most painful area for up to 12 hrs No Action (DME) lancets [OneTouch Delica Plus Lancet] 30 gauge misc See Rx Instructions .ROUTE .COMPLEX Qty: 100 6RF Dose Instruction: TESTING 3 TIMES DAILY AND NEEDED. E11.9 Rx Instructions: TESTING 3 TIMES DAILY AND NEEDED. E11.9 (DME) pen needle, diabetic [BD Ultra-Fine Mini Pen Needle] 31 gauge x 3/16" needle See Rx Instructions .ROUTE .COMPLEX Qty: 200 12RF Dose Instruction: USE WITH INSULIN FOUR TIMES PER DAY. Rx Instructions: USE WITH INSULIN FOUR TIMES PER DAY. (DME) OneTouch Ultra Test Strip See Rx Instructions .ROUTE .COMPLEX Qty: 100 11RF Dose Instruction: TESTING 3 TIMES DAILY AND NEEDED. DX E11.9 Rx Instructions: TESTING 3 TIMES DAILY AND NEEDED. DX E11.9 (DME) nebulizer accessories Kit See Rx Instructions .ROUTE Qty: 1 0RF Rx Instructions: As directed (DME) nebulizer and compressor Device See Rx Instructions .ROUTE Qty: 1 0RF Rx Instructions: As directed triamcinolone acetonide 0.1 % cream 1 applic topical BID Qty: 80 0RF Rx Instructions: can use for 2 weeks at a time Did you review [place] for ALL controlled substances?: Not Applicable Discussed opioids are addictive and Narcan is available by prescription or from pharmacy.: No Condition: Stable Referrals: CHERRI ANAND MD [STAFF PHYSICIAN, Family Practice] - 05/05/25 11:00 am Referral Note: Dr. Stacy and Dr. Anand will see you at this appointment.
[2025-05-02 20:17] LABS: STEP PNEUMO ORGANISM ID Not indicated. (.); STREP PNEUMO AG Negative (Negative); STREP PNEUMO BODY FLUID CULT Not indicated. (.)
[2025-05-02] MEDS ORDERED: CORGARD PO SCH (21:00)
--- NOTE | 2025-05-04 13:38 | ECHO2D ---
Date of Exam: 05/01/2025 Ordering Physician: HOSPITALIST/ PCP DR. JANNETH STACY Room #: 122 Reason for Echo: CAD, HTN, DM2, ANEMIA HX CABG, [place] M-Mode Normal Adult Results LV Dimensions Normal Adult Results AoV Opening excursions >1.6 >1.4 LVEDD-base- 3.5-5.8 5.0 Ao root dimensions 2.0-3.7 2.8 LVESD-base- 3.1-4.6 L. Atrium dimensions 1.9-3.8 6.0 Post. Wall thickness 0.8-1.1 1.3 IV septum (thickness) 0.7-1.2 1.5 Post. Wall excursion 0.72-1.3 NORMAL Septal motion 0.4 Systolic motion R. Ventricular cavity 1.5-2.0 NORMAL LVEF 60% 58% Paradoxical septal wall motion NORMAL 2-D : HYPOKINETIC SEPTUM--HYPERDYNAMIC INFERIOR POST WALL, THICKENED MITRAL VALVE LEAFLETS WITH REDUCED MOTION--AORTIC VALVE NORMAL, TRICUSPID / PULMONARY VALVES OK, LEFT VENTRICLE SIZE NORMAL, MARKEDLY ENLARGED LEFT ATRIAL CAVITY--NO EFFUSION, NO THROMBUS M-MODE: MV: CALCIFIC ANNULUS / THICKENED LEAFLETS--MODERATE MITRAL STENOSIS AV: NORMAL AORTIC VALVE PROTHESIS TV: NORMAL PV: NORMAL CHAMBER SIZE: ENLARGED LEFT ATRIAL CAVITY WALL MOTION: HYPOKINETIC SEPTAL WALL PERICARDIUM: NORMAL INTERPRETATION: 1. LEFT VENTRICLE HYPERTROPHY WITH MARKEDLY ENLARGED LEFT ATRIAL CAVITY 2. HYPOKINETIC SEPTAL WALL BUT HYPERDYNAMIC INFERIOR POST WALL WITH EJECTION FRACTION 58% 3. 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 AORTIC PROSTHESIS VALVE--NORMAL MTDD
== END 2025-05-02 10:30 | disposition home or self-care (01) | DRG 194 ==
LOC: ED 11:59 → MEDSURG B 15:10
PROVIDERS: ADMIT Hospitalist; ATTEND Physician Assistant

== ENCOUNTER 2025-09-24 09:17 | Inpatient (IN) ==
--- NOTE | 2025-09-24 09:26 | ED.PDOC ---
General HPI ED Provider: Dr. EVELIN PLUMMER MD Chief Complaint: Abdominal Pain Stated Complaint: Patient is an 84-year-old female that reported to the emergency department for nausea, vomiting, and diarrhea. Patient stated that her symptoms started at 3:00 this morning. Patient stated that she has not taken anything for her symptoms. Patient denies any recent contact with people with similar symptoms. Patient denied any recent travel outside the country, no drinking from any impure water sources, patient has not eaten anything that tasted abnormal to her recently. Patient did state that she has recently been on antibiotics for pneumonia. Patient denied any fever but did state that she has had chills. Patient stated that she has had dry heaving with a little bit of vomitus a couple times this morning. Patient stated that she has had several bouts of diarrhea that are now watery in consistency. Patient stated that she has left lower quadrant abdominal pain as well. Patient currently rates her pain at a 5 out of 10. Patient stated that most of her pain is whenever she palpates her abdomen. Patient also states she had discomfort with certain movements. Patient denied any hematochezia, hemoptysis, or melanic stools. Patient denies any chest pain, shortness of breath, or any other acute symptoms not currently mentioned in his HPI. Patient's vital signs are currently stable. Patient's GCS is 15. Time Seen by Provider: 09/24/25 09:20 Mode of Arrival: Ambulance Information Source: Patient and EMT Exam Limitations: No limitations Primary Care Provider: JANNETH STACY MD Nursing and Triage Documentation Reviewed and Agree: Yes Opioid Naive vs. Tolerant What is Opioid Naive?: *Opioid Naive implies the patient is not already taking opioids or not chronically receiving opioids on a daily basis. *PRN dosing is not "usually" associated with tolerance. *Patients are at higher risk of over-sedation and aspiration. What is Opioid Tolerant?: *Opioid Tolerance implies less than the expected response to an opioid. *Acquired tolerance is defined by the patient taking 60mg of oral morphine daily (or equianalgesic dose of another opioid) for 1 week or more. *Often associated with chronic pain. *May take more than usual dose to achieve desired pain control. Review of Systems Review Of Systems Constitutional: Reports No symptoms GI: Reports Abdominal pain (Left lower quadrant abdominal pain), Diarrhea, Nausea and Vomiting All Other Systems: Reviewed and Negative [facility] Medical History CAP (community acquired pneumonia) Would like repeat BMP and Mg++ in 1 weeks after discharge. S/p doxycycline and cefuroxime course; denies having respiratory symptoms. J18.9 - Pneumonia, unspecified organism (ICD-10) Myocardial infarction 12/29/16 I21.9 - Acute myocardial infarction, unspecified (ICD-10) Lumbar pain M54.5 - Low back pain (ICD-10) CAD (coronary artery disease) I25.10 - Atherosclerotic heart disease of [place] coronary artery without angina pectoris (ICD-10) Family History Mother , overdose of medication No problems noted. FATHER , in his sleep CHF (congestive heart failure) BROTHER , Cancer Lung cancer BROTHER , heart failure Cancer BROTHER , cancer and substance abuse Cancer Social History Smoking and tobacco status: Never smoker Passive smoking exposure: No Second hand smoke exposure: No Alcohol intake: never Counseling given: No Substance use type: does not use Counseling given: No Aye/evangelical: NONE Agree to transfusion: Yes Adopted: No Caregiver/support person: No Foster care: No Household members: spouse Housing: house Marital status: M Lives independently: Yes Number of children: 3 Number of grandchildren: 3 Highest education level completed: high school graduate service: No Current occupational status: retired Current occupational exposures/hazards: No 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 Pets and animals: Yes (one old female dog) Leisure activites: other History of recent travel: No Sexually active: No Do you think of yourself as: straight/heterosexual Current gender identity: female Seatbelt use: always Drives intoxicated or rides with intoxicated [employer] 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 driver: No Current diet type/program: regular Well-balanced diet: about half the time Caffeine: Yes Eating out: 1-3 times/week Reads food labels: sometimes During the past year weight has: remained stable Water heater temperature set < 120 degrees: Yes Working smoke detector in home: Yes Fire extinguisher in home: Yes Carbon monoxide detector in home: Yes Firearms in home: Yes What type of physical activity do you participate in?: none Physical activity functional status: independent ambulation How many days of moderate to strenuous exercise, like a brisk walk, did you do in the last 7 days: 0 Surgical History H/O: hemorrhoidectomy Z98.890 - Other specified postprocedural states (ICD-10) H/O colonoscopy with polypectomy Z98.890 - Other specified postprocedural states (ICD-10) Z86.010 - Personal history of colonic polyps (ICD-10) 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 - Presence of xenogenic heart valve (ICD-10) H/O coronary artery bypass surgery Z95.1 - Presence of aortocoronary bypass graft (ICD-10) H/O colectomy Z90.49 - Acquired absence of other specified parts of digestive tract (ICD- 10) History of cardiac cath Z98.890 - Other specified postprocedural states (ICD-10) endoscopy (03/04/19) Status post tonsillectomy Z90.89 - Acquired absence of other organs (ICD-10) Status post hysterectomy Z90.710 - Acquired absence of both cervix and uterus (ICD-10) Status post appendectomy Z90.49 - Acquired absence of other specified parts of digestive tract (ICD- 10) Female Reproductive History Menstrual Age of Menarche: 14 Hx Hysterectomy: Yes Hx Tubal Ligation: No Physical Exam Physical Exam Appearance: Reports Ill-appearing Ill-appearing: Mild Pain Distress: None Eyes: Reports RENATA, EOMI and Conjunctiva clear ENT: Reports Ears normal, Nose normal and Dry mucosa Neck: Supple Respiratory: Reports Airway patent, Breath sounds clear, Breath sounds equal and Respirations nonlabored Cardiovascular: Reports RRR, Pulses normal, No rub and Murmur (S1 murmur noted in all 4 cardiac beds.) GI/: Reports Soft, No masses, Tender (Patient had tenderness to palpation over the left lower abdominal quadrant. Mata sign negative however patient has positive tenderness to palpation of the right upper quadrant as well. No rebound tenderness noted. No guarding noted.) and Bowel sounds hypoactive Musculoskeletal: Reports Normal strength and ROM intact Skin: Reports Warm, Dry and Normal color Neurological: Reports Sensation intact, Motor intact, Alert and Oriented Psychiatric: Reports Affect appropriate and Mood appropriate Physician Progress Note Physician Progress Note: Patient is an 84-year-old female that reported to the emergency department for nausea, vomiting, and diarrhea. Patient stated that her symptoms started at 3:00 this morning. Patient stated that she has not taken anything for her symptoms. Patient denies any recent contact with people with similar symptoms. Patient denied any recent travel outside the country, no drinking from any impure water sources, patient has not eaten anything that tasted abnormal to her recently. Patient did state that she has recently been on antibiotics for pneumonia. Patient denied any fever but did state that she has had chills. Patient stated that she has had dry heaving with a little bit of vomitus a couple times this morning. Patient stated that she has had several bouts of diarrhea that are now watery in consistency. Patient stated that she has left lower quadrant abdominal pain as well. Patient currently rates her pain at a 5 out of 10. Patient stated that most of her pain is whenever she palpates her abdomen. Patient also states she had discomfort with certain movements. Patient denied any hematochezia, hemoptysis, or melanic stools. Patient denies any chest pain, shortness of breath, or any other acute symptoms not currently mentioned in his HPI. Patient's vital signs are currently stable. Patient's GCS is 15. - Will order IV 1 L lactated ringer bolus for patient's dehydration due to nausea, vomiting, and diarrhea. - Will order stool cultures. -Will give IV ondansetron 4 mg once for nausea and vomiting. -Will give the patient IV Protonix 40 mg once. -Will give the patient IV Tylenol 1 g for 5 out of 10 abdominal pain. - Patient has recently been on antibiotics for pneumonia. Will test patient for C. difficile. - Will order baseline labs. - Will order CT of the abdomen pelvis with contrast due to acute abdominal pain to rule out diverticulitis versus cholecystitis versus any other acute intra- abdominal pathology. - Patient has anemia of chronic disease with a hemoglobin of 10.5 and hematocrit of 35 today. - Patient's blood glucose is elevated at 192 mg/dL. Patient is currently receiving fluids. - Patient stated that she is still nauseated at bedside when reassessed. Will give the patient IV Reglan 10 mg once for nausea. - Chest x-ray shows a left lower lobe pneumonia. This radiograph was interpreted by the ER physician and over read by radiology. - Will give the patient IV cefepime 1 g and IV doxycycline 100 mg to treat typical and atypical pathogens for pneumonia, respectively. - Patient is positive for H. pylori. - Patient has a leukocyte esterase positive UTI. Patient has already been given IV cefepime 1 g which will cover typical pathogens for UTI. - CT of the abdomen and pelvis showed: 1. Moderate pleural fluid collection on the left with compressive atelectasis. Infiltrate is felt less likely on the left but not excluded. 2. Findings of cirrhosis including cirrhotic appearance of the liver and splenic enlargement and varices particularly. 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 No hepatic lesion or mass. 3. Distention of the gallbladder nonspecific without other biliary abnormality. 4. Up to moderate ascites similar to the prior. 5. There is contraction of the colon. Some wall thickening throughout the colon cannot be excluded though this is underdistended. Mild diffuse colitis is not excluded. Diverticulosis without focal diverticulitis. Bowel throughout otherwise has a normal appearance. Appendix is not seen though no secondary CT signs for appendicitis. Moderate stool in the rectal vault. There may be hemorrhoids. No focal mass. If there is concern direct visualization is recommended. Stomach is also contracted some poorly evaluated though if there is concern direct visualization is recommended. 6. Benign-appearing cyst right kidney. No other renal or ureteral or bladder abnormality. Hysterectomy without pelvic abnormality. 7. Vascular calcification without aneurysm or dissection. - Pt is positive for Campylobacter. -([phone]) spoke to Ms. Jesse Samayoa NP the hospitalist here at [facility] admission for this patient. Discussed patient's UTI, pneumonia, colitis, Campylobacter positive and H. pylori positive findings. Discussed current treatments with the hospitalist and all laboratory/radiograph findings. Jesse has agreed to admit this patient for observation. Patient's vital signs are stable at time of admission agreeance. Course Course 09/24/25 09:45 09/24/25 09:45 Orders, Labs, Meds: Lab Review 09/24/25 09/24/25 09/24/25 09:35 09:45 11:40 WBC 7.75 RBC 3.79 L Hgb 10.5 L Hct 35.4 L MCV 93.4 MCH 27.7 MCHC 29.7 L RDW Coeff of [place] 14.8 Plt Count 140 Immature Gran % (Auto) 0.4 Neut % (Auto) 90.9 H Lymph % (Auto) 4.1 L [place] % (Auto) 3.5 Eos % (Auto) 1.0 Baso % (Auto) 0.1 Neut # (Auto) 7.0 H Lymph # (Auto) 0.3 L [place] # (Auto) 0.3 L Eos # (Auto) 0.1 Baso # (Auto) 0.0 Immature Gran # (Auto) 0.0 Sodium 141.1 Potassium 3.55 Chloride 105.8 Carbon Dioxide 25.8 Anion Gap 13.05 BUN 13.6 Creatinine 0.77 Estimated GFR (MDRD) 71.00 BUN/Creatinine Ratio 17.66 Glucose 192.3 H Calcium 10.29 H Total Bilirubin 1.10 AST 66.9 H ALT 31.3 Alkaline Phosphatase 96.7 Total Protein 7.94 Albumin 3.82 Globulin 4.12 Albumin/Globulin Ratio 0.92 Lipase 282.4 Urine Color Yellow Urine Clarity Cloudy Urine pH 7.0 Ur Specific [place] 1.020 Urine Protein 2+ H Urine Glucose (UA) Negative Urine Ketones Negative Urine Blood Trace-intact H Urine Nitrite Negative Urine Bilirubin Negative Urine Urobilinogen 0.2 Ur Leukocyte Esterase 1+ H Urine Microscopic RBC 0-2 Urine Microscopic WBC 5-10 Ur Squamous Epith Cells 2-5 Stool H. pylori Ag Positive Influ A Molecular Assay Negative by naat Influ B Molecular Assay Negative by naat SARS CoV-2 RNA Rapid DEB Negative Orders Category Date Time Status C-DIFF MONITORING (NURSING) BID CARE 09/24/25 10:42 Active NPO REMINDER: IMAGING ONCE CARE 09/24/25 09:23 Completed NPO [NOTHING BY MOUTH] DIETARY 09/24/25 Lunch Ordered ED IV/MEDIPORT/POWERPORT .ONCE EMERGENCY 09/24/25 09:21 Active C. DIFFICILE ONCE LAB 09/24/25 11:40 Received CBC W/ AUTO DIFF Stat LAB 09/24/25 09:45 Completed COMPREHENSIVE METABOLIC PANEL Stat LAB 09/24/25 09:45 Completed COVID [SARS COV-2 RNA RAPID DEB] Stat LAB 09/24/25 09:35 Completed FLU A & B MOLECULAR [FLU A/B MOLECULAR] Stat LAB 09/24/25 09:35 Completed H. PYLORI STOOL AG Stat LAB 09/24/25 11:40 Completed LIPASE Stat LAB 09/24/25 09:45 Completed OVA AND PARASITES EXAM Stat LAB 09/24/25 11:40 Received ROTAVIRUS,STOOL Stat LAB 09/24/25 11:40 Received STOOL CULTURE Stat LAB 09/24/25 11:40 Results URINALYSIS C & S IF INDICATED Stat LAB 09/24/25 11:40 Completed URINE CULTURE Stat LAB 09/24/25 11:40 Received 0.9 % Sodium Chloride [Saline Flush] Meds 09/24/25 09:21 Active 1 syr IVF PRN PRN Acetaminophen Meds 09/24/25 10:45 Discontinued 1,000 mg in 100 ml IV ONCE Cefepime 2 gm/D5w [Maxipime 2 gm/50 ml D5w] Meds 09/24/25 11:30 Discontinued 2 gm in 50 ml IV ONCE Doxycycline Hyclate Inj [Doxy-100] 100 mg Meds 09/24/25 11:06 Discontinued 0.9 % Sodium Chloride [Sodium Chloride 100Ml] 100 ml IV ONCE Iohexol [Omnipaque 350 mg/ml 100Ml] Meds 09/24/25 12:05 Discontinued 100 ml IVP ONCE ONE Metoclopramide HCl [Reglan] Meds 09/24/25 11:03 Discontinued 10 mg IVP ONCE STA Ondansetron HCl/Pf [Zofran Sdv] Meds 09/24/25 09:22 Discontinued 4 mg IVP ONCE STA Ringers Lactated Solution [Lactated Ringers] 1,000 ml Meds 09/24/25 09:21 Discontinued IV BOLUS CHEST, 1V AP ONLY Stat RADS 09/24/25 10:[address] ABDOMEN/PELVIS W CONTRAST Stat RADS 09/24/25 09:23 Completed Medications Generic Name Dose Route Start Last Admin Trade Name Freq PRN Reason Stop Dose Admin Sodium Chloride 1 syr 09/24/25 09:21 0.9% Sodium Chloride 10 Ml Disp.Syrin IVF PRN PRN To flush IV Discontinued Medications Generic Name Dose Route Start Last Admin Trade Name Freq PRN Reason Stop Dose Admin Lactated Ringer's 1,000 mls @ 1,000 mls/hr 09/24/25 09:21 09/24/25 10:05 Lactated Ringers IV 09/24/25 10:20 1,000 mls/hr BOLUS ONE Administration Acetaminophen 1,000 mg in 100 mls @ 400 mls/hr 09/24/25 10:45 09/24/25 11:02 Acetaminophen IV 09/24/25 10:59 400 mls/hr ONCE ONE Administration Doxycycline Hyclate 100 mg/ 100 mls @ 50 mls/hr 09/24/25 11:06 09/24/25 13:08 Sodium Chloride IV 09/24/25 13:05 50 mls/hr ONCE ONE Administration CEFEPIME 2 GM/D5W 2 gm in 50 mls @ 100 mls/hr 09/24/25 11:30 09/24/25 12:20 Maxipime 2 Gm/50 Ml D5w IV 09/24/25 11:59 100 mls/hr ONCE ONE Administration Iohexol 100 ml 09/24/25 12:05 09/24/25 12:05 Iohexol 350 Mg/Ml 100ml IVP 09/24/25 12:06 100 ml ONCE ONE Administration Metoclopramide HCl 10 mg 09/24/25 11:03 09/24/25 12:20 Metoclopramide Hcl 10 Mg/2 Ml IVP 09/24/25 11:04 10 mg ONCE STA Administration Ondansetron HCl 4 mg 09/24/25 09:22 09/24/25 10:04 Ondansetron Hcl/Pf 4 Mg/2 Ml Sdv IVP 09/24/25 09:23 4 mg ONCE STA Administration Vital Signs: Temp Pulse Resp BP Pulse Ox 09/24/25 09:21 97.0 F L 78 22 H 148/62 H 97 Discharge Plan Discharge Patient Disposition: PLACED OBSERVATION Discharge Problem: Anemia of chronic disease, Nausea vomiting and diarrhea, H. pylori infection, Colitis, Diverticulosis, Cyst of right kidney, Pleural effusion, Campylobacter diarrhea Left lower lobe pneumonia Qualifiers: Pneumonia type: due to unspecified organism Qualified Code(s): J18.9 - Pneumonia, unspecified organism Hyperglycemia due to type 2 diabetes mellitus Qualifiers: Diabetes mellitus fpc insulin use: unspecified termite treater helper insulin use status Qualified Code(s): E11.65 - Type 2 diabetes mellitus with hyperglycemia UTI (urinary tract infection) Qualifiers: Urinary tract infection type: acute cystitis Hematuria presence: without hematuria Qualified Code(s): N30.00 - Acute cystitis without hematuria Did you review [place] CHIEF COUNSEL for ALL controlled substances?: Not Applicable ED Provider: EVELIN PLUMMER Condition: Stable
[2025-09-24 09:50] LABS: IMMATURE GRANULOCYTE # (AUTO) 0.0 (0.0-1.0); IMMATURE GRANULOCYTE % (AUTO) 0.4 % (0.0-5.0); RDW COEFFICIENT OF VARIATION 14.8 % (11.6-14.8)
[2025-09-24 10:02] LABS: SARS COV-2 RNA RAPID NAAT NEGATIVE (NEGATIVE)
[2025-09-24 10:03] LABS: MOLECULAR FLU A NEGATIVE BY NAAT (NEGATIVE); MOLECULAR FLU B NEGATIVE BY NAAT (NEGATIVE)
[2025-09-24 10:04] LABS: CREATININE 0.77 mg/dL (0.60-1.30)
[2025-09-24] MEDS: ZOFRAN SDV IVP STA (10:04)
[2025-09-24] MEDS: LACTATED RINGERS 1,000 ML IV ONE (10:05)
[2025-09-24] MEDS: ACETAMINOPHEN 1,000 MG/100 ML BAG IV ONE (11:02)
[2025-09-24] MEDS ORDERED: MAXIPIME 1 GM VIAL 1 GM in SODIUM CHLORIDE 50 ML IV ONE (11:06)
--- NOTE | 2025-09-24 11:07 | DI ---
EXAM: CHEST ONE VIEW, FRONTAL VIEW ONLY. HISTORY: Pneumonia. COMPARISON: 09/11/2025. FINDINGS: TAVR hardware and CABG hardware again noted. Heart enlarged but stable. Mitral annular calcifications again noted. Aortic atherosclerosis present. No vascular congestion. Stable left pleural effusion with left basilar consolidation. Mild interstitial prominence throughout the right lung again noted. No new opacity. No pneumothorax. No acute osseous abnormality. IMPRESSION: Stable left pleural effusion and left basilar consolidation.
[2025-09-24] MEDS: OMNIPAQUE 350 MG/ML 100ML IVP ONE (12:05)
[2025-09-24 12:10] LABS: H. PYLORI STOOL ANTIGEN POSITIVE (NEGATIVE)
[2025-09-24 12:12] LABS: GLUCOSE, URINE (UA) Negative (NEGATIVE); LEUKOCYTE ESTERASE ,URINE 1+ (NEGATIVE); URINE, BLOOD Trace-intact (NEGATIVE)
[2025-09-24 12:20] LABS: URINE RBC, MICROSCOPIC 0-2 (0-2)
[2025-09-24] MEDS: MAXIPIME 2 GM/50 ML D5W 2 GM/50 ML BAG IV ONE (12:20)
[2025-09-24] MEDS: REGLAN IVP STA (12:20)
--- NOTE | 2025-09-24 13:04 | CT ---
EXAM: CT ABDOMEN AND PELVIS WITH CONTRAST HISTORY: Acute abdominal pain. TECHNIQUE: CT acquisition of the abdomen and pelvis from the lower thorax through the pelvis following IV contrast administration. 2-D coronal and sagittal reformatted images were obtained from the axial source images. IV Contrast: Omnipaque 350 is administered per department protocol. Oral Contrast: None. CT Dose Reduction Techniques Performed: Yes. COMPARISON: Abdomen and pelvis CT of 06/21/2025. FINDINGS: Lower Thorax: There is moderate pleural fluid collection on the left similar to the prior. There is compressive atelectasis and dependent atelectasis and less likely infiltrate lower lung on the left. This is also seen along the inferior left upper lung. Mild atelectasis in the dependent lower lung on the right. Heart is upper limits of normal to mildly prominent without pericardial fluid. There is mitral valve calcification or surgical change with midline sternotomy.. Esophageal varices are prominent. The visualized esophagus is normal with small hiatal hernia. Findings are similar. Liver: Sclerotic appearance of the liver with lobular contour. A well-defined focal hepatic mass is not seen. Biliary: Gallbladder may be mildly distended. There is no well-defined internal filling defect or abnormality. The common bile duct does not appear greatly distended. Pancreas: Pancreas appears to be within normal limits. Spleen: Spleen is mildly prominent at 13.8 cm. No significant abnormal finding. Adrenals: No mass. Kidneys/Ureters: Bilateral kidneys enhance symmetrically. There is no dominant mass seen bilaterally. There is a cyst posterior inferior kidney on the right 1.9 cm. This appears simple. No other definite focal renal abnormality. No intrarenal calculus or hydronephrosis. Bilateral ureters, as seen, appear to be within normal limits. There are phleboliths within the pelvis. GI Tract: Stomach is contracted and somewhat poorly evaluated though no focal well-defined abnormal finding is definitively is seen. If there is concern direct visualization is recommended. Small bowel demonstrates internal fluid without significant abnormal finding. No wall thickening or mass. There is contraction throughout the colon. Terminal ileum is normal. The appendix is not definitively seen though no secondary CT signs for appendicitis. Mild wall thickening of the colon cannot be excluded and colitis is Possible. Diverticulosis without focal diverticulitis. [id number] stool within the rectal vault without focal abnormal finding. Peritoneal Cavity: There is ascites which is [id number] very similar to the prior. No focal mass is seen. Retroperitoneum: No fluid collection. Lymph Nodes: There are numerous non enlarged mesenteric lymph nodes and a few within the gastrohepatic region which are upper limits of normal very similar to the prior without new adenopathy. Vasculature: Moderate to severe aortic atherosclerotic calcifications. No aortic or iliac aneurysm. Celiac, superior mesenteric, and inferior mesenteric arteries are grossly patent. Limited assessment of the portal and hepatic veins and IVC is unremarkable within limitations of the phase of IV contrast. There are calcifications at the origin of the branch vessels particularly the SMA and celiac and left renal artery which may cause at least some mild narrowing. Pelvis: Hysterectomy without definite pelvic abnormality. Bladder is contracted but does not demonstrate any significant focal abnormal finding. Bones/Soft Tissues: The bony structures demonstrate degenerative change throughout the spine with diffuse osteopenia. Schmorl's node in superior L2. No evidence to suggest acute fracture or dislocation. No lytic or blastic lesions. Mild diffuse fat stranding is seen in the subcutaneous tissues. Small fat- containing periumbilical hernia without complication. IMPRESSION: 1. Moderate pleural fluid collection on the left with compressive atelectasis. Infiltrate is felt less likely on the left but not excluded. 2. Findings of cirrhosis including cirrhotic appearance of the liver and splenic enlargement and varices particularly. 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 No hepatic lesion or mass. 3. Distention of the gallbladder nonspecific without other biliary abnormality. If there is concern ultrasound would be recommended. 4. Up to moderate ascites similar to the prior. 5. There is contraction of the colon. Some wall thickening throughout the colon cannot be excluded though this is underdistended. Mild diffuse colitis is not excluded. Diverticulosis without focal diverticulitis. Bowel throughout otherwise has a normal appearance. Appendix is not seen though no secondary CT signs for appendicitis. Moderate stool in the rectal vault. There may be hemorrhoids. No focal mass. If there is concern direct visualization is recommended. Stomach is also contracted some poorly evaluated though if there is concern direct visualization is recommended. 6. Benign-appearing cyst right kidney. No other renal or ureteral or bladder abnormality. Hysterectomy without pelvic abnormality. 7. Vascular calcification without aneurysm or dissection. Details and other incidental findings, as above. All CT scans are performed using dose optimization techniques as appropriate to the performed exam and include at least one of the following: Automated exposure control, adjustment of the mA and/or kV according to size, and the use of iterative reconstruction technique.
[2025-09-24] MEDS: DOXY-100 100 MG in SODIUM CHLORIDE 100ML 100 ML IV ONE (13:08)
[2025-09-24] MEDS: PROTONIX IVP ONE (14:32)
[2025-09-24] MEDS ORDERED: REGLAN IVP PRN (15:38)
[2025-09-24 16:07] VITALS: BMI 34.5
[2025-09-24] MEDS: LACTATED RINGERS 1,000 ML IV SCH (16:19)
[2025-09-24] MEDS ORDERED: PROTONIX PO SCH (17:10)
[2025-09-24] MEDS: MICRO-K CAP PO SCH (17:50)
[2025-09-24] MEDS: ELIQUIS PO SCH (20:28)
[2025-09-24] MEDS: PRILOSEC PO SCH (20:28)
[2025-09-24] MEDS: FLAGYL PO SCH (20:28)
[2025-09-24] MEDS: NADOLOL PO SCH (20:28)
[2025-09-24] MEDS: CRESTOR PO SCH (20:29)
[2025-09-24] MEDS: PEPTO-BISMOL CHEW PO SCH (20:29)
[2025-09-24] MEDS ORDERED: NADOLOL 40 MG PO SCH (21:00)
--- NOTE | 2025-09-24 21:30 | PCM ---
Date of Service Date Seen by Provider: 09/24/25 Time Seen by Provider: 15:30 Admit Day/Time Admission Date: 09/24/25 Admission Time: 13:30 Reason for Admission Chief Complaint: PNUMONIA,UTI,H PYLORI,CAMPYLOBACTER Hospital Provider Hospital Provider: JOEY ANDINO, [facility] [place] Primary Care Physician: JANNETH STACY MD History of Present Illness History of Present Illness: 84 yo female with pmh of cirrhosis, DM2, anemia, CHFpEF, CAD presented to the ER with 2 day history of n/v/d. States she began having diarrhea stools yesterday and then began having nausea/vomiting today. Denies any blood in stool or vomitus. Denies any fever that she knows of. Denies any other symptoms. Denies any sick contacts. Found to have positive H pylori screen as well as positive ca mpylobacter antigen. CT abd showing colitis. Cdiff collected and negative. Incidental finding of L lower lobe infiltrate. Patient denies cough, sob, chest pain or back pain. She was given zofran, reglan, protonix, cefepime, and doxycyline. Admitted to med/surg observation. Case Discussed With Case Discussed With: Patient's case was discussed with the ER Physicians, Dr. Alves. [facility] Medical History CAP (community acquired pneumonia) Would like repeat BMP and Mg++ in 1 weeks after discharge. S/p doxycycline and cefuroxime course; denies having respiratory symptoms. J18.9 - Pneumonia, unspecified organism (ICD-10) Myocardial infarction 12/29/16 I21.9 - Acute myocardial infarction, unspecified (ICD-10) Lumbar pain M54.5 - Low back pain (ICD-10) CAD (coronary artery disease) I25.10 - Atherosclerotic heart disease of [place] coronary artery without angina pectoris (ICD-10) Surgical History H/O: hemorrhoidectomy Z98.890 - Other specified postprocedural states (ICD-10) H/O colonoscopy with polypectomy Z98.890 - Other specified postprocedural states (ICD-10) Z86.010 - Personal history of colonic polyps (ICD-10) 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 - Presence of xenogenic heart valve (ICD-10) H/O coronary artery bypass surgery Z95.1 - Presence of aortocoronary bypass graft (ICD-10) H/O colectomy Z90.49 - Acquired absence of other specified parts of digestive tract (ICD- 10) History of cardiac cath Z98.890 - Other specified postprocedural states (ICD-10) endoscopy (03/04/19) Status post tonsillectomy Z90.89 - Acquired absence of other organs (ICD-10) Status post hysterectomy Z90.710 - Acquired absence of both cervix and uterus (ICD-10) Status post appendectomy Z90.49 - Acquired absence of other specified parts of digestive tract (ICD- 10) Family History Mother , overdose of medication No problems noted. FATHER , in his sleep CHF (congestive heart failure) BROTHER , Cancer Lung cancer BROTHER , heart failure Cancer BROTHER , cancer and substance abuse Cancer Social History Smoking and tobacco status: Never smoker Passive smoking exposure: No Second hand smoke exposure: No Alcohol intake: never Counseling given: No Substance use type: does not use Counseling given: No Aye/tenriism: NONE Agree to transfusion: Yes Adopted: No Caregiver/support person: No Foster care: No Household members: spouse Housing: house Marital status: M Lives independently: Yes Number of children: 3 Number of grandchildren: 3 Highest education level completed: high school graduate service: No Current occupational status: retired Current occupational exposures/hazards: No 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 Pets and animals: Yes (one old female dog) Leisure activites: other History of recent travel: No Sexually active: No Do you think of yourself as: straight/heterosexual Current gender identity: female Seatbelt use: always Drives intoxicated or rides with intoxicated charter driver: No Current diet type/program: regular Well-balanced diet: about half the time Caffeine: Yes Eating out: 1-3 times/week Reads food labels: sometimes During the past year weight has: remained stable Water heater temperature set < 120 degrees: Yes Working smoke detector in home: Yes Fire extinguisher in home: Yes Carbon monoxide detector in home: Yes Firearms in home: Yes What type of physical activity do you participate in?: none Physical activity functional status: independent ambulation How many days of moderate to strenuous exercise, like a brisk walk, did you do i n the last 7 days: 0 Allergies Allergies Allergy/AdvReac Type Severity Reaction Status Date / Time Penicillins Allergy Mild Hives Verified 09/11/25 13:44 hydromorphone HCl (From Allergy Flushing, Verified 09/11/25 13:44 Dilaudid) Nauseated, Dizzy iron Allergy Diarrhea Verified 09/11/25 13:44 Sulfa (Sulfonamide Allergy Unknown Verified 09/11/25 13:44 Antibiotics) morphine AdvReac jittery Verified 09/11/25 13:44 TAPE Allergy Mild Unknown Uncoded 09/11/25 13:44 Current Medications Home Medications Acetaminophen (Acetaminophen 325 Mg Tablet) 650 mg PO Q4H PRN PRN Reason: Mild Pain Apixaban (Apixaban 5 Mg Tab) 5 mg PO BID [facility] Last Admin: 09/24/25 20:28 Dose: 5 mg Azithromycin (Azithromycin 250 Mg Tablet) 500 mg PO DAILY [facility] Stop: 09/27/25 09:01 Bismuth Subsalicylate (Bismuth Subsalicylate 262 Mg Tab.Chew) 524 mg PO QID [facility] Stop: 10/08/25 17:01 Last Admin: 09/24/25 20:29 Dose: 524 mg Furosemide (Furosemide 20 Mg Tablet) 20 mg PO QDAC2 [facility] Lactated Ringer's (Lactated Ringers) 1,000 mls @ 75 mls/hr IV .[id number] [facility] Last Admin: 09/24/25 16:19 Dose: 75 mls/hr Insulin Glargine (Insulin Glargine,Hum.Rec.Anlog 100 Units/Ml) 20 unit SUBCUT DAILY [facility] Lidocaine (Lidocaine 5% Patch) 2 patch TP DAILY [facility] Metoclopramide HCl (Metoclopramide Hcl 10 Mg/2 Ml) 5 mg IVP Q6H PRN PRN Reason: Nausea / Vomiting Metronidazole (Metronidazole 250 Mg Tablet) 500 mg PO QID [facility] Stop: 10/08/25 17:01 Last Admin: 09/24/25 20:28 Dose: 500 mg Nadolol (Nadolol 20 Mg Tablet) 40 mg PO BEDTIME [facility] Last Admin: 09/24/25 20:28 Dose: 40 mg Omeprazole (Omeprazole 20 Mg Capsule.Dr) 20 mg PO BIDAC2 [facility] Stop: 10/08/25 06:01 Last Admin: 09/24/25 20:28 Dose: 20 mg Ondansetron HCl (Ondansetron Hcl/Pf 4 Mg/2 Ml Sdv) 4 mg IVP Q6H PRN PRN Reason: Nausea / Vomiting Potassium Chloride (Potassium Chloride 10 Meq Capsule.Er) 10 meq PO DAILYWM2 [facility] Last Admin: 09/24/25 17:50 Dose: 10 meq Rosuvastatin Calcium (Rosuvastatin Calcium 10 Mg Tablet) 40 mg PO BEDTIME [facility] Last Admin: 09/24/25 20:29 Dose: 40 mg Sodium Chloride (0.9% Sodium Chloride 10 Ml Disp.Syrin) 1 syr IVF PRN PRN PRN Reason: To flush IV apixaban 5 mg tablet (Eliquis) 5 mg PO BID 30 days #60 tab-caps 04/21/19 [Rx Confirmed 09/24/25] nitroglycerin 0.4 mg sublingual tablet 0.4 mg sublingual PRN chest pain #60 tab-caps 03/21/23 [Rx Confirmed 09/24/25] lancets 30 gauge (Sealed Delica Plus Lancet) #100 ea 02/11/24 [Rx Confirmed 09/24/25] pen needle, diabetic 31 gauge x 3/16" (BD Ultra-Fine Mini Pen Needle) #200 ea 11/24/24 [Rx Confirmed 09/24/25] blood sugar diagnostic (Artomatixuch Ultra Test strips) #100 strips 11/25/24 [Rx Confirmed 09/24/25] lidocaine 5 % topical patch 2 patch topical QDAY #30 ea 03/19/25 [Rx Confirmed 09/24/25] albuterol sulfate 2.5 mg/0.5 mL solution for nebulization 2.5 mg (0.5 mL) inhalation 3-4XD PRN shortness of breath or wheezing #30 ea 04/20/25 [Rx Confirmed 09/24/25] nebulizer accessories #1 ea 04/20/25 [Rx Confirmed 09/24/25] nebulizer and compressor #1 ea 04/20/25 [Rx Confirmed 09/24/25] diclofenac sodium 1 % topical gel (Arthritis Pain (diclofenac)) 2 g topical QID PRN Arthritis pain 04/30/25 [History Confirmed 09/24/25] furosemide 20 mg tablet (Lasix) 20 mg PO QAM #30 tabs 07/09/25 [Rx Confirmed 09/24/25] potassium chloride 10 mEq capsule,extended release 10 meq PO QDAY #30 caps 07/09/25 [Rx Confirmed 09/24/25] insulin degludec 200 unit/mL (3 mL) subcutaneous pen (Tresiba FlexTouch U-200 insulin) 20 unit subcut .after breakfast 09/11/25 [History Confirmed 09/24/25] nadolol 40 mg tablet 40 mg PO BEDTIME 09/24/25 [History Confirmed 09/24/25] rosuvastatin 40 mg tablet 40 mg PO BEDTIME 09/24/25 [History Confirmed 09/24/25] triamcinolone acetonide 0.1 % topical cream 1 applic topical BID PRN rash 09/24/25 [History Confirmed 09/24/25] Opioid Naive vs. Tolerant Does Patient Take Opioids?: No Is Patient Opioid Naive?: Yes What is Opioid Naive?: *Opioid Naive implies the patient is not already taking opioids or not chronically receiving opioids on a daily basis. *PRN dosing is not "usually" associated with tolerance. *Patients are at higher risk of over-sedation and aspiration. Is Patient Opioid Tolerant?: No What is Opioid Tolerant?: *Opioid Tolerance implies less than the expected response to an opioid. *Acquired tolerance is defined by the patient taking 60mg of oral morphine daily (or equianalgesic dose of another opioid) for 1 week or more. *Often associated with chronic pain. *May take more than usual dose to achieve desired pain control. Review of Systems Constitutional: Reports No symptoms Head: Reports Normocephalic Eyes: Reports No symptoms Ears: Reports No symptoms Nose: Reports No symptoms Mouth: Reports No symptoms Throat: Reports No symptoms Cardiovascular: Reports No symptoms Respiratory: Reports No symptoms Gastrointestinal: Reports Nausea, Vomiting and Diarrhea Genitourinary: Reports No Symptoms Musculoskeletal: Reports No symptoms Endocrine: Reports No symptoms Hematology: Reports No symptoms Immunology: Reports No symptoms Neurological: Reports No symptoms Psychiatric: Reports No symptoms Physical examination Most Recent Vital Signs: Most Recent Vital Signs Temperature 98.2 F 09/24/25 20:48 Temperature Source Temporal Artery Scan 09/24/25 20:48 Temperature Source Infrared 09/24/25 09:21 Pulse Rate 79 09/24/25 20:48 Respiratory Rate 18 09/24/25 20:48 Blood Pressure 137/52 L 09/24/25 20:48 Blood Pressure Mean 80 09/24/25 20:48 Blood Pressure Left Arm 148/84 09/24/25 15:10 Blood Pressure Location Left Arm 09/24/25 20:48 Blood Pressure Position Supine 09/24/25 20:48 O2 Sat by Pulse Oximetry 95 09/24/25 20:48 Oxygen Delivery Method Nasal Cannula 09/24/25 21:00 Oxygen Flow Rate 2 09/24/25 20:48 Height 5 ft 4 in 09/24/25 15:10 Weight 91.3 kg 09/24/25 15:10 Telemetry Type Remote Telemetry 09/24/25 19:00 Telemetry Monitoring Started 09/24/25 19:00 Telemetry Heart Rate 93 09/24/25 19:00 Telemetry SPO2 94 09/13/25 01:00 EKG OK Interval 0.22 H 09/24/25 19:00 EKG QRS Interval 0.08 09/24/25 19:00 Telemetry Strip Reading SR WITH 1ST DEGREE AVB 09/24/25 19:00 Appearance: Positive No Apparent Distress, Alert and Oriented x3 and Ill- Appearing Skin: Positive Warm and Other (pale) HEENT: Positive Normocephalic and PERRLA Neck: Positive Supple and Midline Trachea Chest/Lungs: Positive Symmetrical With Equal Breath Sounds, Clear to Auscultation Bilaterally and Good Air Movement all 4 Lung Lu Heart: Positive RRR and Pulses Normal GI/: Positive Soft, Nontender, Bowel Sounds Normal, No Distention and No Organomegaly Musculoskeletal: Positive Not Examined Extremities: Positive Edema (chronic +2 pitting), Intact Peripheral Pulses, Stable Joints Without Laxity and Good ROM in All Joints Neurological: Positive Sensation Intact, Motor intact, Reflexes Intact, Alert, Oriented and Other (generalized weakness) Labs This Visit Labs This Visit: Labs This Visit 09/24/25 09/24/25 09/24/25 09:35 09:45 11:40 WBC 7.75 RBC 3.79 L Hgb 10.5 L Hct 35.4 L MCV 93.4 MCH 27.7 MCHC 29.7 L RDW Coeff of [place] 14.8 Plt Count 140 Immature Gran % (Auto) 0.4 Neut % (Auto) 90.9 H Lymph % (Auto) 4.1 L [place] % (Auto) 3.5 Eos % (Auto) 1.0 Baso % (Auto) 0.1 Neut # (Auto) 7.0 H Lymph # (Auto) 0.3 L [place] # (Auto) 0.3 L Eos # (Auto) 0.1 Baso # (Auto) 0.0 Immature Gran # (Auto) 0.0 Sodium 141.1 Potassium 3.55 Chloride 105.8 Carbon Dioxide 25.8 Anion Gap 13.05 BUN 13.6 Creatinine 0.77 Estimated GFR (MDRD) 71.00 BUN/Creatinine Ratio 17.66 Glucose 192.3 H Calcium 10.29 H Total Bilirubin 1.10 AST 66.9 H ALT 31.3 Alkaline Phosphatase 96.7 Total Protein 7.94 Albumin 3.82 Globulin 4.12 Albumin/Globulin Ratio 0.92 Lipase 282.4 Urine Color Yellow Urine Clarity Cloudy Urine pH 7.0 Ur Specific [place] 1.020 Urine Protein 2+ H Urine Glucose (UA) Negative Urine Ketones Negative Urine Blood Trace-intact H Urine Nitrite Negative Urine Bilirubin Negative Urine Urobilinogen 0.2 Ur Leukocyte Esterase 1+ H Urine Microscopic RBC 0-2 Urine Microscopic WBC 5-10 Ur Squamous Epith Cells 2-5 Stool H. pylori Ag Positive Influ A Molecular Assay Negative by naat Influ B Molecular Assay Negative by naat SARS CoV-2 RNA Rapid DEB Negative Microbiology This Visit 09/24/25 11:40 Stool C. difficile DNA Amplification - Final 09/24/25 11:40 Stool Stool Culture - Preliminary Imaging Imaging: EXAM: CT ABDOMEN AND PELVIS WITH CONTRAST HISTORY: Acute abdominal pain. TECHNIQUE: CT acquisition of the abdomen and pelvis from the lower thorax through the pelvis following IV contrast administration. 2-D coronal and sagittal reformatted images were obtained from the axial source images. IV Contrast: Omnipaque 350 is administered per department protocol. Oral Contrast: None. CT Dose Reduction Techniques Performed: Yes. COMPARISON: Abdomen and pelvis CT of 06/21/2025. FINDINGS: Lower Thorax: There is moderate pleural fluid collection on the left similar to the prior. There is compressive atelectasis and dependent atelectasis and less likely infiltrate lower lung on the left. This is also seen along the inferior left upper lung. Mild atelectasis in the dependent lower lung on the right. Heart is upper limits of normal to mildly prominent without pericardial fluid. There is mitral valve calcification or surgical change with midline sternotomy.. Esophageal varices are prominent. The visualized esophagus is normal with small hiatal hernia. Findings are similar. Liver: Sclerotic appearance of the liver with lobular contour. A well-defined focal hepatic mass is not seen. Biliary: Gallbladder may be mildly distended. There is no well-defined internal filling defect or abnormality. The common bile duct does not appear greatly distended. Pancreas: Pancreas appears to be within normal limits. Spleen: Spleen is mildly prominent at 13.8 cm. No significant abnormal finding. Adrenals: No mass. Kidneys/Ureters: Bilateral kidneys enhance symmetrically. There is no dominant mass seen bilaterally. There is a cyst posterior inferior kidney on the right 1.9 cm. This appears simple. No other definite focal renal abnormality. No intrarenal calculus or hydronephrosis. Bilateral ureters, as seen, appear to be within normal limits. There are phleboliths within the pelvis. GI Tract: Stomach is contracted and somewhat poorly evaluated though no focal well-defined abnormal finding is definitively is seen. If there is concern direct visualization is recommended. Small bowel demonstrates internal fluid without significant abnormal finding. No wall thickening or mass. There is contraction throughout the colon. Terminal ileum is normal. The appendix is not definitively seen though no secondary CT signs for appendicitis. Mild wall thickening of the colon cannot be excluded and colitis is Possible. Diverticulosis without focal diverticulitis. [id number] stool within the rectal vault without focal abnormal finding. Peritoneal Cavity: There is ascites which is [id number] very similar to the prior. No focal mass is seen. Retroperitoneum: No fluid collection. Lymph Nodes: There are numerous non enlarged mesenteric lymph nodes and a few within the gastrohepatic region which are upper limits of normal very similar to the prior without new adenopathy. Vasculature: Moderate to severe aortic atherosclerotic calcifications. No aortic or iliac aneurysm. Celiac, superior mesenteric, and inferior mesenteric arteries are grossly patent. Limited assessment of the portal and hepatic veins and IVC is unremarkable within limitations of the phase of IV contrast. There are calcifications at the origin of the branch vessels particularly the SMA and celiac and left renal artery which may cause at least some mild narrowing. Pelvis: Hysterectomy without definite pelvic abnormality. Bladder is contracted but does not demonstrate any significant focal abnormal finding. Bones/Soft Tissues: The bony structures demonstrate degenerative change throughout the spine with diffuse osteopenia. Schmorl's node in superior L2. No evidence to suggest acute fracture or dislocation. No lytic or blastic lesions. Mild diffuse fat stranding is seen in the subcutaneous tissues. Small fat- containing periumbilical hernia without complication. IMPRESSION: 1. Moderate pleural fluid collection on the left with compressive atelectasis. Infiltrate is felt less likely on the left but not excluded. 2. Findings of cirrhosis including cirrhotic appearance of the liver and splenic enlargement and varices particularly. 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 No hepatic lesion or mass. 3. Distention of the gallbladder nonspecific without other biliary abnormality. If there is concern ultrasound would be recommended. 4. Up to moderate ascites similar to the prior. 5. There is contraction of the colon. Some wall thickening throughout the colon cannot be excluded though this is underdistended. Mild diffuse colitis is not excluded. Diverticulosis without focal diverticulitis. Bowel throughout otherwise has a normal appearance. Appendix is not seen though no secondary CT signs for appendicitis. Moderate stool in the rectal vault. There may be hemorrhoids. No focal mass. If there is concern direct visualization is recommended. Stomach is also contracted some poorly evaluated though if there is concern direct visualization is recommended. 6. Benign-appearing cyst right kidney. No other renal or ureteral or bladder abnormality. Hysterectomy without pelvic abnormality. 7. Vascular calcification without aneurysm or dissection. Details and other incidental findings, as above. Review Statement Review Statement: I have independently reviewed and interpreted the labs/EKGs/imaging that were ordered by the ER provider. I have reviewed all outside records that are available currently in our EMR including imaging/notes/labs from previous visits. Plan Plan: 1. Acute colitis due to campylobacter and H pylori - azith to cover campylobacter, bismuth, flagyl, prilosec, and tetracycline for H pylori, clear liquid diet, LR@75mL/hr until intake improves, zofran and reglan Q6H prn for nausea 2. Distended gallbladder - no RUQ tenderness, recommend outpatient US once resolution of #1 3. Pneumonia - noted on CT scan, no s/sx, white count normal, likely viral 4. Cirrhosis w/ ascites - chronic, similar appearance on CT scan, continue lasix 5. DM2 - diabetic diet when advanced, accuchecks Q6H, continue insulin 6. Afib - chronic, continue home medications DVT Prophylaxis: Eliquis Time Spent: Greater than 80 minutes spent with patient, 50% of the time spent with this patient was devoted to counseling and coordination of care. [facility] minutes spent discussing advance care planning. Disposition: Admit to: Med/Surg Onservation. Discussed Plan of Care with Dr. Acevedo. Medications Medication Orders: Medications Ordered Category Date Time Status 0.9 % Sodium Chloride [Saline Flush] Meds 09/24/25 09:21 Active 1 syr IVF PRN PRN Acetaminophen [Tylenol] Meds 09/24/25 15:38 Active 650 mg PO Q4H PRN Apixaban [Eliquis] Meds 09/24/25 21:00 Active 5 mg PO BID Azithromycin [Zithromax] Meds 09/25/25 17:00 Active 500 mg PO DAILY Bismuth Subsalicylate [Pepto-Bismol Chew] Meds 09/24/25 21:00 Active 524 mg PO QID Furosemide [Lasix Tab] Meds 09/25/25 06:00 Active 20 mg PO QDAC2 Insulin Glargine,Hum.rec.anlog [Lantus] Meds 09/25/25 09:00 Active 20 unit SUBCUT DAILY Lidocaine Patch [Lidoderm 5 % Patch] Meds 09/25/25 09:00 Active 2 patch TP DAILY Metoclopramide HCl [Reglan] Meds 09/24/25 15:38 Active 5 mg IVP Q6H PRN Metronidazole [Flagyl] Meds 09/24/25 21:00 Active 500 mg PO QID Nadolol Meds 09/24/25 21:00 Active 40 mg PO BEDTIME Omeprazole [Prilosec] Meds 09/24/25 21:00 Active 20 mg PO BIDAC2 Ondansetron HCl/Pf [Zofran Sdv] Meds 09/24/25 15:38 Active 4 mg IVP Q6H PRN Potassium Chloride [Micro-K Cap] Meds 09/24/25 17:30 Active 10 meq PO DAILYWM2 Ringers Lactated Solution [Lactated Ringers] 1,000 ml Meds 09/24/25 16:00 Active IV 75 mls/hr Rosuvastatin Calcium [Crestor] Meds 09/24/25 21:00 Active 40 mg PO BEDTIME
[2025-09-25] MEDS: TYLENOL PO PRN (01:20)
[2025-09-25] MEDS: LASIX TAB PO SCH (05:07)
[2025-09-25 05:39] LABS: IMMATURE GRANULOCYTE # (AUTO) 0.0 (0.0-1.0); IMMATURE GRANULOCYTE % (AUTO) 0.2 % (0.0-5.0); RDW COEFFICIENT OF VARIATION 15.2 % (11.6-14.8)
[2025-09-25 05:52] LABS: CREATININE 0.84 mg/dL (0.60-1.30)
[2025-09-25] MEDS: LANTUS SUBCUT SCH (08:57)
[2025-09-25] MEDS: LIDODERM 5 % PATCH TP SCH (08:58)
[2025-09-25] MEDS ORDERED: LASIX TAB PO SCH (09:00)
--- NOTE | 2025-09-25 11:25 | PCM.PROG ---
Date/Time Seen Date Seen by Provider: 09/25/25 Time Seen by Provider: 09:00 Provider [facility] Chief Complaint Chief Complaint: PNUMONIA,UTI,H PYLORI,CAMPYLOBACTER Subjective Subjective: Patient resting in bed on exam today. Patient reports that she tolerating the liquid diet better today. Reports eating alok crackers this morning. Patient reports ambulating to the bathroom. Patient reports loose stool this morning. Reports stool was dark this morning, believes its due to the bismuth. Patient denies chest pain, SOB, abdominal pain.. Patient still requiring o2. Tolerating treatment well. Objective Appearance: Positive Well-appearing, Well-nourished, No Apparent Distress and Alert and Oriented x3 Chest/Lungs: Positive Symmetrical With Equal Breath Sounds and Rales Heart: Positive RRR and Pulses Normal; Negative Rub, Murmur, Irregular Rhythm, Tachycardia, Bracycardia, Abnormal Pulses, Gallop, No S3 Auscultated or No S4 Auscultated GI/: Positive Soft, Nontender, Bowel Sounds Normal, No Distention and No Organomegaly; Negative Tender, Mass, Bowel Sounds Hypoactive, Bowel Sounds Hyperactive, Hepatomegaly, Splenomegaly, Guarding, Hernias, Rigidity, Rebound Tenderness or Abdominal Aorta Not Palpable Musculoskeletal: Positive Instability (Patient feels shes improving but not at baseline strength. ) Neurological: Positive Sensation Intact, Motor intact, Reflexes Intact, Cranial Nerves Intact, Alert, Oriented and Muscle Strength 5/5 in Upper and Lower Extremities Bilaterally Vital Signs Vital Signs: Vital Signs: Last 24 Hours 09/24/25 15:10 09/24/25 15:10 09/24/25 15:21 Temperature 98.1 F Temperature Source Temporal Artery Scan Pulse Rate 97 Respiratory Rate 16 Blood Pressure Blood Pressure Mean Blood Pressure Left Arm 148/84 Blood Pressure Location Blood Pressure Position Supine O2 Sat by Pulse Oximetry 91 L Oxygen Delivery Method Room Air Room Air Oxygen Flow Rate Height 5 ft 4 in Weight 91.3 kg Telemetry Type Remote Telemetry Telemetry Monitoring Started Telemetry Heart Rate 94 Telemetry SPO2 EKG MO Interval 0.20 EKG QRS Interval 0.09 Telemetry Strip Reading NSR with PVC's 09/24/25 16:00 09/24/25 17:00 09/24/25 17:39 Temperature Temperature Source Pulse Rate Respiratory Rate Blood Pressure Blood Pressure Mean Blood Pressure Left Arm Blood Pressure Location Blood Pressure Position O2 Sat by Pulse Oximetry Oxygen Delivery Method Room Air Room Air Room Air Oxygen Flow Rate Height Weight Telemetry Type Telemetry Monitoring Telemetry Heart Rate Telemetry SPO2 EKG MO Interval EKG QRS Interval Telemetry Strip Reading 09/24/25 17:40 09/24/25 19:00 09/24/25 19:00 Temperature 99.1 F Temperature Source Oral Pulse Rate 92 Respiratory Rate 18 Blood Pressure 143/65 H Blood Pressure Mean 91 Blood Pressure Left Arm Blood Pressure Location Left Arm Blood Pressure Position Supine O2 Sat by Pulse Oximetry 90 L Oxygen Delivery Method Room Air Room Air Oxygen Flow Rate Height Weight Telemetry Type Remote Telemetry Telemetry Monitoring Started Telemetry Heart Rate 93 Telemetry SPO2 EKG MO Interval 0.22 H EKG QRS Interval 0.08 Telemetry Strip Reading SR WITH 1ST DEGREE AVB 09/24/25 19:15 09/24/25 20:00 09/24/25 20:48 Temperature 98.2 F Temperature Source Temporal Artery Scan Pulse Rate 79 Respiratory Rate 20 18 Blood Pressure 137/52 L Blood Pressure Mean 80 Blood Pressure Left Arm Blood Pressure Location Left Arm Blood Pressure Position Supine O2 Sat by Pulse Oximetry 95 Oxygen Delivery Method Room Air Room Air Nasal Cannula Oxygen Flow Rate 2 Height Weight Telemetry Type Telemetry Monitoring Telemetry Heart Rate Telemetry SPO2 EKG MO Interval EKG QRS Interval Telemetry Strip Reading 09/24/25 21:00 09/24/25 21:58 09/24/25 22:00 Temperature Temperature Source Pulse Rate Respiratory Rate Blood Pressure Blood Pressure Mean Blood Pressure Left Arm Blood Pressure Location Blood Pressure Position O2 Sat by Pulse Oximetry 97 Oxygen Delivery Method Nasal Cannula Nasal Cannula Nasal Cannula Oxygen Flow Rate 2 Height Weight Telemetry Type Telemetry Monitoring Telemetry Heart Rate Telemetry SPO2 EKG MO Interval EKG QRS Interval Telemetry Strip Reading 09/24/25 23:00 09/25/25 00:00 09/25/25 01:00 Temperature Temperature Source Pulse Rate Respiratory Rate Blood Pressure Blood Pressure Mean Blood Pressure Left Arm Blood Pressure Location Blood Pressure Position O2 Sat by Pulse Oximetry Oxygen Delivery Method Nasal Cannula Nasal Cannula Nasal Cannula Oxygen Flow Rate Height Weight Telemetry Type Telemetry Monitoring Telemetry Heart Rate Telemetry SPO2 EKG MO Interval EKG QRS Interval Telemetry Strip Reading 09/25/25 01:00 09/25/25 01:19 09/25/25 02:00 Temperature 100.4 F H Temperature Source Temporal Artery Scan Pulse Rate 63 Respiratory Rate 18 Blood Pressure 117/57 L Blood Pressure Mean 77 Blood Pressure Left Arm Blood Pressure Location Left Arm Blood Pressure Position Supine O2 Sat by Pulse Oximetry 94 L Oxygen Delivery Method Nasal Cannula Nasal Cannula Oxygen Flow Rate 2 Height Weight Telemetry Type Remote Telemetry Telemetry Monitoring Continues Telemetry Heart Rate 68 Telemetry SPO2 EKG MO Interval 0.23 H EKG QRS Interval 0.07 Telemetry Strip Reading SR with 1st degree AVB 09/25/25 02:00 09/25/25 02:03 09/25/25 03:00 Temperature 98.5 F Temperature Source Oral Pulse Rate Respiratory Rate Blood Pressure Blood Pressure Mean Blood Pressure Left Arm Blood Pressure Location Blood Pressure Position O2 Sat by Pulse Oximetry Oxygen Delivery Method Nasal Cannula Nasal Cannula Nasal Cannula Oxygen Flow Rate 2 Height Weight Telemetry Type Telemetry Monitoring Telemetry Heart Rate Telemetry SPO2 EKG MO Interval EKG QRS Interval Telemetry Strip Reading 09/25/25 04:00 09/25/25 04:49 09/25/25 04:50 Temperature 97.7 F Temperature Source Temporal Artery Scan Pulse Rate 63 Respiratory Rate 18 Blood Pressure 115/63 Blood Pressure Mean 80 Blood Pressure Left Arm Blood Pressure Location Left Arm Blood Pressure Position Supine O2 Sat by Pulse Oximetry 94 L Oxygen Delivery Method Nasal Cannula Nasal Cannula Nasal Cannula Oxygen Flow Rate 2 Height Weight Telemetry Type Telemetry Monitoring Telemetry Heart Rate Telemetry SPO2 EKG MO Interval EKG QRS Interval Telemetry Strip Reading 09/25/25 05:24 09/25/25 05:40 09/25/25 07:00 Temperature Temperature Source Pulse Rate Respiratory Rate Blood Pressure Blood Pressure Mean Blood Pressure Left Arm Blood Pressure Location Blood Pressure Position O2 Sat by Pulse Oximetry 97 Oxygen Delivery Method Nasal Cannula Nasal Cannula Nasal Cannula Oxygen Flow Rate 2 Height Weight Telemetry Type Telemetry Monitoring Telemetry Heart Rate Telemetry SPO2 EKG MO Interval EKG QRS Interval Telemetry Strip Reading 09/25/25 07:00 09/25/25 08:00 09/25/25 08:30 Temperature Temperature Source Pulse Rate Respiratory Rate Blood Pressure Blood Pressure Mean Blood Pressure Left Arm Blood Pressure Location Blood Pressure Position O2 Sat by Pulse Oximetry Oxygen Delivery Method Nasal Cannula Room Air Oxygen Flow Rate Height Weight Telemetry Type Remote Telemetry Telemetry Monitoring Continues Telemetry Heart Rate 90 Telemetry SPO2 97 EKG MO Interval 0.24 H EKG QRS Interval 0.11 H Telemetry Strip Reading SR with 1st Degree AVB 09/25/25 09:00 09/25/25 10:00 09/25/25 10:00 Temperature 97.7 F Temperature Source Temporal Artery Scan Pulse Rate 64 Respiratory Rate 18 Blood Pressure 108/62 Blood Pressure Mean 77 Blood Pressure Left Arm Blood Pressure Location Left Arm Blood Pressure Position Supine O2 Sat by Pulse Oximetry 96 Oxygen Delivery Method Nasal Cannula Nasal Cannula Nasal Cannula Oxygen Flow Rate 2 Height Weight Telemetry Type Telemetry Monitoring Telemetry Heart Rate Telemetry SPO2 EKG MO Interval EKG QRS Interval Telemetry Strip Reading 09/25/25 10:05 Temperature Temperature Source Pulse Rate Respiratory Rate Blood Pressure Blood Pressure Mean Blood Pressure Left Arm Blood Pressure Location Blood Pressure Position O2 Sat by Pulse Oximetry 94 L Oxygen Delivery Method Nasal Cannula Oxygen Flow Rate 1 Height Weight Telemetry Type Telemetry Monitoring Telemetry Heart Rate Telemetry SPO2 EKG MO Interval EKG QRS Interval Telemetry Strip Reading Lab Results Lab Results: Lab Results: Last 24 Hours 09/25/25 09/24/25 04:49 11:40 WBC 4.68 RBC 3.15 L Hgb 8.6 L Hct 29.7 L MCV 94.3 MCH 27.3 MCHC 29.0 L RDW Coeff of [place] 15.2 H Plt Count 108 L Immature Gran % (Auto) 0.2 Neut % (Auto) 80.3 H Lymph % (Auto) 12.2 [place] % (Auto) 6.0 Eos % (Auto) 0.9 Baso % (Auto) 0.4 Neut # (Auto) 3.8 Lymph # (Auto) 0.6 [place] # (Auto) 0.3 L Eos # (Auto) 0.0 Baso # (Auto) 0.0 Immature Gran # (Auto) 0.0 Sodium 138.1 Potassium 3.41 L Chloride 108.3 H Carbon Dioxide 25.4 Anion Gap 7.81 BUN 12.8 Creatinine 0.84 Estimated GFR (MDRD) 65.00 BUN/Creatinine Ratio 15.23 Glucose 110.5 H D Calcium 9.67 Total Bilirubin 0.88 AST 39.7 H D ALT 22.4 Alkaline Phosphatase 69.7 D Total Protein 6.47 Albumin 3.08 L Globulin 3.39 Albumin/Globulin Ratio 0.90 Urine Color Yellow Urine Clarity Cloudy Urine pH 7.0 Ur Specific Arp 1.020 Urine Protein 2+ H Urine Glucose (UA) Negative Urine Ketones Negative Urine Blood Trace-intact H Urine Nitrite Negative Urine Bilirubin Negative Urine Urobilinogen 0.2 Ur Leukocyte Esterase 1+ H Urine Microscopic RBC 0-2 Urine Microscopic WBC 5-10 Ur Squamous Epith Cells 2-5 Stool H. pylori Ag Positive Additional Comments Additional Comments: I have independently reviewed and interpreted the labs/EKGs/imaging ordered during this hospital stay. I have reviewed outside records that are available in our EMR that pertain to medical stay including imaging/notes/labs from previous visits. Active Medications Active Medications: Medications Generic Name Dose Route Start Last Admin Trade Name Freq PRN Reason Stop Dose Admin Acetaminophen 650 mg 09/24/25 15:38 09/25/25 01:20 Acetaminophen 325 Mg Tablet PO 650 mg Q4H PRN Administration Mild Pain Apixaban 5 mg 09/24/25 21:00 09/25/25 08:58 Apixaban 5 Mg Tab PO 5 mg BID YANET Administration Azithromycin 500 mg 09/25/25 17:00 Azithromycin 250 Mg Tablet PO 09/27/25 09:01 DAILY YANET Bismuth Subsalicylate 524 mg 09/24/25 21:00 09/25/25 08:58 Bismuth Subsalicylate 262 Mg Tab.Chew PO 10/08/25 17:01 524 mg QID YANET Administration Furosemide 20 mg 09/25/25 06:00 09/25/25 05:07 Furosemide 20 Mg Tablet PO 20 mg QDAC2 YANET Administration Lactated Ringer's 1,000 mls @ 75 mls/hr 09/24/25 16:00 09/25/25 06:01 Lactated Ringers IV Not Given .[id number] YANET Insulin Glargine 20 unit 09/25/25 09:00 09/25/25 08:57 Insulin Glargine,Hum.Rec.Anlog 100 Units/Ml SUBCUT 20 unit DAILY YANET Administration Lidocaine 2 patch 09/25/25 09:00 09/25/25 08:58 Lidocaine 5% Patch TP 2 patch DAILY YANET Administration Metoclopramide HCl 5 mg 09/24/25 15:38 Metoclopramide Hcl 10 Mg/2 Ml IVP Q6H PRN Nausea / Vomiting Metronidazole 500 mg 09/24/25 21:00 09/25/25 08:58 Metronidazole 250 Mg Tablet PO 10/08/25 17:01 500 mg QID YANET Administration Nadolol 40 mg 09/24/25 21:00 09/24/25 20:28 Nadolol 20 Mg Tablet PO 40 mg BEDTIME YANET Administration Omeprazole 20 mg 09/24/25 21:00 09/25/25 05:07 Omeprazole 20 Mg Capsule. PO 10/08/25 06:01 20 mg BIDAC2 YANET Administration Ondansetron HCl 4 mg 09/24/25 15:38 Ondansetron Hcl/Pf 4 Mg/2 Ml Sdv IVP Q6H PRN Nausea / Vomiting Potassium Chloride 10 meq 09/24/25 17:30 09/25/25 08:58 Potassium Chloride 10 Meq Capsule.Er PO 10 meq DAILYWM2 YANET Administration Rosuvastatin Calcium 40 mg 09/24/25 21:00 09/24/25 20:29 Rosuvastatin Calcium 10 Mg Tablet PO 40 mg BEDTIME YANET Administration Sodium Chloride 1 syr 09/24/25 09:21 0.9% Sodium Chloride 10 Ml Disp.Syrin IVF PRN PRN To flush IV Plan Plan: 1. Acute colitis due to campylobacter and H pylori: -Continue azithromycin to cover campylobacter, bismuth, flagyl, prilosec. Pharmacy reports tetracycline this afternoon and we'll continue treatment for H pylori -clear liquid diet. Will advance to soft diet -LR@75mL/hr until intake improves -zofran and reglan Q6H prn for nausea 2. Distended gallbladder: -no RUQ tenderness -recommend outpatient US once discharged. 3. Pneumonia: -noted on CT scan - white count normal -Patient in no distress. WBC WNL 4. Cirrhosis w/ ascites: -chronic, similar appearance on CT scan -continue lasix as prescribed 5. DM2: -diabetic diet when advanced -accuchecks Q6H -continue insulin 6. [place] fibrillation: -chronic, continue home medications 7. Decreased hemoglobin: -Will order occult stool -Decrease in hemoglobin likely secondary to hemodilution DVT Prophylaxis: Eliquis Time Spent: Greater than 80 minutes spent with patient, 50% of the time spent with this patient was devoted to counseling and coordination of care. [facility] minutes spent discussing advance care planning. Disposition: Will attempt to advance diet, pending possible discharge tomorrow. Admit to: Med/Surg Onservation. Discussed Plan of Care with Dr. Acevedo. Review Statement Review Statement: I have personally discussed and reviewed the patient's visit/currently labs/imaging/decision making with Dr. Acevedo, my supervising attending. Greater that 50 minutes spent with patient, 50% of the time spent with this patient was devoted to counseling and coordination of care.
[2025-09-25] MEDS: K-DUR PO ONE (12:31)
[2025-09-25 16:29] LABS: OCCULT BLOOD SAMPLE 1 POSITIVE (NEGATIVE)
[2025-09-25 16:30] LABS: OCCULT BLOOD SAMPLE 2 NO SPECIMEN RECEIVED (NEGATIVE); OCCULT BLOOD SAMPLE 3 NO SPECIMEN RECEIVED (NEGATIVE)
[2025-09-25] MEDS: [UNRECOGNIZED DRUG - OTHER] PO SCH (18:28)
[2025-09-25] MEDS: ZITHROMAX PO SCH (18:28)
[2025-09-25] MEDS: IMODIUM A-D PO STA (22:33)
[2025-09-26 05:23] LABS: IMMATURE GRANULOCYTE # (AUTO) 0.0 (0.0-1.0); IMMATURE GRANULOCYTE % (AUTO) 0.4 % (0.0-5.0); RDW COEFFICIENT OF VARIATION 15.0 % (11.6-14.8)
[2025-09-26 05:38] LABS: CREATININE 0.72 mg/dL (0.60-1.30)
--- NOTE | 2025-09-26 10:57 | PCM.PROG ---
Date/Time Seen Date Seen by Provider: 09/26/25 Time Seen by Provider: 09:45 Provider Provider: UZIEL OAKLEY, [facility] Chief Complaint Chief Complaint: PNUMONIA,UTI,H PYLORI,CAMPYLOBACTER Subjective Subjective: Patient examined while resting in bed. She denies any nausea or vomiting; however, reports 4-5 episodes of non-bloody diarrhea throughout the night. Hgb is stable. She reports she has felt more SOA and is using oxygen at 2L per [place], although she is seen laying flat in the bed. She requests to stay another night in the hospital due to SOA and episodes of diarrhea. She is requiring minimal assistance with toileting. 2+ pitting edema noted to BLE. Patient reports, "they've been that way for awhile". Will stop fluids due to possible fluid overload. Objective Appearance: Positive Alert and Oriented x3 and Ill-Appearing Chest/Lungs: Positive Symmetrical With Equal Breath Sounds and Good Air Movement all 4 Lung Lu; Negative Rales, Rhonci or Wheezes Heart: Positive RRR and Pulses Normal GI/: Positive Soft, Nontender, Bowel Sounds Normal and Other (large ascitic abdomen) Musculoskeletal: Positive Not Examined Neurological: Positive Sensation Intact, Motor intact, Alert and Oriented Additional Findings: 2+ BLE edema Vital Signs Vital Signs: Vital Signs: Last 24 Hours 09/25/25 11:00 09/25/25 12:00 09/25/25 13:00 Temperature Temperature Source Pulse Rate Respiratory Rate Blood Pressure Blood Pressure Mean Blood Pressure Location Blood Pressure Position O2 Sat by Pulse Oximetry Oxygen Delivery Method Nasal Cannula Nasal Cannula Oxygen Flow Rate Telemetry Type Remote Telemetry Telemetry Monitoring Continues Telemetry Heart Rate 64 EKG MO Interval 0.24 H EKG QRS Interval 0.09 EKG QT Interval Telemetry Strip Reading SR with 1st Degree AVB and PVC 09/25/25 13:00 09/25/25 13:53 09/25/25 14:00 Temperature Temperature Source Pulse Rate Respiratory Rate Blood Pressure Blood Pressure Mean Blood Pressure Location Blood Pressure Position O2 Sat by Pulse Oximetry 94 L Oxygen Delivery Method Room Air Room Air Room Air Oxygen Flow Rate Telemetry Type Telemetry Monitoring Telemetry Heart Rate EKG MO Interval EKG QRS Interval EKG QT Interval Telemetry Strip Reading 09/25/25 14:00 09/25/25 15:00 09/25/25 16:00 Temperature 98.1 F Temperature Source Temporal Artery Scan Pulse Rate 65 Respiratory Rate 16 Blood Pressure 123/61 Blood Pressure Mean 81 Blood Pressure Location Left Arm Blood Pressure Position Supine O2 Sat by Pulse Oximetry 93 L Oxygen Delivery Method Room Air Room Air Room Air Oxygen Flow Rate Telemetry Type Telemetry Monitoring Telemetry Heart Rate EKG MO Interval EKG QRS Interval EKG QT Interval Telemetry Strip Reading 09/25/25 17:00 09/25/25 18:00 09/25/25 18:00 Temperature 98.3 F Temperature Source Temporal Artery Scan Pulse Rate 76 Respiratory Rate 16 Blood Pressure 120/60 Blood Pressure Mean 80 Blood Pressure Location Left Arm Blood Pressure Position Supine O2 Sat by Pulse Oximetry 93 L Oxygen Delivery Method Room Air Nasal Cannula Nasal Cannula Oxygen Flow Rate 1 Telemetry Type Telemetry Monitoring Telemetry Heart Rate EKG MO Interval EKG QRS Interval EKG QT Interval Telemetry Strip Reading 09/25/25 18:04 09/25/25 19:00 09/25/25 19:00 Temperature Temperature Source Pulse Rate Respiratory Rate Blood Pressure Blood Pressure Mean Blood Pressure Location Blood Pressure Position O2 Sat by Pulse Oximetry 96 Oxygen Delivery Method Nasal Cannula Nasal Cannula Oxygen Flow Rate 1 Telemetry Type Remote Telemetry Telemetry Monitoring Continues Telemetry Heart Rate 72 EKG MO Interval 0.19 EKG QRS Interval 0.13 H EKG QT Interval 0.43 H Telemetry Strip Reading SR w/ 1st Degree AV Block and occasional unifocal PVC's 09/25/25 20:00 09/25/25 20:00 09/25/25 20:00 Temperature Temperature Source Pulse Rate Respiratory Rate Blood Pressure Blood Pressure Mean Blood Pressure Location Blood Pressure Position O2 Sat by Pulse Oximetry Oxygen Delivery Method Nasal Cannula Nasal Cannula Room Air Oxygen Flow Rate 1 Telemetry Type Telemetry Monitoring Telemetry Heart Rate EKG MO Interval EKG QRS Interval EKG QT Interval Telemetry Strip Reading 09/25/25 21:00 09/25/25 22:00 09/25/25 22:00 Temperature 98.2 F Temperature Source Temporal Artery Scan Pulse Rate 76 Respiratory Rate 18 Blood Pressure 128/68 Blood Pressure Mean 88 Blood Pressure Location Right Arm Blood Pressure Position Sitting O2 Sat by Pulse Oximetry 95 Oxygen Delivery Method Nasal Cannula Nasal Cannula Nasal Cannula Oxygen Flow Rate 1 Telemetry Type Telemetry Monitoring Telemetry Heart Rate EKG MO Interval EKG QRS Interval EKG QT Interval Telemetry Strip Reading 09/25/25 22:57 09/25/25 23:57 09/26/25 01:00 Temperature Temperature Source Pulse Rate Respiratory Rate Blood Pressure Blood Pressure Mean Blood Pressure Location Blood Pressure Position O2 Sat by Pulse Oximetry Oxygen Delivery Method Nasal Cannula Nasal Cannula Nasal Cannula Oxygen Flow Rate Telemetry Type Telemetry Monitoring Telemetry Heart Rate EKG MO Interval EKG QRS Interval EKG QT Interval Telemetry Strip Reading 09/26/25 01:00 09/26/25 01:58 09/26/25 01:58 Temperature 99.4 F Temperature Source Pulse Rate 66 Respiratory Rate 18 Blood Pressure 131/60 Blood Pressure Mean 83 Blood Pressure Location Left Arm Blood Pressure Position Supine O2 Sat by Pulse Oximetry 96 Oxygen Delivery Method Nasal Cannula Nasal Cannula Oxygen Flow Rate 2 Telemetry Type Remote Telemetry Telemetry Monitoring Continues Telemetry Heart Rate 67 EKG MO Interval 0.20 EKG QRS Interval 0.10 EKG QT Interval 0.65 H Telemetry Strip Reading Sinus Rhythm W/ Unifocal PVC's 09/26/25 02:49 09/26/25 03:58 09/26/25 04:33 Temperature 99.5 F Temperature Source Temporal Artery Scan Pulse Rate 73 Respiratory Rate 18 Blood Pressure 123/75 Blood Pressure Mean 91 Blood Pressure Location Right Arm Blood Pressure Position Supine O2 Sat by Pulse Oximetry 98 Oxygen Delivery Method Nasal Cannula Nasal Cannula Nasal Cannula Oxygen Flow Rate 2 Telemetry Type Telemetry Monitoring Telemetry Heart Rate EKG MO Interval EKG QRS Interval EKG QT Interval Telemetry Strip Reading 09/26/25 05:00 09/26/25 05:55 09/26/25 07:00 Temperature Temperature Source Pulse Rate Respiratory Rate Blood Pressure Blood Pressure Mean Blood Pressure Location Blood Pressure Position O2 Sat by Pulse Oximetry Oxygen Delivery Method Nasal Cannula Nasal Cannula Nasal Cannula Oxygen Flow Rate Telemetry Type Telemetry Monitoring Telemetry Heart Rate EKG MO Interval EKG QRS Interval EKG QT Interval Telemetry Strip Reading 09/26/25 08:00 09/26/25 10:20 Temperature Temperature Source Pulse Rate Respiratory Rate Blood Pressure Blood Pressure Mean Blood Pressure Location Blood Pressure Position O2 Sat by Pulse Oximetry 94 L Oxygen Delivery Method Nasal Cannula Nasal Cannula Oxygen Flow Rate 1 Telemetry Type Telemetry Monitoring Telemetry Heart Rate EKG MO Interval EKG QRS Interval EKG QT Interval Telemetry Strip Reading Lab Results Lab Results: Lab Results: Last 24 Hours 09/26/25 09/25/25 04:30 16:15 WBC 5.36 RBC 3.13 L Hgb 8.7 L Hct 29.6 L MCV 94.6 MCH 27.8 MCHC 29.4 L RDW Coeff of Tawanna 15.0 H Plt Count 110 L Immature Gran % (Auto) 0.4 Neut % (Auto) 74.0 Lymph % (Auto) 13.4 [place] % (Auto) 8.8 Eos % (Auto) 2.8 Baso % (Auto) 0.6 Neut # (Auto) 4.0 Lymph # (Auto) 0.7 [place] # (Auto) 0.5 Eos # (Auto) 0.2 Baso # (Auto) 0.0 Immature Gran # (Auto) 0.0 Sodium 136.5 Potassium 3.69 Chloride 106.0 Carbon Dioxide 25.9 Anion Gap 8.29 BUN 11.1 Creatinine 0.72 Estimated GFR (MDRD) 77.00 BUN/Creatinine Ratio 15.41 Glucose 105.5 Calcium 9.69 Magnesium 1.81 Total Bilirubin 0.74 AST 40.6 H ALT 21.1 Alkaline Phosphatase 73.4 Total Protein 6.45 Albumin 2.97 L Globulin 3.48 Albumin/Globulin Ratio 0.85 Stl Occult Blood (IFOB) Positive Stool Occult Blood #2 No specimen received Stool Occult Blood #3 No specimen received Additional Comments Additional Comments: I have independently reviewed and interpreted the labs/EKGs/imaging ordered during this hospital stay. I have reviewed outside records that are available in our EMR that pertain to medical stay including imaging/notes/labs from previous visits. Active Medications Active Medications: Medications Generic Name Dose Route Start Last Admin Trade Name Freq PRN Reason Stop Dose Admin Acetaminophen 650 mg 09/24/25 15:38 09/26/25 08:31 Acetaminophen 325 Mg Tablet PO 650 mg Q4H PRN Administration Mild Pain Apixaban 5 mg 09/24/25 21:00 09/26/25 08:20 Apixaban 5 Mg Tab PO 5 mg BID YANET Administration Azithromycin 500 mg 09/25/25 17:00 09/26/25 08:20 Azithromycin 250 Mg Tablet PO 09/27/25 09:01 500 mg DAILY YANET Administration Bismuth Subsalicylate 524 mg 09/24/25 21:00 09/26/25 08:20 Bismuth Subsalicylate 262 Mg Tab.Chew PO 10/08/25 17:01 524 mg QID YANET Administration Furosemide 20 mg 09/25/25 06:00 09/26/25 05:34 Furosemide 20 Mg Tablet PO 20 mg QDAC2 YANET Administration Lactated Ringer's 1,000 mls @ 75 mls/hr 09/24/25 16:00 09/26/25 10:09 Lactated Ringers IV 75 mls/hr .[id number] YANET Administration Insulin Glargine 20 unit 09/25/25 09:00 09/26/25 10:06 Insulin Glargine,Hum.Rec.Anlog 100 Units/Ml SUBCUT 20 unit DAILY YANET Administration Lidocaine 2 patch 09/25/25 09:00 09/26/25 08:24 Lidocaine 5% Patch TP 2 patch DAILY YANET Administration Metoclopramide HCl 5 mg 09/24/25 15:38 Metoclopramide Hcl 10 Mg/2 Ml IVP Q6H PRN Nausea / Vomiting Metronidazole 500 mg 09/24/25 21:00 09/26/25 08:19 Metronidazole 250 Mg Tablet PO 10/08/25 17:01 500 mg QID YANET Administration Nadolol 40 mg 09/24/25 21:00 09/25/25 20:20 Nadolol 20 Mg Tablet PO 40 mg BEDTIME YANET Administration Omeprazole 20 mg 09/24/25 21:00 09/26/25 05:33 Omeprazole 20 Mg Capsule.Dr PO 10/08/25 06:01 20 mg BIDAC2 YANET Administration Ondansetron HCl 4 mg 09/24/25 15:38 Ondansetron Hcl/Pf 4 Mg/2 Ml Sdv IVP Q6H PRN Nausea / Vomiting Potassium Chloride 10 meq 09/24/25 17:30 09/26/25 08:19 Potassium Chloride 10 Meq Capsule.Er PO 10 meq DAILYWM2 YANET Administration Rosuvastatin Calcium 40 mg 09/24/25 21:00 09/25/25 20:20 Rosuvastatin Calcium 10 Mg Tablet PO 40 mg BEDTIME YANET Administration Sodium Chloride 1 syr 09/24/25 09:21 09/26/25 05:34 0.9% Sodium Chloride 10 Ml Disp.Syrin IVF 1 syr PRN PRN Administration To flush IV Tetracycline HCl 500 mg 09/25/25 14:00 09/26/25 08:19 Tetracycline Hcl 250 Mg Capsule PO 01/02/26 09:01 500 mg QID YANET Administration Plan Plan: Plan: 1. Acute colitis due to campylobacter and H pylori - azith to cover campylobacter, bismuth, flagyl, prilosec, and tetracycline for H pylori, advanced to soft and bite sizesd diet, zofran and reglan Q6H prn for nausea 2. Distended gallbladder - no RUQ tenderness, recommend outpatient US once resolution of #1 3. Pneumonia - noted on CT scan, no s/sx, white count normal, likely viral 4. Cirrhosis w/ ascites - chronic, similar appearance on CT scan, continue lasix 5. DM2 - diabetic diet when advanced, accuchecks Q6H, continue insulin 6. Afib - chronic, continue home medications 7. Positive occult stool- could be false positive due to taking prilosec at time of collection. Recommend outpatient colonoscopy if patient is willing. Risk factors to be discussed due to age 8. BLE edema- fluids stopped. Nursing staff to encourage elevation of BLE. Continue lasix Review Statement Review Statement: I have personally discussed and reviewed the patient's visit/currently lab s/imaging/decision making with Dr. Acevedo, my supervising attending. Greater that 50 minutes spent with patient, 50% of the time spent with this patient was devoted to counseling and coordination of care.
[2025-09-26] MEDS: IMODIUM A-D PO ONE (21:29)
[2025-09-27 05:14] LABS: IMMATURE GRANULOCYTE # (AUTO) 0.0 (0.0-1.0); IMMATURE GRANULOCYTE % (AUTO) 0.0 % (0.0-5.0); RDW COEFFICIENT OF VARIATION 15.0 % (11.6-14.8)
[2025-09-27 05:41] LABS: CREATININE 0.71 mg/dL (0.60-1.30)
--- NOTE | 2025-09-27 11:42 | PCM.PROG ---
Date/Time Seen Date Seen by Provider: 09/27/25 Time Seen by Provider: 08:30 Provider Provider: ISAIAS ROSENBERG PA-C, [facility] Chief Complaint Chief Complaint: PNUMONIA,UTI,H PYLORI,CAMPYLOBACTER Subjective Subjective: Patient overall feels better but still having some LLQ tenderness and diarrhea stools. Hgb slowly trending down. Occult stool positive but likely due to colitis and hemorrhoids. Patient states they've been acting up since having so much diarrhea. Nursing has noted bleeding when wiping at times. Lives at home with her . At times uses a walker. Objective Appearance: Positive No Apparent Distress and Alert and Oriented x3 Chest/Lungs: Positive Symmetrical With Equal Breath Sounds, Clear to Auscultation Bilaterally and Good Air Movement all 4 Lung Lu; Negative Rales, Rhonci or Wheezes Heart: Positive RRR and Pulses Normal GI/: Positive Soft, Nontender, Bowel Sounds Normal and Other (large ascitic abdomen) Musculoskeletal: Positive Not Examined Neurological: Positive Sensation Intact, Motor intact, Cranial Nerves Intact, Alert, Oriented and Other (+generalized weakness ) Additional Findings: 2+ BLE edema, nonpitting Vital Signs Vital Signs: Vital Signs: Last 24 Hours 09/26/25 12:00 09/26/25 13:00 09/26/25 13:00 Temperature Temperature Source Pulse Rate Respiratory Rate Blood Pressure Blood Pressure Mean Blood Pressure Location Blood Pressure Position O2 Sat by Pulse Oximetry Oxygen Delivery Method Nasal Cannula Nasal Cannula Oxygen Flow Rate Fraction of Inspired Oxygen (FIO2) Telemetry Type Remote Telemetry Telemetry Monitoring Continues Telemetry Heart Rate 71 Telemetry SPO2 98 EKG MS Interval 0.14 EKG QRS Interval 0.09 Telemetry Strip Reading NSR 09/26/25 14:00 09/26/25 14:00 09/26/25 14:00 Temperature 97.5 F L Temperature Source Temporal Artery Scan Pulse Rate 65 Respiratory Rate 16 Blood Pressure 134/69 Blood Pressure Mean 90 Blood Pressure Location Right Arm Blood Pressure Position O2 Sat by Pulse Oximetry 98 96 Oxygen Delivery Method Nasal Cannula Nasal Cannula Nasal Cannula Oxygen Flow Rate 1 1 Fraction of Inspired Oxygen (FIO2) Telemetry Type Telemetry Monitoring Telemetry Heart Rate Telemetry SPO2 EKG MS Interval EKG QRS Interval Telemetry Strip Reading 09/26/25 15:00 09/26/25 16:00 09/26/25 17:00 Temperature Temperature Source Pulse Rate Respiratory Rate Blood Pressure Blood Pressure Mean Blood Pressure Location Blood Pressure Position O2 Sat by Pulse Oximetry Oxygen Delivery Method Nasal Cannula Nasal Cannula Nasal Cannula Oxygen Flow Rate Fraction of Inspired Oxygen (FIO2) Telemetry Type Telemetry Monitoring Telemetry Heart Rate Telemetry SPO2 EKG MS Interval EKG QRS Interval Telemetry Strip Reading 09/26/25 18:00 09/26/25 18:00 09/26/25 19:00 Temperature 97.5 F L Temperature Source Temporal Artery Scan Pulse Rate 68 Respiratory Rate 16 Blood Pressure 135/70 Blood Pressure Mean 91 Blood Pressure Location Right Arm Blood Pressure Position O2 Sat by Pulse Oximetry 96 Oxygen Delivery Method Nasal Cannula Nasal Cannula Nasal Cannula Oxygen Flow Rate 1 Fraction of Inspired Oxygen (FIO2) Telemetry Type Telemetry Monitoring Telemetry Heart Rate Telemetry SPO2 EKG MS Interval EKG QRS Interval Telemetry Strip Reading 09/26/25 19:00 09/26/25 19:57 09/26/25 20:00 Temperature Temperature Source Pulse Rate Respiratory Rate Blood Pressure Blood Pressure Mean Blood Pressure Location Blood Pressure Position O2 Sat by Pulse Oximetry Oxygen Delivery Method Nasal Cannula Nasal Cannula Oxygen Flow Rate Fraction of Inspired Oxygen (FIO2) 1 Telemetry Type Remote Telemetry Telemetry Monitoring Continues Telemetry Heart Rate 70 Telemetry SPO2 EKG MS Interval 0.18 EKG QRS Interval 0.09 Telemetry Strip Reading sr 09/26/25 20:00 09/26/25 21:00 09/26/25 21:39 Temperature 97.5 F L Temperature Source Temporal Artery Scan Pulse Rate 62 Respiratory Rate 18 Blood Pressure 140/82 Blood Pressure Mean 101 Blood Pressure Location Right Arm Blood Pressure Position Supine O2 Sat by Pulse Oximetry 97 Oxygen Delivery Method Nasal Cannula Nasal Cannula Nasal Cannula Oxygen Flow Rate 1 1 Fraction of Inspired Oxygen (FIO2) Telemetry Type Telemetry Monitoring Telemetry Heart Rate Telemetry SPO2 EKG MS Interval EKG QRS Interval Telemetry Strip Reading 09/26/25 22:00 09/26/25 22:43 09/26/25 23:57 Temperature Temperature Source Pulse Rate Respiratory Rate Blood Pressure Blood Pressure Mean Blood Pressure Location Blood Pressure Position O2 Sat by Pulse Oximetry Oxygen Delivery Method Nasal Cannula Nasal Cannula Nasal Cannula Oxygen Flow Rate Fraction of Inspired Oxygen (FIO2) Telemetry Type Telemetry Monitoring Telemetry Heart Rate Telemetry SPO2 EKG MS Interval EKG QRS Interval Telemetry Strip Reading 09/27/25 00:55 09/27/25 01:00 09/27/25 01:32 Temperature 97.1 F L Temperature Source Temporal Artery Scan Pulse Rate 59 L Respiratory Rate 18 Blood Pressure 141/66 H Blood Pressure Mean 91 Blood Pressure Location Right Arm Blood Pressure Position Supine O2 Sat by Pulse Oximetry 95 Oxygen Delivery Method Nasal Cannula Nasal Cannula Oxygen Flow Rate 1 Fraction of Inspired Oxygen (FIO2) Telemetry Type Remote Telemetry Telemetry Monitoring Continues Telemetry Heart Rate 60 Telemetry SPO2 EKG MS Interval 0.18 EKG QRS Interval 0.10 Telemetry Strip Reading SR 09/27/25 01:53 09/27/25 02:56 09/27/25 04:00 Temperature Temperature Source Pulse Rate Respiratory Rate Blood Pressure Blood Pressure Mean Blood Pressure Location Blood Pressure Position O2 Sat by Pulse Oximetry Oxygen Delivery Method Nasal Cannula Nasal Cannula Nasal Cannula Oxygen Flow Rate Fraction of Inspired Oxygen (FIO2) Telemetry Type Telemetry Monitoring Telemetry Heart Rate Telemetry SPO2 EKG MS Interval EKG QRS Interval Telemetry Strip Reading 09/27/25 05:00 09/27/25 05:16 09/27/25 05:20 Temperature 97.3 F L Temperature Source Temporal Artery Scan Pulse Rate 60 Respiratory Rate 16 Blood Pressure 131/63 Blood Pressure Mean 85 Blood Pressure Location Right Arm Blood Pressure Position Supine O2 Sat by Pulse Oximetry 95 Oxygen Delivery Method Nasal Cannula Nasal Cannula Nasal Cannula Oxygen Flow Rate 1 1 Fraction of Inspired Oxygen (FIO2) Telemetry Type Telemetry Monitoring Telemetry Heart Rate Telemetry SPO2 EKG MS Interval EKG QRS Interval Telemetry Strip Reading 09/27/25 05:48 09/27/25 07:00 09/27/25 08:00 Temperature Temperature Source Pulse Rate Respiratory Rate Blood Pressure Blood Pressure Mean Blood Pressure Location Blood Pressure Position O2 Sat by Pulse Oximetry Oxygen Delivery Method Nasal Cannula Nasal Cannula Nasal Cannula Oxygen Flow Rate Fraction of Inspired Oxygen (FIO2) Telemetry Type Telemetry Monitoring Telemetry Heart Rate Telemetry SPO2 EKG MS Interval EKG QRS Interval Telemetry Strip Reading 09/27/25 09:00 09/27/25 10:00 09/27/25 10:00 Temperature Temperature Source Pulse Rate Respiratory Rate Blood Pressure Blood Pressure Mean Blood Pressure Location Blood Pressure Position O2 Sat by Pulse Oximetry 97 Oxygen Delivery Method Nasal Cannula Nasal Cannula Nasal Cannula Oxygen Flow Rate 1 Fraction of Inspired Oxygen (FIO2) Telemetry Type Telemetry Monitoring Telemetry Heart Rate Telemetry SPO2 EKG MS Interval EKG QRS Interval Telemetry Strip Reading 09/27/25 10:00 09/27/25 11:00 Temperature 97.4 F L Temperature Source Temporal Artery Scan Pulse Rate 74 Respiratory Rate 18 Blood Pressure 116/60 Blood Pressure Mean 78 Blood Pressure Location Left Arm Blood Pressure Position O2 Sat by Pulse Oximetry 92 L Oxygen Delivery Method Room Air Room Air Oxygen Flow Rate Fraction of Inspired Oxygen (FIO2) Telemetry Type Telemetry Monitoring Telemetry Heart Rate Telemetry SPO2 EKG MS Interval EKG QRS Interval Telemetry Strip Reading Lab Results Lab Results: Lab Results: Last 24 Hours 09/27/25 04:39 WBC 4.17 L RBC 3.00 L Hgb 8.2 L Hct 28.6 L MCV 95.3 MCH 27.3 MCHC 28.7 L RDW Coeff of Tawanna 15.0 H Plt Count 104 L Immature Gran % (Auto) 0.0 Neut % (Auto) 64.2 Lymph % (Auto) 20.9 [place] % (Auto) 10.3 H Eos % (Auto) 4.1 Baso % (Auto) 0.5 Neut # (Auto) 2.7 Lymph # (Auto) 0.9 [place] # (Auto) 0.4 Eos # (Auto) 0.2 Baso # (Auto) 0.0 Immature Gran # (Auto) 0.0 Hypochromasia 1+ Anisocytosis Not present Sodium 136.4 Potassium 3.63 Chloride 104.1 Carbon Dioxide 27.9 Anion Gap 8.03 BUN 10.2 Creatinine 0.71 Estimated GFR (MDRD) 78.00 BUN/Creatinine Ratio 14.36 Glucose 97.2 Calcium 9.55 Magnesium 1.88 Total Bilirubin 0.64 AST 42.2 H ALT 18.8 Alkaline Phosphatase 69.6 Total Protein 6.11 L Albumin 2.80 L Globulin 3.31 Albumin/Globulin Ratio 0.84 Additional Comments Additional Comments: I have independently reviewed and interpreted the labs/EKGs/imaging ordered during this hospital stay. I have reviewed outside records that are available in our EMR that pertain to medical stay including imaging/notes/labs from previous visits. Active Medications Active Medications: Medications Generic Name Dose Route Start Last Admin Trade Name Freq PRN Reason Stop Dose Admin Acetaminophen 650 mg 09/24/25 15:38 09/26/25 21:19 Acetaminophen 325 Mg Tablet PO 650 mg Q4H PRN Administration Mild Pain Apixaban 5 mg 09/24/25 21:00 09/26/25 21:18 Apixaban 5 Mg Tab PO 5 mg On Hold: 09/27/25 08:06 BID YANET Administration Bismuth Subsalicylate 524 mg 09/24/25 21:00 09/27/25 08:17 Bismuth Subsalicylate 262 Mg Tab.Chew PO 10/08/25 17:01 524 mg QID YANET Administration Furosemide 20 mg 09/25/25 06:00 09/27/25 05:24 Furosemide 20 Mg Tablet PO 20 mg QDAC2 YANET Administration Insulin Glargine 20 unit 09/25/25 09:00 09/27/25 08:23 Insulin Glargine,Hum.Rec.Anlog 100 Units/Ml SUBCUT 20 unit DAILY YANET Administration Lidocaine 2 patch 09/25/25 09:00 09/27/25 08:18 Lidocaine 5% Patch TP 2 patch DAILY YANET Administration Metoclopramide HCl 5 mg 09/24/25 15:38 Metoclopramide Hcl 10 Mg/2 Ml IVP Q6H PRN Nausea / Vomiting Metronidazole 500 mg 09/24/25 21:00 09/27/25 08:18 Metronidazole 250 Mg Tablet PO 10/08/25 17:01 500 mg QID YANET Administration Nadolol 40 mg 09/24/25 21:00 09/26/25 21:18 Nadolol 20 Mg Tablet PO 40 mg BEDTIME YANET Administration Omeprazole 20 mg 09/24/25 21:00 09/27/25 05:24 Omeprazole 20 Mg Capsule.Dr PO 10/08/25 06:01 20 mg BIDAC2 YANET Administration Ondansetron HCl 4 mg 09/24/25 15:38 Ondansetron Hcl/Pf 4 Mg/2 Ml Sdv IVP Q6H PRN Nausea / Vomiting Potassium Chloride 10 meq 09/24/25 17:30 09/27/25 08:18 Potassium Chloride 10 Meq Capsule.Er PO 10 meq DAILYWM2 YANET Administration Rosuvastatin Calcium 40 mg 09/24/25 21:00 09/26/25 21:19 Rosuvastatin Calcium 10 Mg Tablet PO 40 mg BEDTIME YANET Administration Sodium Chloride 1 syr 09/24/25 09:21 09/26/25 05:34 0.9% Sodium Chloride 10 Ml Disp.Syrin IVF 1 syr PRN PRN Administration To flush IV Sodium Chloride 1 syr 09/26/25 13:00 09/27/25 05:24 0.9% Sodium Chloride 10 Ml Disp.Syrin IVF 1 syr Q8HR YANET Administration Tetracycline HCl 500 mg 09/25/25 14:00 09/27/25 08:17 Tetracycline Hcl 250 Mg Capsule PO 10/09/25 09:01 500 mg QID YANET Administration Plan Plan: Plan: 1. Acute colitis due to campylobacter and H pylori - azith to cover campylobacter, bismuth, flagyl, prilosec, and tetracycline for H pylori, advanced to soft and bite sized diet, zofran and reglan Q6H prn for nausea 2. Distended gallbladder - no RUQ tenderness, recommend outpatient US once resolution of #1 3. Pneumonia - noted on CT scan, no s/sx, white count normal, likely viral 4. Cirrhosis w/ ascites - chronic, similar appearance on CT scan, continue lasix 5. DM2 - diabetic diet when advanced, accuchecks Q6H, continue insulin 6. Afib - chronic, continue home medications 7. Positive occult stool- Likely due to colitis and hemorrhoids. Recommend outpatient colonoscopy if patient is willing. Risk factors to be discussed due to age 8. BLE edema- fluids stopped. Nursing staff to encourage elevation of BLE. Continue lasix Dispo: possible dc tomorrow if stools slow down and hgb is stable. Review Statement Review Statement: I have personally discussed and reviewed the patient's visit/currently labs/imaging/decision making with Dr. Acevedo, my supervising attending. Greater that 50 minutes spent with patient, 50% of the time spent with this patient was devoted to counseling and coordination of care.
[2025-09-28 05:48] LABS: IMMATURE GRANULOCYTE # (AUTO) 0.0 (0.0-1.0); IMMATURE GRANULOCYTE % (AUTO) 0.2 % (0.0-5.0); RDW COEFFICIENT OF VARIATION 14.8 % (11.6-14.8)
[2025-09-28 05:59] LABS: CREATININE 0.69 mg/dL (0.60-1.30)
[2025-09-28 08:44] LABS: RETICULOCYTE % 1.65 %; RETICULOCYTE HEMOGLOBIN 29.6
[2025-09-28 08:56] LABS: % IRON SATURATION 9.0 %
[2025-09-28] MEDS: ZOFRAN SDV IVP PRN (10:59)
--- NOTE | 2025-09-28 11:41 | PCM.PROG ---
Date/Time Seen Date Seen by Provider: 09/28/25 Time Seen by Provider: 08:30 Provider Provider: ISAIAS ROSENBERG PA-C, [facility] Chief Complaint Chief Complaint: PNUMONIA,UTI,H PYLORI,CAMPYLOBACTER Subjective Subjective: Patient states she's still feeling very weak, tires easily, and reports 10-12 stools in last 24 hours. Discussed the chart has not reflected that many stools and we need to have an accurate number when discharge planning. She does not feel well enough to go home today despite number of stools. Hgb improved today. Pt has ambulated hallways with nursing staff. States her feet are swollen but does not want extra lasix or to wear ronnie hose. Objective Appearance: Positive No Apparent Distress and Alert and Oriented x3 Chest/Lungs: Positive Symmetrical With Equal Breath Sounds, Clear to Auscultation Bilaterally and Good Air Movement all 4 Lung Lu; Negative Rales, Rhonci or Wheezes Heart: Positive RRR and Pulses Normal GI/: Positive Soft, Nontender, Bowel Sounds Normal and Other (large ascitic abdomen) Musculoskeletal: Positive Not Examined Neurological: Positive Sensation Intact, Motor intact, Cranial Nerves Intact, Alert, Oriented and Other (+generalized weakness ) Additional Findings: 2+ BLE edema, pitting Vital Signs Vital Signs: Vital Signs: Last 24 Hours 09/27/25 12:00 09/27/25 13:00 09/27/25 13:00 Temperature Temperature Source Pulse Rate Respiratory Rate Blood Pressure Blood Pressure Mean Blood Pressure Location Blood Pressure Position O2 Sat by Pulse Oximetry Oxygen Delivery Method Room Air Room Air Oxygen Flow Rate Fraction of Inspired Oxygen (FIO2) Height Weight Telemetry Type Remote Telemetry Telemetry Monitoring Continues Telemetry Heart Rate 76 Telemetry SPO2 EKG NH Interval 0.17 EKG QRS Interval 0.09 Telemetry Strip Reading NSR 09/27/25 14:00 09/27/25 14:00 09/27/25 14:00 Temperature 97.9 F Temperature Source Temporal Artery Scan Pulse Rate 73 Respiratory Rate 16 Blood Pressure 107/67 Blood Pressure Mean 80 Blood Pressure Location Left Arm Blood Pressure Position O2 Sat by Pulse Oximetry 94 L 97 Oxygen Delivery Method Room Air Room Air Room Air Oxygen Flow Rate Fraction of Inspired Oxygen (FIO2) Height Weight Telemetry Type Telemetry Monitoring Telemetry Heart Rate Telemetry SPO2 EKG NH Interval EKG QRS Interval Telemetry Strip Reading 09/27/25 15:00 09/27/25 16:00 09/27/25 17:00 Temperature Temperature Source Pulse Rate Respiratory Rate Blood Pressure Blood Pressure Mean Blood Pressure Location Blood Pressure Position O2 Sat by Pulse Oximetry Oxygen Delivery Method Room Air Room Air Room Air Oxygen Flow Rate Fraction of Inspired Oxygen (FIO2) Height Weight Telemetry Type Telemetry Monitoring Telemetry Heart Rate Telemetry SPO2 EKG NH Interval EKG QRS Interval Telemetry Strip Reading 09/27/25 18:00 09/27/25 19:00 09/27/25 19:00 Temperature Temperature Source Pulse Rate Respiratory Rate Blood Pressure Blood Pressure Mean Blood Pressure Location Blood Pressure Position O2 Sat by Pulse Oximetry Oxygen Delivery Method Room Air Room Air Oxygen Flow Rate Fraction of Inspired Oxygen (FIO2) Height Weight Telemetry Type Remote Telemetry Telemetry Monitoring Continues Telemetry Heart Rate 65 Telemetry SPO2 EKG NH Interval 0.20 EKG QRS Interval 0.12 H Telemetry Strip Reading sr 1st degree block bbb 09/27/25 19:11 09/27/25 19:58 09/27/25 20:00 Temperature Temperature Source Pulse Rate Respiratory Rate Blood Pressure Blood Pressure Mean Blood Pressure Location Blood Pressure Position O2 Sat by Pulse Oximetry Oxygen Delivery Method Room Air Room Air Room Air Oxygen Flow Rate Fraction of Inspired Oxygen (FIO2) 0 Height Weight Telemetry Type Telemetry Monitoring Telemetry Heart Rate Telemetry SPO2 EKG NH Interval EKG QRS Interval Telemetry Strip Reading 09/27/25 20:53 09/27/25 21:45 09/27/25 21:45 Temperature 98.0 F Temperature Source Tympanic Pulse Rate 67 Respiratory Rate 20 Blood Pressure 98/57 L Blood Pressure Mean 70 Blood Pressure Location Right Arm Blood Pressure Position Supine O2 Sat by Pulse Oximetry 90 L Oxygen Delivery Method Room Air Room Air Room Air Oxygen Flow Rate Fraction of Inspired Oxygen (FIO2) Height Weight Telemetry Type Telemetry Monitoring Telemetry Heart Rate Telemetry SPO2 EKG NH Interval EKG QRS Interval Telemetry Strip Reading 09/27/25 22:54 09/28/25 00:00 09/28/25 00:59 Temperature Temperature Source Pulse Rate Respiratory Rate Blood Pressure Blood Pressure Mean Blood Pressure Location Blood Pressure Position O2 Sat by Pulse Oximetry Oxygen Delivery Method Nasal Cannula Nasal Cannula Nasal Cannula Oxygen Flow Rate Fraction of Inspired Oxygen (FIO2) Height Weight Telemetry Type Telemetry Monitoring Telemetry Heart Rate Telemetry SPO2 EKG NH Interval EKG QRS Interval Telemetry Strip Reading 09/28/25 01:00 09/28/25 01:53 09/28/25 03:00 Temperature Temperature Source Pulse Rate Respiratory Rate Blood Pressure Blood Pressure Mean Blood Pressure Location Blood Pressure Position O2 Sat by Pulse Oximetry Oxygen Delivery Method Nasal Cannula Nasal Cannula Oxygen Flow Rate Fraction of Inspired Oxygen (FIO2) Height Weight Telemetry Type Remote Telemetry Telemetry Monitoring Continues Telemetry Heart Rate 65 Telemetry SPO2 96 EKG NH Interval 0.19 EKG QRS Interval 0.13 H Telemetry Strip Reading SR w/ BBB 09/28/25 03:43 09/28/25 05:00 09/28/25 05:00 Temperature Temperature Source Pulse Rate Respiratory Rate Blood Pressure Blood Pressure Mean Blood Pressure Location Blood Pressure Position O2 Sat by Pulse Oximetry 98 Oxygen Delivery Method Nasal Cannula Nasal Cannula Room Air Oxygen Flow Rate 1 Fraction of Inspired Oxygen (FIO2) Height Weight Telemetry Type Telemetry Monitoring Telemetry Heart Rate Telemetry SPO2 EKG NH Interval EKG QRS Interval Telemetry Strip Reading 09/28/25 05:37 09/28/25 05:46 09/28/25 07:00 Temperature 97.8 F Temperature Source Tympanic Pulse Rate 67 Respiratory Rate 24 H Blood Pressure 104/54 L Blood Pressure Mean 70 Blood Pressure Location Right Arm Blood Pressure Position Supine O2 Sat by Pulse Oximetry 91 L Oxygen Delivery Method Room Air Room Air Room Air Oxygen Flow Rate Fraction of Inspired Oxygen (FIO2) Height Weight Telemetry Type Telemetry Monitoring Telemetry Heart Rate Telemetry SPO2 EKG NH Interval EKG QRS Interval Telemetry Strip Reading 09/28/25 07:00 09/28/25 08:00 09/28/25 09:43 Temperature Temperature Source Pulse Rate Respiratory Rate Blood Pressure Blood Pressure Mean Blood Pressure Location Blood Pressure Position O2 Sat by Pulse Oximetry Oxygen Delivery Method Room Air Oxygen Flow Rate Fraction of Inspired Oxygen (FIO2) Height 5 ft 4 in Weight 91.3 kg Telemetry Type Remote Telemetry Telemetry Monitoring Continues Telemetry Heart Rate 61 Telemetry SPO2 92 L EKG NH Interval 0.16 EKG QRS Interval 0.08 Telemetry Strip Reading SR 09/28/25 10:00 Temperature Temperature Source Pulse Rate Respiratory Rate Blood Pressure Blood Pressure Mean Blood Pressure Location Blood Pressure Position O2 Sat by Pulse Oximetry Oxygen Delivery Method Room Air Oxygen Flow Rate Fraction of Inspired Oxygen (FIO2) Height Weight Telemetry Type Telemetry Monitoring Telemetry Heart Rate Telemetry SPO2 EKG NH Interval EKG QRS Interval Telemetry Strip Reading Lab Results Lab Results: Lab Results: Last 24 Hours 09/28/25 09/24/25 05:30 11:40 WBC 4.59 L RBC 3.20 L Hgb 8.8 L Hct 29.9 L MCV 93.4 MCH 27.5 MCHC 29.4 L RDW Coeff of Tawanna 14.8 Plt Count 120 L Immature Gran % (Auto) 0.2 Neut % (Auto) 63.9 Lymph % (Auto) 22.2 Burke % (Auto) 10.5 H Eos % (Auto) 2.8 Baso % (Auto) 0.4 Reticulocyte % (Auto) 1.65 Neut # (Auto) 2.9 Lymph # (Auto) 1.0 Burke # (Auto) 0.5 Eos # (Auto) 0.1 Baso # (Auto) 0.0 Immature Gran # (Auto) 0.0 Absolute Retic 0.0528 Retic Hgb Equivalent 29.6 Sodium 137.3 Potassium 3.59 Chloride 104.4 Carbon Dioxide 28.5 Anion Gap 7.99 BUN 10.6 Creatinine 0.69 Estimated GFR (MDRD) 81.00 BUN/Creatinine Ratio 15.36 Glucose 120.8 H Calcium 9.81 Magnesium 1.86 Iron 32.9 L TIBC 364 % Saturation 9 Ferritin 17.70 Total Bilirubin 0.66 AST 49.9 H ALT 22.0 Alkaline Phosphatase 74.0 Total Protein 6.59 Albumin 3.08 L Globulin 3.51 Albumin/Globulin Ratio 0.87 Stool Rotavirus Antigen Negative Additional Comments Additional Comments: I have independently reviewed and interpreted the labs/EKGs/imaging ordered during this hospital stay. I have reviewed outside records that are available in our EMR that pertain to medical stay including imaging/notes/labs from previous visits. Active Medications Active Medications: Medications Generic Name Dose Route Start Last Admin Trade Name Freq PRN Reason Stop Dose Admin Acetaminophen 650 mg 09/24/25 15:38 09/27/25 17:01 Acetaminophen 325 Mg Tablet PO 650 mg Q4H PRN Administration Mild Pain Apixaban 5 mg 09/24/25 21:00 09/26/25 21:18 Apixaban 5 Mg Tab PO 5 mg On Hold: 09/27/25 08:06 BID YANET Administration Bismuth Subsalicylate 524 mg 09/24/25 21:00 09/28/25 08:26 Bismuth Subsalicylate 262 Mg Tab.Chew PO 10/08/25 17:01 524 mg QID YANET Administration Furosemide 20 mg 09/25/25 06:00 09/28/25 05:13 Furosemide 20 Mg Tablet PO 20 mg QDAC2 YANET Administration Insulin Glargine 20 unit 09/25/25 09:00 09/28/25 08:55 Insulin Glargine,Hum.Rec.Anlog 100 Units/Ml SUBCUT 20 unit DAILY YANET Administration Lidocaine 2 patch 09/25/25 09:00 09/28/25 08:25 Lidocaine 5% Patch TP 2 patch DAILY YANET Administration Metoclopramide HCl 5 mg 09/24/25 15:38 Metoclopramide Hcl 10 Mg/2 Ml IVP Q6H PRN Nausea / Vomiting Metronidazole 500 mg 09/24/25 21:00 09/28/25 08:25 Metronidazole 250 Mg Tablet PO 10/08/25 17:01 500 mg QID YANET Administration Nadolol 40 mg 09/24/25 21:00 09/27/25 20:25 Nadolol 20 Mg Tablet PO 40 mg BEDTIME YANET Administration Omeprazole 20 mg 09/24/25 21:00 09/28/25 05:13 Omeprazole 20 Mg Capsule.Dr PO 10/08/25 06:01 20 mg BIDAC2 YANET Administration Ondansetron HCl 4 mg 09/24/25 15:38 09/28/25 10:59 Ondansetron Hcl/Pf 4 Mg/2 Ml Sdv IVP 4 mg Q6H PRN Administration Nausea / Vomiting Potassium Chloride 10 meq 09/24/25 17:30 09/28/25 08:25 Potassium Chloride 10 Meq Capsule.Er PO 10 meq DAILYWM2 YANET Administration Rosuvastatin Calcium 40 mg 09/24/25 21:00 09/27/25 20:26 Rosuvastatin Calcium 10 Mg Tablet PO 40 mg BEDTIME YANET Administration Sodium Chloride 1 syr 09/24/25 09:21 09/26/25 05:34 0.9% Sodium Chloride 10 Ml Disp.Syrin IVF 1 syr PRN PRN Administration To flush IV Sodium Chloride 1 syr 09/26/25 13:00 09/28/25 05:13 0.9% Sodium Chloride 10 Ml Disp.Syrin IVF 1 syr Q8HR YANET Administration Tetracycline HCl 500 mg 09/25/25 14:00 09/28/25 08:25 Tetracycline Hcl 250 Mg Capsule PO 10/09/25 09:01 500 mg QID YANET Administration Plan Plan: Plan: 1. Acute colitis due to campylobacter and H pylori - azith to cover campylobacter, bismuth, flagyl, prilosec, and tetracycline for H pylori, advanced to soft and bite sized diet, zofran and reglan Q6H prn for nausea 2. Distended gallbladder - no RUQ tenderness, recommend outpatient US once resolution of #1 3. Pneumonia - noted on CT scan, no s/sx, white count normal, likely viral 4. Cirrhosis w/ ascites - chronic, similar appearance on CT scan, continue lasix 5. DM2 - diabetic diet when advanced, accuchecks Q6H, continue insulin 6. Afib - chronic, continue home medications, holding eliquis due to anemia/blood in stool 7. Positive occult stool- Likely due to colitis and hemorrhoids. Recommend outpatient colonoscopy if patient is willing. Risk factors to be discussed due to age 8. BLE edema- fluids stopped. Nursing staff to encourage elevation of BLE. Continue lasix Dispo: possible dc tomorrow if stools slow down and hgb is stable. Review Statement Review Statement: I have personally discussed and reviewed the patient's visit/currently labs/imaging/decision making with Dr. Acevedo, my supervising attending. Greater that 50 minutes spent with patient, 50% of the time spent with this patient was devoted to counseling and coordination of care.
[2025-09-28] MEDS: LASIX IVP ONE (12:01)
[2025-09-28 14:11] LABS: OVA AND PARASITES EXAM Final report (.)
[2025-09-28 22:17] VITALS: PULSE 66; TEMP 97.9
[2025-09-29 05:01] VITALS: BP 120/63; RESP 20
[2025-09-29 05:19] LABS: IMMATURE GRANULOCYTE # (AUTO) 0.0 (0.0-1.0); IMMATURE GRANULOCYTE % (AUTO) 0.3 % (0.0-5.0); RDW COEFFICIENT OF VARIATION 15.0 % (11.6-14.8)
[2025-09-29 05:35] LABS: CREATININE 0.75 mg/dL (0.60-1.30)
[2025-09-29] MEDS: K-DUR PO ONE (09:34)
--- NOTE | 2025-09-29 11:10 | DCSUM ---
Admission Date Admission Date: 09/24/25 Discharge Date Discharge Date: 09/29/25 Admission Diagnosis Admission Diagnosis: 1. Acute colitis due to campylobacter and H pylori Discharge Diagnosis Discharge Diagnosis: 1. Acute colitis due to campylobacter and H pylori - improved 2. Distended gallbladder - no RUQ tenderness, recommend outpatient US once resolution of #1 3. Cirrhosis w/ ascites 4. DM2 5. Afib 6. Acute on chronic anemia - improved Hospital Provider Hospital Provider: ISAIAS ROSENBERG PA-C, [facility] Primary Care Physician Primary Care Physician: JANNETH STACY MD Summary of History and Physical Summary of History and Physical: 84 yo female with pmh of cirrhosis, DM2, anemia, CHFpEF, CAD presented to the ER with 2 day history of n/v/d. States she began having diarrhea stools yesterday and then began having nausea/vomiting today. Denies any blood in stool or vomitus. Denies any fever that she knows of. Denies any other symptoms. Denies any sick contacts. Found to have positive H pylori screen as well as positive campylobacter antigen. CT abd showing colitis. Cdiff collected and negative. Incidental finding of L lower lobe infiltrate. Patient denies cough, sob, chest pain or back pain. She was given zofran, reglan, protonix, cefepime, and doxycyline. Admitted to med/surg observation. Hospital Course Subjective: Patient finished azithromycin for campylobacter. Also started on tetracycline, pepto, prilosec, and flagyl for treatment of positive h pylori ag. O&P negative. C diff negative. CXR noted LLL infiltrate but ct a/p showing less likely infiltrate. Pt has a chronic effusion on that side with atelectasis. Patient overall did well, she continued to have loose stools but a reasonable amount. Renal function remained stable. She does have chronic diarrhea for which she's been referred to GI. Discussed she may continue to have some diarrhea on and off. Will complete 2 week course of treatment for h pylori. She did have some rectal/hemorrhoid bleeding and hgb trended down. Eliquis was held. Her bleeding has stopped. Hgb has been stable. Discussed holding until pcp follow up. Risks include cva. Patient understands. F/u with pcp, also GI apt made in Oct for f/u given acute colitis. Patient declines home health referral. Appearance: Pleasant, No Apparent Distress and Alert HEENT: MMM CVS: Other (RRR) Abdomen: Soft, Non-Tender, No Distention and Other Respiratory: No Accessory Muscle Use Extremities: Other (edema of lower ext, improved ) Vital Signs: Most Recent Vital Signs Temperature 97.9 F 09/29/25 05:00 Temperature Source Temporal Artery Scan 09/29/25 05:00 Temperature Source Infrared 09/24/25 09:21 Pulse Rate 66 09/29/25 05:00 Respiratory Rate 20 09/29/25 05:00 Blood Pressure 120/63 09/29/25 05:00 Blood Pressure Mean 82 09/29/25 05:00 Blood Pressure Left Arm 148/84 09/24/25 15:10 Blood Pressure Location Right Arm 09/29/25 05:00 Blood Pressure Position Supine 09/29/25 05:00 O2 Sat by Pulse Oximetry 96 09/29/25 10:00 Oxygen Delivery Method Room Air 09/29/25 10:00 Oxygen Flow Rate 1 09/28/25 05:00 Fraction of Inspired Oxygen (FIO2) 0 09/27/25 20:00 Height 5 ft 4 in 09/28/25 09:43 Weight 91.3 kg 09/28/25 09:43 Telemetry Type Remote Telemetry 09/29/25 07:00 Telemetry Monitoring Continues 09/29/25 07:00 Irregular Telemetry Rate (Approximate) 50-60 BPM 09/29/25 07:00 Telemetry Heart Rate 56 L 09/29/25 07:00 Telemetry SPO2 98 09/29/25 07:00 EKG VT Interval 0.25 H 09/29/25 07:00 EKG QRS Interval 0.08 09/29/25 07:00 EKG QT Interval 0.65 H 09/26/25 01:00 Telemetry Strip Reading SB w arrhythmia first degree AVB 09/29/25 07:00 Imaging: EXAM: CT ABDOMEN AND PELVIS WITH CONTRAST HISTORY: Acute abdominal pain. TECHNIQUE: CT acquisition of the abdomen and pelvis from the lower thorax through the pelvis following IV contrast administration. 2-D coronal and sagittal reformatted images were obtained from the axial source images. IV Contrast: Omnipaque 350 is administered per department protocol. Oral Contrast: None. CT Dose Reduction Techniques Performed: Yes. COMPARISON: Abdomen and pelvis CT of 06/21/2025. FINDINGS: Lower Thorax: There is moderate pleural fluid collection on the left similar to the prior. There is compressive atelectasis and dependent atelectasis and less likely infiltrate lower lung on the left. This is also seen along the inferior left upper lung. Mild atelectasis in the dependent lower lung on the right. Heart is upper limits of normal to mildly prominent without pericardial fluid. There is mitral valve calcification or surgical change with midline sternotomy.. Esophageal varices are prominent. The visualized esophagus is normal with small hiatal hernia. Findings are similar. Liver: Sclerotic appearance of the liver with lobular contour. A well-defined focal hepatic mass is not seen. Biliary: Gallbladder may be mildly distended. There is no well-defined internal filling defect or abnormality. The common bile duct does not appear greatly distended. Pancreas: Pancreas appears to be within normal limits. Spleen: Spleen is mildly prominent at 13.8 cm. No significant abnormal finding. Adrenals: No mass. Kidneys/Ureters: Bilateral kidneys enhance symmetrically. There is no dominant mass seen bilaterally. There is a cyst posterior inferior kidney on the right 1 .9 cm. This appears simple. No other definite focal renal abnormality. No intrarenal calculus or hydronephrosis. Bilateral ureters, as seen, appear to be within normal limits. There are phleboliths within the pelvis. GI Tract: Stomach is contracted and somewhat poorly evaluated though no focal well-defined abnormal finding is definitively is seen. If there is concern direct visualization is recommended. Small bowel demonstrates internal fluid without significant abnormal finding. No wall thickening or mass. There is contraction throughout the colon. Terminal ileum is normal. The appendix is not definitively seen though no secondary CT signs for appendicitis. Mild wall thickening of the colon cannot be excluded and colitis is Possible. Diverticulosis without focal diverticulitis. [id number] stool within the rectal vault without focal abnormal finding. Peritoneal Cavity: There is ascites which is [id number] very similar to the prior. No focal mass is seen. Retroperitoneum: No fluid collection. Lymph Nodes: There are numerous non enlarged mesenteric lymph nodes and a few within the gastrohepatic region which are upper limits of normal very similar to the prior without new adenopathy. Vasculature: Moderate to severe aortic atherosclerotic calcifications. No aortic or iliac aneurysm. Celiac, superior mesenteric, and inferior mesenteric arteries are grossly patent. Limited assessment of the portal and hepatic veins and IVC is unremarkable within limitations of the phase of IV contrast. There are calcifications at the origin of the branch vessels particularly the SMA and celiac and left renal artery which may cause at least some mild narrowing. Pelvis: Hysterectomy without definite pelvic abnormality. Bladder is contracted but does not demonstrate any significant focal abnormal finding. Bones/Soft Tissues: The bony structures demonstrate degenerative change throughout the spine with diffuse osteopenia. Schmorl's node in superior L2. No evidence to suggest acute fracture or dislocation. No lytic or blastic lesions. Mild diffuse fat stranding is seen in the subcutaneous tissues. Small fat- containing periumbilical hernia without complication. IMPRESSION: 1. Moderate pleural fluid collection on the left with compressive atelectasis. Infiltrate is felt less likely on the left but not excluded. 2. Findings of cirrhosis including cirrhotic appearance of the liver and splenic enlargement and varices particularly. 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 No hepatic lesion or mass. 3. Distention of the gallbladder nonspecific without other biliary abnormality. If there is concern ultrasound would be recommended. 4. Up to moderate ascites similar to the prior. 5. There is contraction of the colon. Some wall thickening throughout the colon cannot be excluded though this is underdistended. Mild diffuse colitis is not excluded. Diverticulosis without focal diverticulitis. Bowel throughout otherwise has a normal appearance. Appendix is not seen though no secondary CT signs for appendicitis. Moderate stool in the rectal vault. There may be hemorrhoids. No focal mass. If there is concern direct visualization is recommended. Stomach is also contracted some poorly evaluated though if there is concern direct visualization is recommended. 6. Benign-appearing cyst right kidney. No other renal or ureteral or bladder abnormality. Hysterectomy without pelvic abnormality. 7. Vascular calcification without aneurysm or dissection. Details and other incidental findings, as above. EXAM: CHEST ONE VIEW, FRONTAL VIEW ONLY. HISTORY: Pneumonia. COMPARISON: 09/11/2025. FINDINGS: TAVR hardware and CABG hardware again noted. Heart enlarged but stable. Mitral annular calcifications again noted. Aortic atherosclerosis present. No vascular congestion. Stable left pleural effusion with left basilar consolidation. Mild interstitial prominence throughout the right lung again noted. No new opacity. No pneumothorax. No acute osseous abnormality. IMPRESSION: Stable left pleural effusion and left basilar consolidation. Lab Results Last 24 Hours: 09/29/25 09/24/25 05:10 11:40 WBC 3.92 L RBC 3.16 L Hgb 8.7 L Hct 29.5 L MCV 93.4 MCH 27.5 MCHC 29.5 L RDW Coeff of Tawanna 15.0 H Plt Count 123 L Immature Gran % (Auto) 0.3 Neut % (Auto) 58.4 Lymph % (Auto) 26.5 [place] % (Auto) 11.0 H Eos % (Auto) 3.3 Baso % (Auto) 0.5 Neut # (Auto) 2.3 Lymph # (Auto) 1.0 [place] # (Auto) 0.4 Eos # (Auto) 0.1 Baso # (Auto) 0.0 Immature Gran # (Auto) 0.0 Sodium 138.2 Potassium 3.07 L Chloride 100.9 Carbon Dioxide 31.9 H Anion Gap 8.47 BUN 10.6 Creatinine 0.75 Estimated GFR (MDRD) 74.00 BUN/Creatinine Ratio 14.13 Glucose 116.7 H Calcium 9.48 Total Bilirubin 0.61 AST 45.2 H ALT 19.7 Alkaline Phosphatase 75.6 Total Protein 6.36 Albumin 3.00 L Globulin 3.36 Albumin/Globulin Ratio 0.89 O[facility] Parasites Final report Ova [facility] Parasite Comment Discharge Instructions Discharge Planning: Discharge Planning > [address] Yaritza Acevedo. Discharge Medications: Medications at Discharge (Home Meds & RX) nitroglycerin 0.4 mg sublingual tablet 0.4 mg sublingual PRN chest pain #60 tab-caps 03/21/23 lancets 30 gauge (Results ScorecardTouch Delica Plus Lancet) #100 ea 02/11/24 pen needle, diabetic 31 gauge x 3/16" (BD Ultra-Fine Mini Pen Needle) #200 ea 11/24/24 blood sugar diagnostic (VCEuch Ultra Test strips) #100 strips 11/25/24 lidocaine 5 % topical patch 2 patch topical QDAY #30 ea 03/19/25 albuterol sulfate 2.5 mg/0.5 mL solution for nebulization 2.5 mg (0.5 mL) inhalation 3-4XD PRN shortness of breath or wheezing #30 ea 04/20/25 nebulizer accessories #1 ea 04/20/25 nebulizer and compressor #1 ea 04/20/25 diclofenac sodium 1 % topical gel (Arthritis Pain (diclofenac)) 2 g topical QID PRN Arthritis pain 04/30/25 furosemide 20 mg tablet (Lasix) 20 mg PO QAM #30 tabs 07/09/25 potassium chloride 10 mEq capsule,extended release 10 meq PO QDAY #30 caps 07/09/25 insulin degludec 200 unit/mL (3 mL) subcutaneous pen (Tresiba FlexTouch U-200 insulin) 20 unit subcut .after breakfast 09/11/25 nadolol 40 mg tablet 40 mg PO BEDTIME 09/24/25 rosuvastatin 40 mg tablet 40 mg PO BEDTIME 09/24/25 triamcinolone acetonide 0.1 % topical cream 1 applic topical BID PRN rash 09/24/25 bismuth subsalicylate 262 mg chewable tablet (Pepto-Bismol) 524 mg (2 x 262 mg) PO QID 10 days #80 tabs 09/29/25 metronidazole 500 mg tablet 500 mg PO QID 10 days #40 tabs 09/29/25 omeprazole 20 mg capsule,delayed release 20 mg PO BIDAC2 10 days #20 caps 09/29/25 tetracycline 500 mg capsule 500 mg PO QID 10 days #40 caps 09/29/25 Discharge Plan Discharge Discharge Orders: Discharge Patient (ONCE); Ordered 09/29/25 Ordered By: ISAIAS ROSENBERG Activity Restrictions/Additional Instructions: DISCHARGE TO HOME DX: COLITIS YOU TESTED POSITIVE FOR CAMPYLOBACTER AND H PYLORI YOU'VE FINISHED AZITHROMYCIN FOR THE CAMPYLOBACTER WHILE HERE PHARMACY: [facility] UNTIL PCP FOLLOW UP DUE TO BLEEDING NEW MEDICATIONS: FLAGYL (ANTIBIOTIC) TETRACYCLINE (ANTIBIOTIC) PRILOSEC (STOMACH MED) PEPTO ( Care Plan Goals: Problem: Fatigue Goal: Identify measures to prevent fatigue Instructions: Evaluate activity pattern Evaluate the causes of fatigue Refer to community services as needed Problem: Diarrhea Goal: Achieve optimal elimination pattern Instructions: Evaluate causative factors of diarrhea Stool Assessment Perineal skin care Patient Disposition: HOME SELF-CARE Prescriptions: New bismuth subsalicylate [Pepto-Bismol] 262 mg Tablet,Chewable 524 mg PO QID 10 Days Qty: 80 0RF omeprazole 20 mg Capsule,Delayed Release(Dr/Ec) 20 mg PO BIDAC2 10 Days Qty: 20 0RF tetracycline 500 mg capsule 500 mg PO QID 10 Days Qty: 40 0RF metronidazole 500 mg tablet 500 mg PO QID 10 Days Qty: 40 0RF Continued albuterol sulfate 2.5 mg/0.5 mL solution for nebulization 2.5 mg inhalation 3-4XD PRN (Reason: shortness of breath or wheezing) Qty: 30 0RF diclofenac sodium [Arthritis Pain (diclofenac)] 1 % gel 2 g topical QID PRN (Reason: Arthritis pain) Rx Instructions: apply to single elbow, wrist or hand; for hand includes palm/fingers/back of hand insulin degludec [Tresiba FlexTouch U-200] 200 unit/mL (3 mL) insulin pen 20 unit subcut .after breakfast Patient Comments: Pt is ONLY taking 20 units after breakfast 09/24/2025 Rx Instructions: Was on 60 units (40 units q am and 20 units q pm). Basaglar not covered. Will drop to 52 units once daily in am. Can titrate up as needed. triamcinolone acetonide 0.1 % cream 1 applic topical BID PRN (Reason: rash) Rx Instructions: can use for 2 weeks at a time nadolol 40 mg tablet 40 mg PO BEDTIME rosuvastatin 40 mg tablet 40 mg PO BEDTIME Rx Instructions: TAKE ONE (1) TABLET (40 MG) BY MOUTH EVERY EVENING nitroglycerin 0.4 mg tablet, sublingual 0.4 mg sublingual PRN Qty: 60 0RF lidocaine 5 % adhesive patch,medicated 2 patch topical QDAY Qty: 30 3RF Rx Instructions: leave on most painful area for up to 12 hrs furosemide [Lasix] 20 mg tablet 20 mg PO QAM Qty: 30 2RF Patient Comments: Pt states she does not take this every day 09/24/2025 LB potassium chloride 10 mEq capsule, extended release 10 meq PO QDAY Qty: 30 2RF Discontinued Eliquis 5 MG tablet 5 mg PO BID 30 Days Qty: 60 2RF Rx Instructions: On hold for valve replacement No Action (DME) lancets [OneTouch Delica Plus Lancet] 30 gauge misc See Rx Instructions .ROUTE .COMPLEX Qty: 100 6RF Dose Instruction: TESTING 3 TIMES DAILY AND NEEDED. E11.9 Rx Instructions: TESTING 3 TIMES DAILY AND NEEDED. E11.9 (DME) pen needle, diabetic [BD Ultra-Fine Mini Pen Needle] 31 gauge x 3/16" needle See Rx Instructions .ROUTE .COMPLEX Qty: 200 12RF Dose Instruction: USE WITH INSULIN FOUR TIMES PER DAY. Rx Instructions: USE WITH INSULIN FOUR TIMES PER DAY. (DME) OneTouch Ultra Test Strip See Rx Instructions .ROUTE .COMPLEX Qty: 100 11RF Dose Instruction: TESTING 3 TIMES DAILY AND NEEDED. DX E11.9 Rx Instructions: TESTING 3 TIMES DAILY AND NEEDED. DX E11.9 (DME) nebulizer accessories Kit See Rx Instructions .ROUTE Qty: 1 0RF Rx Instructions: As directed (DME) nebulizer and compressor Device See Rx Instructions .ROUTE Qty: 1 0RF Rx Instructions: As directed Did you review [place] [employer]VERT[employer]GER for ALL controlled substances?: Not Applicable Discussed opioids are addictive and Narcan is available by prescription or from pharmacy.: No Condition: Stable Referrals: SHANNAN HERNÁNDEZ [GUIDE TRAVEL, GASTRO] - 11/02/25 8:30 am JANNETH STACY MD [Primary Care Provider, Family Practice] - 10/06/25 1:00 pm
== END 2025-09-29 11:30 | disposition home or self-care (01) | DRG 372 ==
LOC: MEDSURG B 09:17 → ED 09:17 → MEDSURG B 15:15
PROVIDERS: ADMIT Hospitalist; ATTEND Physician Assistant